=== PATIENT | female | born 1965 | race Hispanic/Latino ===

== ENCOUNTER → 2017-05-08 | Outpatient (CLI) | payer BC ==
--- NOTE | 2017-05-21 16:20 | Diagnostic Imaging Report ---
#[id number] - MGSCRBIL #BILATERAL FIRST EVER DIGITAL SCREENING MAMMOGRAM WITH CAD: 05/08/2017 CLINICAL: Routine screening. Baseline exam. No prior exams were available for comparison. Current study contains 4 films. There are scattered fibroglandular elements in both breasts. Current study was also evaluated with a Computer Aided Detection (CAD) system. There is a small oval mass with benign characteristics in the right breast at 3 o'clock middle depth. Scattered benign calcification and vascular calcification is present in both breasts. No other significant masses, calcifications, or other findings are seen in either breast. IMPRESSION: INCOMPLETE: NEEDS ADDITIONAL IMAGING EVALUATION The oval mass in the right breast is indeterminate. Spot compression views with possible ultrasound are recommended. The patient will be contacted by the Mammography Department to schedule this appointment. Fabricio Wu Jr., D.O. cw/:05/21/2017 11:04:14 Mechanical Facilities Technician: Brigette HOBBS)(Jodie), [facility] letter sent: Additional Imaging Needed Mammogram BI-RADS: 0 Indeterminate
== END ==
LOC: MAMMO 10:28
PROVIDERS: ATTEND Family Medicine
DX: Z12.31 Encounter for screening mammogram for malignant neoplasm of breast (principal)
CPT/HCPCS: G0202

== ENCOUNTER 2018-12-07 14:28 | Emergency (ER) | payer SELFPAY ==
[~2018-12-07] VITALS: Ht 154.9 cm; Wt 81.2 kg
--- OUTSIDE RECORDS SUMMARY | 2018-12-07 14:31 | XMS REPORT | Clinical Summary ---
Author Author [facility] Organization [facility] Address Unknown Phone Unavailable Care Team Providers Care Predatory Game Hunter Name Role Phone Asked, No Pcp PCP Unavailable Allergies No Known Allergies Medications End Date Status Medication Sig Dispensed Refills Start Date Active albuterol (ACCUNEB) 1.25 Take 1 ampule 0 mg/3 mL nebulizer by solution nebulization every 6 (six) hours as needed for wheezing. Active lisinopril Take 20 mg by 0 (PRINIVIL,ZESTRIL) 20 mg mouth daily. tablet Active benzonatate (TESSALON) Take 100 mg 0 100 MG capsule by mouth 2 (two) times a day as needed for cough. 01/07/2018 albuterol (PROAIR Inhale 1-2 1 Inhaler 0 HFA,PROVENTIL puffs every 6 8 HFA,VENTOLIN HFA) 90 (six) hours mcg/actuation inhaler as needed for wheezing for up to 30 days. 01/07/2018 albuterol (ACCUNEB) 2.5 Take 3 mL 75 mL 0 mg /3 mL (0.083 %) (2.5 mg 8 nebulizer solution total) by nebulization every 6 (six) hours as needed for wheezing for up to 30 days. Active Problems Not on file Encounters Care Team Description Date Type Specialty Orlando Temple MD Vaginal bleeding (Primary Dx); Acute pain of left knee; Medication refill; Rios cyst, left 12/08/2017 Emergency Emergency Medicine after 12/06/2017 Social History Date Tobacco Use Types Packs/Day Years Used Never Smoker Smokeless Tobacco: Never Used Alcohol Use Drinks/Week oz/Week Comments No Sex Assigned at Date Recorded Not on file Industry Job Start Date Occupation Not on file Not on file Not on file Travel End Travel History Travel Start No recent travel history available. Last Filed Vital Signs Time Taken Vital Sign Reading 12/08/2017 5:44 PM CDT Blood Pressure 142/75 12/08/2017 5:44 PM CDT Pulse 72 12/08/2017 4:10 PM CDT Temperature 37.2 C (98.9 F) 12/08/2017 5:44 PM CDT Respiratory Rate 18 12/08/2017 5:44 PM CDT Oxygen Saturation 97% - Inhaled Oxygen - Concentration 12/08/2017 12:50 PM CDT Weight 77.6 kg (171 lb) 12/08/2017 12:50 PM CDT Height 154.9 cm (5' 1") 12/08/2017 12:50 PM CDT Body Mass Index 32.31 Plan of Treatment Health Maintenance Due Date Last Done Comments BREAST CANCER SCREENING 2015 COLONOSCOPY SCREENING 2015 SHINGLES VACCINES (#1) 2015 INFLUENZA VACCINE 12/17/2018 Procedures Comments Procedure Name Priority Date/Time Associated Diagnosis US DUPLEX VENOUS LOWER STAT 12/08/2017 EXTREMITY LEFT 5:07 PM CDT URINALYSIS SCREEN AND Routine 12/08/2017 MICROSCOPY, WITH REFLEX 4:37 PM CDT TO CULTURE HCG QUALITATIVE, URINE Routine 12/08/2017 SCREEN 4:37 PM CDT GRAM STAIN Routine 12/08/2017 4:37 PM CDT URINE CULTURE Routine 12/08/2017 4:37 PM CDT XR KNEE 4+ VW LEFT STAT 12/08/2017 4:04 PM CDT ZZESTIMATED GFR STAT 12/08/2017 1:38 PM CDT COMPREHENSIVE METABOLIC STAT 12/08/2017 PANEL 1:38 PM CDT TYPE AND SCREEN Routine 12/08/2017 1:38 PM CDT HC COMPLETE BLD COUNT STAT 12/08/2017 W/AUTO DIFF 1:38 PM CDT after 12/06/2017 Results * PV Duplex Venous Lower Extremity (12/08/2017 5:07 PM CDT) Specimen Narrative Performed At EXAMINATION:US DUPLEX VENOUS LOWER EXTREMITY LEFT RADIANT CLINICAL HISTORY:rios cyst COMPARISON:None. TECHNIQUE:Grayscale, color Doppler, and spectral waveform analysis of the left lower extremity deep venous system was performed. The common femoral, superficial femoral, proximal deep femoral, greater saphenous, and popliteal veins were evaluated. The calf veins were also evaluated. FINDINGS: The left common femoral, superficial femoral, and popliteal veins are compressible. They demonstrate normal venous waveforms and response to augmentation. There is flow in the visualized calf veins. A 5 cm Rios cyst is noted.. The right common femoral vein is patent. IMPRESSION: A 5 cm left-sided Rios cyst is present. There is no evidence of deep venous thrombosis. [facility]-[id number] Procedure Note Interface, Radiology Results Incoming - 12/08/2017 5:12 PM CDT EXAMINATION: US DUPLEX VENOUS LOWER EXTREMITY LEFT CLINICAL HISTORY: rios cyst COMPARISON: None. TECHNIQUE: Grayscale, color Doppler, and spectral waveform analysis of the left lower extremity deep venous system was performed. The common femoral, superficial femoral, proximal deep femoral, greater saphenous, and popliteal veins were evaluated. The calf veins were also evaluated. FINDINGS: The left common femoral, superficial femoral, and popliteal veins are compressible. They demonstrate normal venous waveforms and response to augmentation. There is flow in the visualized calf veins. A 5 cm Rios cyst is noted.. The right common femoral vein is patent. IMPRESSION: A 5 cm left-sided Rios cyst is present. There is no evidence of deep venous thrombosis. [facility]-[id number] Performing Organization Address City/State/Zipcode Phone Number [facility] [address] [place] [address] * Urinalysis screen and microscopy, with reflex to culture (12/08/2017 4:37 PM CDT) Specimen site Clean catch [facility] OF [facility]Y AND GENOMIC MEDICINE Color, UA Yellow [facility] OF PATHOLOGY AND GENOMIC MEDICINE Appearance, UA Cloudy [facility] OF PATHOLOGY AND GENOMIC MEDICINE Specific 1.028 1.001 - 1.035 [facility] gravity, OF PATHOLOGY AND GENOMIC MEDICINE pH, UA 5.0 5.0 - 8.5 [facility] OF PATHOLOGY AND GENOMIC MEDICINE Protein, UA 1+ (A) Negative [facility] OF PATHOLOGY AND GENOMIC MEDICINE Glucose, UA Negative Negative [facility] OF PATHOLOGY AND GENOMIC MEDICINE Ketones, UA Trace (A) Negative [facility] OF PATHOLOGY AND GENOMIC MEDICINE Bilirubin, UA Negative Negative [facility] OF PATHOLOGY AND GENOMIC MEDICINE Blood, UA Large (A) Negative [facility] OF PATHOLOGY AND GENOMIC MEDICINE Nitrite, UA Negative Negative [facility] OF PATHOLOGY AND GENOMIC MEDICINE Urobilinogen, Negative <2.0 [facility] UA OF PATHOLOGY AND GENOMIC MEDICINE Leukocyte Small (A) Negative [facility] esterase, UA OF PATHOLOGY AND GENOMIC MEDICINE Epithelial Many /HPF [facility] cells, UA OF PATHOLOGY AND GENOMIC MEDICINE WBC, UA 46 (H) 0 - 5 /HPF [facility] OF PATHOLOGY AND GENOMIC MEDICINE RBC, UA >200 (H) 0 - 5 /HPF [facility] OF PATHOLOGY AND GENOMIC MEDICINE Bacteria, UA Trace None seen [facility] OF PATHOLOGY AND GENOMIC MEDICINE Yeast, UA None seen [facility] OF PATHOLOGY AND GENOMIC MEDICINE Yeast with None seen [facility] pseudohyphae, OF PATHOLOGY UA AND GENOMIC MEDICINE Calcium oxalate Few [facility] crystals, UA OF PATHOLOGY AND GENOMIC MEDICINE Specimen Urine Performing Organization Address City/[facility]/Zipcode Phone Number [facility] [address] [place] [address] PATHOLOGY AND [facility] MEDICINE * hCG qualitative, urine screen (12/08/2017 4:37 PM CDT) Pathologist [facility] hCG Negative Negative [facility] qualitative, Comment: OF PATHOLOGY urine The manufacturers stated AND GENOMIC sensitivity of HcG test for MEDICINE serum is >/=10 mIU/ml and urine is >/=20mIU/ml. Specimen Urine Performing Organization Address City/[facility]/Zipcode Phone Number [facility] [address] [place] [address] PATHOLOGY AND [facility] MEDICINE * Gram stain (12/08/2017 4:37 PM CDT) Gram stain Few WBC's [facility] result Occasional Gram positive cocci OF PATHOLOGY in pairs AND GENOMIC Occasional Gram positive rods MEDICINE Comment: Specimen Information Specimen Source: Urine Specimen Site: Clean catch Specimen Urine Performing Organization Address City/State/Zipcode Phone Number [facility] DEPART[facility] OF [address] [place] [address] PATHOLOGY AND GENOMIC MEDICINE * Urine culture (12/08/2017 4:37 PM CDT) Pathologist [facility] Urine culture Staphylococcus aureus [facility] isolate >10-5 cfu/ml OF PATHOLOGY This organism is Methicillin AND GENOMIC Sensitive. MEDICINE (A) Comment: Specimen Information Specimen Source: Urine Specimen Site: Clean catch Urine culture Mixed Gram positive zari [facility] isolate 10-3 cfu/ml OF PATHOLOGY (A) AND GENOMIC MEDICINE Specimen Urine Antibiotic Method Susceptibility Organism Clindamycin ROBBY <=0.5 mcg/mL: Resistant Staphylococcus aureus Erythromycin ROBBY >4 mcg/mL: Resistant Staphylococcus aureus Nitrofurantoin ROBBY <=16 mcg/mL: Susceptible Staphylococcus aureus Levofloxacin ROBBY <=1 mcg/mL: Susceptible Staphylococcus aureus Linezolid ROBBY 2 mcg/mL: Susceptible Staphylococcus aureus Oxacillin ROBBY 0.5 mcg/mL: Susceptible Staphylococcus aureus Penicillin G ROBBY <=0.125 mcg/mL: Susceptible Staphylococcus aureus Rifampin ROBBY <=0.5 mcg/mL: Susceptible Staphylococcus aureus Trimethoprim/Sulfamethoxazole ROBBY <=0.5/9.5 mcg/mL: Susceptible Staphylococcus aureus Tetracycline ROBBY <=0.5 mcg/mL: Susceptible Staphylococcus aureus Vancomycin ROBBY 1 mcg/mL: Susceptible Staphylococcus aureus Performing Organization Address City/[facility] Phone Number [facility] DEPARTMENT OF [address] [place] [address] PATHOLOGY AND GENOMIC MEDICINE * XR Knee 4+ Vw Left (12/08/2017 4:04 PM CDT) Specimen Narrative Performed At Procedure:XR KNEE 4VW LEFT RADIANT REFERRING PHYSICIAN: ORLANDO TEMPLE HISTORY:knee pain COMPARISON: None FINDINGS: No evidence of fracture or dislocation is seen. The joint spaces are relatively maintained. No osteolytic or osteoblastic lesion is identify. Regional soft tissue is unremarkable. No radiopaque foreign body is seen. XR KNEE 4VW LEFTacquired. IMPRESSION: No radiographic evidence of acute fracture or dislocation of the left knee. [facility]-[id number] Procedure Note Interface, Radiology Results Incoming - 12/08/2017 4:12 PM CDT Procedure:XR KNEE 4 VW LEFT REFERRING PHYSICIAN: ORLANDO TEMPLE HISTORY: knee pain COMPARISON: None FINDINGS: No evidence of fracture or dislocation is seen. The joint spaces are relatively maintained. No osteolytic or osteoblastic lesion is identify. Regional soft tissue is unremarkable. No radiopaque foreign body is seen. XR KNEE 4 VW LEFT acquired. IMPRESSION: No radiographic evidence of acute fracture or dislocation of the left knee. [facility]-[id number] Performing Organization Address City/State/Zipcode Phone Number [facility] [address] [place] [address] * Estimated GFR (12/08/2017 1:38 PM CDT) [facility] GFR Non Af Amer 88 mL/min/1.73 m2 [facility] OF [facility]OLOGY AND GENOMIC MEDICINE GFR Af Amer >90 mL/min/1.73 m2 [facility] Comment: OF PATHOLOGY Chronic kidney disease: <60 AND GENOMIC mL/min/1.73m2 MEDICINE Kidney failure: <15 mL/min/1.73m2 The estimated GFR is calculated from the IDMS-traceable Modification of Diet in Renal Disease Equation. The accuracy of the calculation is poor when the creatinine is normal. Calculated values >90 mL/min/1.73m2 are not reported. This equation has not been validated in children (<18 years), women, the elderly (>70 years), or ethnic groups other than Caucasians and Americans. Specimen Plasma specimen Performing Organization Address City/[facility]/Zipcode Phone Number [place] [address] [place] [address] PATHOLOGY AND GENOMIC MEDICINE * CBC with platelet and differential (12/08/2017 1:38 PM CDT) [facility] WBC 7.9 4.2 - 11.0 k/uL [facility] OF PATHOLOGY AND GENOMIC MEDICINE RBC 3.70 (L) 4.04 - 5.86 m/uL [facility] OF PATHOLOGY AND GENOMIC MEDICINE HGB 10.5 (L) 11.5 - 15.3 g/dL [facility] OF PATHOLOGY AND GENOMIC MEDICINE HCT 33.3 (L) 34.0 - 45.0 % [facility] OF PATHOLOGY AND GENOMIC MEDICINE MCV 90.0 80.0 - 98.0 fL [facility] OF PATHOLOGY AND GENOMIC MEDICINE MCH 28.4 27.0 - 34.0 pg [facility] OF PATHOLOGY AND GENOMIC MEDICINE MCHC 31.5 31.5 - 36.5 g/dL [facility] OF PATHOLOGY AND GENOMIC MEDICINE RDW - SD 43.5 37.0 - 51.0 fL [facility] OF PATHOLOGY AND GENOMIC MEDICINE MPV 9.4 7.4 - 10.4 fL [facility] OF PATHOLOGY AND GENOMIC MEDICINE Platelet count 409 (H) 150 - 400 k/uL [facility] OF PATHOLOGY AND GENOMIC MEDICINE Nucleated RBC 0.00 /100 WBC [facility] OF PATHOLOGY AND GENOMIC MEDICINE Neutrophils 74.4 (H) 36.0 - 66.0 % [facility] OF PATHOLOGY AND GENOMIC MEDICINE Lymphocytes 13.4 (L) 24.0 - 44.0 % [facility] OF PATHOLOGY AND GENOMIC MEDICINE Monocytes 7.8 (H) 0.0 - 6.0 % [facility] OF PATHOLOGY AND GENOMIC MEDICINE Eosinophils 3.5 0.0 - 6.0 % [facility] OF PATHOLOGY AND GENOMIC MEDICINE Basophils 0.5 0.0 - 1.2 % [facility] OF PATHOLOGY AND GENOMIC MEDICINE Immature 0.4 0.0 - 1.0 % [facility] granulocytes OF PATHOLOGY AND GENOMIC MEDICINE Specimen Blood Performing Organization Address City/[facility]/[place] [address] PATHOLOGY AND GENOMIC MEDICINE * Type and screen (12/08/2017 1:38 PM CDT) ABO grouping A [facility] OF PATHOLOGY AND GENOMIC MEDICINE Rh type NEG [facility]OLOGY AND GENOMIC MEDICINE Antibody screen NEG [facility] (gel) OF PATHOLOGY AND GENOMIC MEDICINE Specimen Blood Performing Organization Address City/[facility]/[place] [address] PATHOLOGY AND [facility] MEDICINE * Comprehensive metabolic panel (12/08/2017 1:38 PM CDT) Sodium 138 135 - 150 mEq/L [facility] OF PATHOLOGY AND GENOMIC MEDICINE Potassium 4.7 3.5 - 5.0 mEq/L [facility] OF PATHOLOGY AND GENOMIC MEDICINE Chloride 100 98 - 112 mEq/L [facility] OF PATHOLOGY AND GENOMIC MEDICINE CO2 30 24 - 31 mmol/L [facility] OF PATHOLOGY AND GENOMIC MEDICINE Anion gap 8@ANIO 7 - 15 mEq/L [facility] OF PATHOLOGY AND GENOMIC MEDICINE BUN 8 7 - 18 mg/dL [facility] OF PATHOLOGY AND GENOMIC MEDICINE Creatinine 0.70 0.50 - 0.90 mg/dL [facility] OF PATHOLOGY AND GENOMIC MEDICINE Glucose 118 (H) 65 - 100 mg/dL [facility] OF PATHOLOGY AND GENOMIC MEDICINE Calcium 9.7 8.3 - 10.2 mg/dL [facility] OF PATHOLOGY AND GENOMIC MEDICINE Protein 8.4 (H) 6.3 - 8.3 g/dL [facility] OF PATHOLOGY AND GENOMIC MEDICINE Albumin 3.3 (L) 3.5 - 5.0 g/dL [facility] OF PATHOLOGY AND GENOMIC MEDICINE A/G ratio 0.6 (L) 0.7 - 3.8 [facility] OF PATHOLOGY AND GENOMIC MEDICINE Alkaline 80 0 - 104 U/L [facility] phosphatase OF PATHOLOGY AND GENOMIC MEDICINE AST 20 10 - 35 U/L [facility] OF PATHOLOGY AND GENOMIC MEDICINE ALT 10 5 - 50 U/L [facility] OF PATHOLOGY AND GENOMIC MEDICINE Total bilirubin 0.3 0.2 - 1.2 mg/dL [facility] OF PATHOLOGY AND GENOMIC MEDICINE Specimen Plasma specimen Performing Organization Address City/State/Zipcode Phone Number [facility] [place] [address] PATHOLOGY AND GENOMIC MEDICINE after 12/06/2017 Insurance Type Payer Benefit Subscriber ID Effective Phone Address Plan / Dates Group HMO/PPO [facility] xxxxxxxxx 2017-P THCARE resent CHOICE/CHO ICE + Liability Advance Directives Patient has advance care planning documents on file. For more information, lester armendariz contact: All Strauss [address] [place] [address]
--- OUTSIDE RECORDS SUMMARY | 2018-12-07 14:31 | XMS REPORT | Continuity of Care Document ---
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 Name Role Phone [employer]Magic Information [employer] Unavailable Unavailable Problems Problem Status Onset Date Classification Date Reported Comments Source Villonodular synovitis , left knee 06/04/2018 11/14/2018 [facility] UNK Active 03/31/2018 [facility] KNEE ARTHROSCOPY Active 03/31/2018 [facility] Pain in left knee 03/04/2018 09/15/2018 [facility] [place] Discharge Diagnosis: Effusion, left knee 04/13/2017 04/16/2017 [facility] LEFT LEG PAIN Active 04/13/2017 [facility] Discharge Diagnosis: Pain and swelling of left knee 04/11/2017 04/14/2017 [facility] LEG PAIN Active 04/11/2017 [facility] LT KNEE Active 03/19/2017 [facility] [place] Discharge Diagnosis: Viral URI 11/24/2016 11/27/2016 [facility] SOB Active 11/24/2016 [facility] Discharge Diagnosis: Pain 11/05/2015 11/08/2015 [facility] LEFT SIDE PAIN Active 11/05/2015 [facility] Discharge Diagnosis: Chest pain 11/03/2014 11/06/2014 [facility] Discharge Diagnosis: Cough 11/03/2014 11/06/2014 [facility] CHEST PAIN/CONGESTION Active 11/03/2014 [facility] Discharge Diagnosis: Bronchitis 06/20/2014 06/22/2014 [facility] Discharge Diagnosis: Pneumonia 06/20/2014 06/22/2014 [facility] COUGH Active 06/20/2014 [facility] Effusion, left knee 09/15/2018 [facility] [place] Pain in left wrist 09/15/2018 [facility] [place] Pain in right wrist 09/15/2018 [facility] [place] Localized edema 09/15/2018 [facility] [place] Other tear of lateral meniscus, current injury, left knee, initial encounter 11/14/2018 [facility] Chondromalacia patellae, left knee 11/14/2018 [facility] Unspecified urinary incontinence 11/14/2018 [facility] use of antibiotics 11/14/2018 [facility] Exposure to other specified factors, initial encounter 11/14/2018 [place] Bronchitis Resolved Problem 11/14/2018 [facility], [facility] [place],[facility] [place] Cholecystitis Resolved Problem 11/14/2018 [facility], [facility] [place],[facility] [place] Effusion, left knee Active Problem 11/14/2018 [facility], [facility] [place],[facility] [place] Acute pain of left knee Active 11/05/2018 [facility] Medications Medication Details Route Status Patient Instructions Ordering Provider Order Date Source 72 HR Scopolamine 0.0139 MG/HR Transdermal Patch 1 patch, Route: TOP, Drug Form: ERFILM, Dosing Weight 73.636, kg, ONCE, Start date: 04/27/18 15:23:00 PATHOLOGY LABORATORY AIDE, Stop date: 04/27/18 15:23:00 CSTNotes: Change patch every 72 hours (Same as: Transderm-Scop) Inactive 04/27/2018 [facility] Dexamethasone 4 mg, 1 mL, Route: IV, Drug form: INJ, ONCE, Dosing Weight 73.636, kg, Start date: 04/27/18 15:22:00 PATHOLOGY LABORATORY AIDE, Stop date: 04/27/18 15:22:00 CSTNotes: Concentration: 4mg/ml Inactive 04/27/2018 [facility] Phenergan 12.5 mg, 0.5 mL, Route: IM, Drug form: INJ, ONCE, Dosing Weight 73.636, kg, Start date: 04/27/18 15:22:00 PATHOLOGY LABORATORY AIDE, Stop date: 04/27/18 15:22:00 CSTNotes: Do not give IV push. (Same as: Phenergan) Inactive 04/27/2018 [facility] Tramadol 50 mg, 1 tab, Route: PO, Drug form: TAB, Q6H, Dosing Weight 73.636, kg, PRN Pain Score 1-3, Start date: 04/27/18 15:03:00 PATHOLOGY LABORATORY AIDE, Duration: 30 day, Stop date: 05/27/18 15:02:00 CSTNotes: Not to exceed 4 00mg/day. (Same As: Ultram) Inactive 04/27/2018 [facility] Acetaminophen 325 MG / Hydrocodone Bitartrate 10 MG Oral Tablet 1 tab, Route: PO, Drug Form: TAB, Dosing Weight 73.636, kg, Q4H, PRN Pain Score 4-6, Start date: 04/27/18 15:03:00 PATHOLOGY LABORATORY AIDE, Duration: 30 day, Stop date: 05/27/18 15:02:00 CSTNotes: Do not exceed 4gm/day of acetaminophen. (Same as: [place] 325/10) Inactive 04/27/2018 [facility] acetaminophen (ANES) Route: IV, Drug form: INJ, ONCE, Stop date: 04/27/18 14:17:00 PATHOLOGY LABORATORY AIDE Inactive 04/27/2018 [facility] glycopyrrolate (ANES) Route: IV, Drug form: INJ, ONCE, Stop date: 04/27/18 14:17:00 PATHOLOGY LABORATORY AIDE Inactive 04/27/2018 [facility] neostigmine (ANES) Route: IV, Drug form: INJ, ONCE, Stop date: 04/27/18 14:17:00 PATHOLOGY LABORATORY AIDE Inactive 04/27/2018 [facility] rocuronium (ANES) Route: IV, Drug form: INJ, ONCE, Stop date: 04/27/18 14:14:00 PATHOLOGY LABORATORY AIDE Inactive 04/27/2018 [facility] metoprolol (ANES) Route: IV, Drug form: INJ, ONCE, Stop date: 04/27/18 14:04:00 PATHOLOGY LABORATORY AIDE Inactive 04/27/2018 [facility] hydromorphone (ANES) Route: IV, Drug form: INJ, ONCE, Stop date: 04/27/18 12:59:00 PATHOLOGY LABORATORY AIDE Inactive 04/27/2018 [facility] ondansetron (ANES) Route: IV, Drug form: INJ, ONCE, Stop date: 04/27/18 12:34:00 PATHOLOGY LABORATORY AIDE Inactive 04/27/2018 [facility] ceFAZolin (ANES) Route: IV, Drug form: INJ, ONCE, Stop date: 04/27/18 12:34:00 PATHOLOGY LABORATORY AIDE Inactive 04/27/2018 [facility] propofol (ANES) Route: IV, Drug form: INJ, ONCE, Stop date: 04/27/18 12:34:00 PATHOLOGY LABORATORY AIDE Inactive 04/27/2018 [facility] fentaNYL (ANES) Route: IV, Drug form: INJ, ONCE, Stop date: 04/27/18 12:34:00 PATHOLOGY LABORATORY AIDE Inactive 04/27/2018 [facility] dexamethasone (ANES) Route: IV, Drug form: INJ, ONCE, Stop date: 04/27/18 12:34:00 PATHOLOGY LABORATORY AIDE Inactive 04/27/2018 [facility] lidocaine (ANES) Route: IV, Drug form: INJ, ONCE, Stop date: 04/27/18 12:34:00 PATHOLOGY LABORATORY AIDE Inactive 04/27/2018 [facility] midazolam (ANES) Route: IV, Drug form: SOLN, ONCE, Stop date: 04/27/18 12:19:00 PATHOLOGY LABORATORY AIDE Inactive 04/27/2018 [facility] Lactated Ringers Injection IV (ANES) 1000 mL Route: IV, Total Volume: 1,000, Start date: 04/27/18 11:44:00 PATHOLOGY LABORATORY AIDE, Stop date: 04/27/18 12:44:00 PATHOLOGY LABORATORY AIDE Inactive 04/27/2018 [facility] Vancomycin 1,250 mg, Route: IV, ONCE, Dosing Weight 73.636, kg, Start date: 04/27/18 7:55:00 PATHOLOGY LABORATORY AIDE, Stop date: 04/27/18 7:55:00 PATHOLOGY LABORATORY AIDE, ABX Indication: Surgical ProphylaxisNotes: TIME CRITICAL MEDICATION (Same As: Vanc ocin) Infusion rate 2001 mg: infuse over 2.5 hours For adult patients only: Round to nearest 250 mg per Medical Staff approval MEDICATION WASTE Product Size: 1000 mg Product Wasted: ___ mg Inactive 04/27/2018 [facility] Calcium Chloride 0.0014 MEQ/ML / Potassium Chloride 0.004 MEQ/ML / Sodium Chloride 0.103 MEQ/ML / Sodium Lactate 0.028 MEQ/ML Injectable Solution 1,000 mL, Rate: 25 ml/hr, Infuse over: 40 hr, Route: IV, Dosing Weight 73.636 kg, Total Volume: 1,000, Start date: 04/27/18 7:54:00 PATHOLOGY LABORATORY AIDE, Duration: 30 day, Stop date: 05/27/18 7:53:00 PATHOLOGY LABORATORY AIDE, 1.81, m2 Inactive 04/27/2018 [facility] ceFAZolin + Sodium Chloride 0.9% IV 100 mL 2 gm, Route: IVPB, ONCALL, Start date: 04/27/18 6:00:00 PATHOLOGY LABORATORY AIDE, Duration: 1 doses or times, Stop date: 04/27/18 12:00:00 PATHOLOGY LABORATORY AIDE, ABX Indication: Surgical ProphylaxisNotes: (Same As: Sweta Goldmanzosuman) MEDICATION WASTE Product Size: 1000 mg Product Wasted: ___ mg Inactive 04/27/2018 [facility] Albuterol 0.83 MG/ML Inhalant Solution 2.49 mg, 3 mL, Route: NEB, Drug form: SOLN, Q20Min, Dosing Weight 73.636, kg, PRN Wheezing, Priority: STAT, Start date: 04/26/18 8:11:00 PATHOLOGY LABORATORY AIDE, Duration: 30 day, Stop date: 05/26/18 8:10:00 CSTNotes: SEE RT DOCUMENTATION (Same as: Proventil) No Longer Active 04/26/2018 [facility] Diphenhydramine 12.5 mg, 0.25 mL, Route: IVP, Drug form: INJ, Q6H, Dosing Weight 73.636, kg, PRN Itching, Start date: 04/26/18 8:11:00 PATHOLOGY LABORATORY AIDE, Duration: 30 day, Stop date: 05/26/18 8:10:00 CSTNotes: (Same as: Benadryl) No Longer Active 04/26/2018 [facility] Ondansetron 4 mg, 2 mL, Route: IVP, Drug form: INJ, ONCE, Dosing Weight 73.636, kg, PRN Nausea & Vomiting, Start date: 04/26/18 8:11:00 CSTNotes: (Same as: Zofran) MEDICATION WASTE Product Size: 4 mg Product Wasted: ___ mg No Longer Active 04/26/2018 [facility] Meperidine 12.5 mg, 0.5 mL, Route: IVP, Drug form: INJ, Q30Min, Dosing Weight 73.636, kg, PRN Other -See Comment, For shivering, Start date: 04/26/18 8:11:00 PATHOLOGY LABORATORY AIDE, Duration: 2 doses or times, Stop date: Limited # of timesNotes: (Same as: Demerol) "Use Precaution in Elderly, Seizure disorders, and Renal impairment" No Longer Active 04/26/2018 [facility] Naloxone 0.1 mg, 0.25 mL, Route: SUB-Q, Drug form: INJ, Q6H, Dosing Weight 73.636, kg, PRN Itching, Start date: 04/26/18 8:11:00 PATHOLOGY LABORATORY AIDE, Duration: 30 day, Stop date: 05/26/18 8:10:00 CSTNotes: Same as Narcan No Longer Active 04/26/2018 [facility] Morphine 4 mg, 1 mL, Route: IVP, Drug form: SOLN, Q5Min, Dosing Weight 73.636, kg, PRN Pain Score 7-10, Start date: 04/26/18 8:11:00 PATHOLOGY LABORATORY AIDE, Duration: 3 doses or times, Stop date: Limited # of timesNotes: (Same as:MORPhine Sulfate) No Longer Active 04/26/2018 [facility] Hydromorphone 0.5 mg, 0.5 mL, Route: IVP, Drug form: INJ, Q5Min, Dosing Weight 73.636, kg, PRN Pain Score 7-10, Start date: 04/26/18 8:11:00 PATHOLOGY LABORATORY AIDE, Duration: 4 doses or times, Stop date: Limited # of timesNotes: Frandy e as: Dilaudid No Longer Active 04/26/2018 [facility] Fentanyl 50 microgram, 1 mL, Route: IVP, Drug form: INJ, Q5Min, Dosing Weight 73.636, kg, PRN Pain Score 7-10, Priority: Routine, Start date: 04/26/18 8:11:00 PATHOLOGY LABORATORY AIDE, Duration: 2 doses or times, Stop date: Limited # of timesNotes: (Same as: Sublimaze) Preservative free. No Longer Active 04/26/2018 [facility] Oxycodone 10 mg, 10 mL, Route: NG, Drug form: LIQ, Q4H, Dosing Weight 73.636, kg, PRN Pain Score 7-10, Start date: 04/26/18 8:11:00 PATHOLOGY LABORATORY AIDE, Duration: 30 day, Stop date: 05/26/18 8:10:00 CSTNotes: (Same as: 'Roxic odone) No Longer Active 04/26/2018 [facility] Flumazenil 0.2 mg, 2 mL, Route: IVP, Drug form: INJ, PRN, Dosing Weight 73.636, kg, PRN Benzodiazepine Reversal, Initial dose, Start date: 04/26/18 8:11:00 PATHOLOGY LABORATORY AIDE, Duration: 30 day, Stop date: 05/26/18 8:10:00 PATHOLOGY LABORATORY AIDE Notes: (Same as: Romazicon) No Longer Active 04/26/2018 [facility] Acetaminophen 1,000 mg, 100 mL, Route: IVPB, Drug form: INJ, ONCE, Dosing Weight 73.636, kg, PRN Pain Score 1-3, Start date: 04/26/18 8:11:00 CSTNotes: Infuse over 15 minutes Do not exceed 4gm/day of acetaminophen MEDICATION WASTE Product Size: 1000 mg Product Wasted: ___ mg No Longer Active 04/26/2018 [facility] Ketorolac 30 mg, 1 mL, Route: IVP, Drug form: INJ, ONCE, Dosing Weight 73.636, kg, Start date: 04/26/18 8:11:00 PATHOLOGY LABORATORY AIDE, Stop date: 04/26/18 8:11:00 CSTNotes: (Same as:Toradol) IV bolus must be given >15 seconds. Give IM administration slowly and deeply into the muscle. Not for use > 4 days MEDICATION WASTE Product Size: 30 mg Product Wasted: ___ mg No Longer Active 04/26/2018 [facility] Hydralazine 10 mg, 0.5 mL, Route: IVP, Drug form: INJ, Q20Min, Dosing Weight 73.636, kg, PRN Elevated BP, Start date: 04/26/18 8:11:00 PATHOLOGY LABORATORY AIDE, Duration: 2 doses or times, Stop date: Limited # of timesNotes: (Same as: Apresoline) Push over 5 minutes No Longer Active 04/26/2018 [facility] Labetalol 10 mg, 2 mL, Route: IVP, Drug form: INJ, Q5Min, Dosing Weight 73.636, kg, PRN Elevated BP, Start date: 04/26/18 8:11:00 PATHOLOGY LABORATORY AIDE, Duration: 5 doses or times, Stop date: Limited # of timesNotes: (Same as: Nor modyne, Trandate) Push over 2 minutes Give bolus over 2-3 minutes. No Longer Active 04/26/2018 [facility] esmolol 10 mg, 1 mL, Route: IVP, Drug form: INJ, Q5Min, Dosing Weight 73.636, kg, PRN Other -See Comment, Start date: 04/26/18 8:11:00 PATHOLOGY LABORATORY AIDE, Duration: 5 doses or times, Stop date: Limited # of timesNotes: (Same as: Brevibloc) No Longer Active 04/26/2018 [facility] amoxicillin 500 mg oral capsule 500 mg=1 cap, PO, TID, 0 Refill(s) Active 04/16/2018 [facility] ketorolac (TORADOL) 60 mg/2 mL injection 60 mg Intramuscular Inactive 01/30/2018 [facility] Ketorolac 60 Mg/2 Ml Intramuscular Solution Intramuscular Inactive 01/30/2018 [facility] Ketorolac 60 Mg/2 Ml Intramuscular Solution Intramuscular Inactive 01/30/2018 [facility] indomethacin (INDOCIN) 50 mg capsule Take 1 capsule by mouth 2 times daily as needed for Pain. Oral Active 01/30/2018 [facility] Indomethacin 50 Mg Capsule Take 1 capsule by mouth 2 times daily as needed for Pain. Oral Active 01/30/2018 [facility] Ondansetron 4 MG Disintegrating Tablet [Zofran] 4 mg=1 tab, PO, BID, PRN Nausea and Vomiting, Dissolve tab under tongue, # 10 tab, 0 Refill(s) Active 04/14/2017 [facility] Motrin 600 mg oral tablet 600 mg=1 tab, PO, Q6H, PRN Pain, take with food, # 30 tab, 0 Refill(s) No Longer Active 04/14/2017 [facility] tramadol hydrochloride 50 MG Oral Tablet 50 mg=1 tab, PO, BID, X 15 day, # 30 tab, 0 Refill(s) Active 04/14/2017 [facility] Zofran ODT 4 mg, Route: PO, Drug form: TABDIS, ONCE, Dosing Weight 80, kg, Priority: STAT, Start date: 04/13/17 17:33:00 PATHOLOGY LABORATORY AIDE, Stop date: 04/13/17 17:33:00 PATHOLOGY LABORATORY AIDE Inactive 04/13/2017 [facility] Acetaminophen 325 MG / Hydrocodone Bitartrate 5 MG Oral Tablet [[place] 5/325] 2 tab, Route: PO, Drug Form: TAB, Dosing Weight 80, kg, ONCE, STAT, Start date: 04/13/17 17:33:00 PATHOLOGY LABORATORY AIDE, Stop date: 04/13/17 17:33:00 PATHOLOGY LABORATORY AIDE Inactive 04/13/2017 [facility] tramadol hydrochloride 50 MG Oral Tablet [Ultram] 50 mg=1 tab, PO, Q4H, PRN pain, X 3 day, # 20 tab, 0 Refill(s) Active 04/12/2017 [facility] Acetaminophen 325 MG / Hydrocodone Bitartrate 10 MG Oral Tablet [[place] 10/325] 1 tab, Route: PO, Drug Form: TAB, Dosing Weight 80, kg, ONCE, STAT, Start date: 04/11/17 17:47:00 PATHOLOGY LABORATORY AIDE, Stop date: 04/11/17 17:47:00 CSTNotes: Do not exceed 4gm/day of acetaminophen. (Same as: [place] 325/10) Inactive 04/11/2017 [facility] Albuterol 0.83 MG/ML Inhalant Solution 2.49 mg=3 mL, NEB, Q6H, PRN as needed for shortness of breath, # 120 ea, 3 Refill(s) Active 11/24/2016 [facility] GI cocktail 30 mL, Route: PO, Drug Form: SUSP, Dosing Weight 77.273, kg, ONCE, STAT, Start date: 11/24/16 5:57:00 CDT, Stop date: 11/24/16 5:57:00 CDTNotes: G.I. Cocktail=antacid with simethicone 22.5 mL - lidocaine viscous 7.5 mL Inactive 11/24/2016 [facility] Dexamethasone 10 mg, Route: IVP, ONCE, Dosing Weight 77.273, kg, Priority: STAT, Start date: 11/24/16 5:57:00 CDT, Stop date: 11/24/16 5:57:00 CDT Inactive 11/24/2016 [facility] Acetaminophen 300 MG / Codeine Phosphate 30 MG Oral Tablet [Tylenol with Codeine #3] 1 - 2 tab, PO, Q6H, PRN Pain, X 4 day, # 24 tab, 0 Refill(s) Inactive 11/24/2016 [facility] Saline Flush 0.9% 10 mL, Route: IVP, Drug Form: INJ, Dosing Weight 77.273, kg, PRN, PRN Line Flush, Start date: 11/24/16 4:11:00 CDT, Duration: 30 day, Stop date: 12/24/16 4:10:00 CDTNotes: (Same as: BD Posiflush) Inactive 11/24/2016 [facility] Ibuprofen 800 mg, Route: PO, Drug form: TAB, ONCE, Dosing Weight 78.182, kg, Priority: STAT, Start date: 11/05/15 12:43:00 CDT, Stop date: 11/05/15 12:43:00 CDT Inactive 11/05/2015 [facility] Cyclobenzaprine hydrochloride 5 MG Oral Tablet [Flexeril] 5 mg=1 tab, PO, TID, X 7 day, # 21 tab, 0 Refill(s) Active 11/05/2015 [facility] Naproxen 500 MG Oral Tablet [Naprosyn] 500 mg=1 tab, PO, BID, # 60 tab, 0 Refill(s) Active 11/05/2015 [facility] 200 ACTUAT Albuterol 0.09 MG/ACTUAT Metered Dose Inhaler 2 puff, INHALATION, QID, PRN for wheezing, # 25 gm, 0 Refill(s) Active 11/03/2014 [facility] predniSONE 20 mg oral tablet 60 mg=3 tab, PO, Daily, Take 3 tablets for 60 mg dose, X 3 day, # 9 tab, 0 Refill(s)Special Instructions: Take 3 tablets for 60 mg dose Active 11/03/2014 [facility] homatropine methylbromide 0.3 MG/ML / Hydrocodone Bitartrate 1 MG/ML Oral Solution [Hycodan] 5 ml, PO, Q4H, PRN for cough, X 14 day, # 420 mL, 0 Refill(s) Active 11/03/2014 [facility] homatropine methylbromide 0.3 MG/ML / Hydrocodone Bitartrate 1 MG/ML Oral Solution [Hycodan] 5 mL, Route: PO, Dosing Weight 78.182, kg, Q4H, Start date: 11/03/14 12:00:00, Duration: 30 day, Stop date: 12/03/14 8:00:00 Inactive 11/03/2014 [facility] homatropine methylbromide 0.3 MG/ML / Hydrocodone Bitartrate 1 MG/ML Oral Solution 5 mL, Route: PO, Dosing Weight 78.182, kg, Q4H, Start date: 11/03/14 12:00:00, Duration: 30 day, Stop date: 12/03/14 8:00:00 Inactive 11/03/2014 [facility] homatropine methylbromide 0.3 MG/ML / Hydrocodone Bitartrate 1 MG/ML Oral Solution [Hycodan] 5 mL, Route: PO, Dosing Weight 78.182, kg, ONCE, Start date: 11/03/14 11:02:00, Stop date: 11/03/14 11:02:00 Inactive 11/03/2014 [facility] Dexamethasone 10 mg, Route: IM, ONCE, Dosing Weight 78.182, kg, Priority: STAT, Start date: 11/03/14 10:42:00, Stop date: 11/03/14 10:42:00 Inactive 11/03/2014 [facility] Albuterol 0.833 MG/ML / Ipratropium [place] 0.167 MG/ML Inhalant Solution [DuoNeb] 3 ml, Route: INHALATION, Drug Form: SOLN, Dosing Weight 78.182, kg, PRN, PRN Respiratory Protocol, Start date: 11/03/14 10:28:00, Duration: 30 day, Stop date: 12/03/14 10:27:00Notes: (Same as: Duoneb) Inactive 11/03/2014 [facility] albuterol CFC free 90 mcg/inh inhalation aerosol with adapter 2 puff, INHALATION, Q4H, for wheezing, # 9 gm, 0 Refill(s) Active 06/20/2014 [facility] Levofloxacin 750 MG Oral Tablet [Levaquin] 750 mg=1 tab, PO, Q24H, # 10 tab, 0 Refill(s) Active 06/20/2014 [facility] Prednisone 60 mg, Route: PO, Drug form: TAB, ONCE, Dosing Weight 78.182, kg, Priority: STAT, Start date: 06/20/14 4:47:00, Stop date: 06/20/14 4:47:00 Inactive 06/20/2014 [facility] Levaquin 750 mg, 1 tab, Route: PO, Drug form: TAB, ONCE, Dosing Weight 78.182, kg, Start date: 06/20/14 4:47:00, Stop date: 06/20/14 4:47:00Notes: Do not give w/antacids, dairy pdt & minerals Take 1 hr before or 2 hr after dairy products Inactive 06/20/2014 [facility] Albuterol 0.83 MG/ML Inhalant Solution 2.49 mg, 3 mL, Route: NEB, Drug form: SOLN, Q15Min, Dosing Weight 78.182, kg, Priority: STAT, Start date: 06/20/14 4:47:00, Duration: 2 doses or times, Stop date: 06/20/14 5:02:00Notes: SEE RT DOCUMENTATION (Same as: Proventil) Inactive 06/20/2014 [facility] Ketorolac 60 mg, Route: IM, Drug form: INJ, ONCE, Dosing Weight 78.182, kg, Priority: STAT, Start date: 06/20/14 4:46:00, Stop date: 06/20/14 4:46:00 Inactive 06/20/2014 [facility] Albuterol 0.833 MG/ML / Ipratropium [place] 0.167 MG/ML Inhalant Solution [DuoNeb] 3 ml, Route: INHALATION, Drug Form: SOLN, Dosing Weight 78.182, kg, PRN, PRN Respiratory Protocol, Start date: 06/20/14 4:46:00, Duration: 30 day, Stop date: 07/20/14 4:45:00Notes: (Same as: Duoneb) Inactive 06/20/2014 [facility] Allergies, Adverse Reactions, Alerts Substance Category Reaction Severity Reaction type Status Date Reported Comments Source No Known Medication Allergies Assertion Drug allergy [facility] Immunizations No Data Provided for This Section Results Order Name Results Value Reference Range Date Interpretation Comments Source URINE CHEM U Preg Negative (04/27/18 9:55 AM) Negative 04/27/2018 [facility] RAPID Grp A Strep Scr Negative (11/24/16 4:36 AM) Negative 11/24/2016 [facility] CARDIAC ENZYMES CK MB 0.9 0.5 - 3.6 11/24/2016 [facility] CARDIAC ENZYMES BNP 7 <=100 pg/mL 11/24/2016 [facility] CARDIAC ENZYMES Troponin-I <0.02 0.00 - 0.40 11/24/2016 [facility] CARDIAC ENZYMES Total CK 149 12 - 191 11/24/2016 [facility] CARDIAC ENZYMES CK MB Index 0.6 0.0 - 2.5 11/24/2016 [facility] ELECTROLYTES AGAP 10.5 10.0 - 20.0 11/24/2016 [facility] ELECTROLYTES Bili Total 0.4 0.2 - 1.3 11/24/2016 [facility] ELECTROLYTES B/C Ratio 17 6 - 25 11/24/2016 [facility] ELECTROLYTES eGFR 101 11/24/2016 Result Comment: The eGFR is calculated using the CKD-EPI formula. In most young, healthy individuals the eGFR will be >90 mL/min/1.73m2. The eGFR declines with age. An eGFR of 60-89 may be normal in some populations, particularly the elderly, for whom the CKD-EPI formula has not been extensively validated. Use of the eGFR is not recommended in the following populations:

Individuals with unstable creatinine concentrations, including patients and those with serious co-morbid conditions.

Patients with extremes in muscle mass or diet.

The data above are obtained from the National Kidney Disease Education Program (NKDEP) which additionally recommends that when the eGFR is used in patients with extremes of body mass index for purposes of drug dosing, the eGFR should be multiplied by the estimated BMI. [facility] ELECTROLYTES A/G Ratio 0.9 0.7 - 1.6 11/24/2016 [facility] ELECTROLYTES Globulin 3.9 2.7 - 4.2 11/24/2016 [facility] ELECTROLYTES Potassium Lvl 3.5 3.5 - 5.1 11/24/2016 [facility] ELECTROLYTES ALT 16 0 - 65 11/24/2016 [facility] ELECTROLYTES Albumin Lvl 3.4 3.5 - 5.0 11/24/2016 [facility] ELECTROLYTES Total Protein 7.3 6.4 - 8.4 11/24/2016 [facility] ELECTROLYTES Calcium Lvl 8.9 8.5 - 10.5 11/24/2016 [facility] ELECTROLYTES CO2 27 24 - 32 11/24/2016 [facility] ELECTROLYTES Chloride Lvl 104 95 - 109 11/24/2016 [facility] ELECTROLYTES Sodium Lvl 138 135 - 145 11/24/2016 [facility] ELECTROLYTES Glucose Lvl 93 70 - 99 11/24/2016 [facility] ELECTROLYTES Creatinine Lvl 0.69 0.50 - 1.40 11/24/2016 [facility] ELECTROLYTES BUN 12 7 - 22 11/24/2016 [facility] ELECTROLYTES Alk Phos 87 39 - 136 11/24/2016 [facility] ELECTROLYTES AST 17 0 - 37 11/24/2016 [facility] ENDOCRINOLOGY S Preg Negative *NA* (11/24/16 4:32 AM) Negative 11/24/2016 [facility] HEMATOLOGY PTT 33.0 22.9 - 35.8 11/24/2016 [facility] HEMATOLOGY PT 14.2 12.0 - 14.7 11/24/2016 [facility] HEMATOLOGY INR 1.08 0.85 - 1.17 11/24/2016 [facility] RBC 3.85 4.20 - 5.40 11/24/2016 [facility] Hgb 9.4 12.0 - 16.0 11/24/2016 [facility] WBC 7.0 3.7 - 10.4 11/24/2016 [facility] MCH 24.4 27.0 - 31.0 11/24/2016 [facility] Hct 29.3 36.0 - 48.0 11/24/2016 [facility] RDW 16.8 11.5 - 14.5 11/24/2016 [facility] [facility] [place] MCHC 32.0 32.0 - 36.0 11/24/2016 [facility] MCV 76.2 80.0 - 98.0 11/24/2016 [facility] MPV 8.0 7.4 - 10.4 11/24/2016 [facility] Platelet 360 133 - 450 11/24/2016 [facility] Eosinophils # 0.4 0.0 - 0.5 11/24/2016 [facility] Lymphocytes # 1.2 1.0 - 5.5 11/24/2016 [facility] Monocytes # 0.6 0.0 - 0.8 11/24/2016 [facility] Microcyte 1+ *ABN* (11/24/16 4:32 AM) None Seen 11/24/2016 [facility] Basophils # 0.1 0.0 - 0.2 11/24/2016 [facility] Basophils 0.9 0.0 - 1.0 11/24/2016 [facility] Segs-Bands # 4.9 1.5 - 8.1 11/24/2016 [facility] Eosinophils 5.1 0.0 - 4.0 11/24/2016 [facility] Monocytes 7.9 2.0 - 12.0 11/24/2016 [facility] Segs 69.3 45.0 - 75.0 11/24/2016 [facility] Lymphocytes 16.8 20.0 - 40.0 11/24/2016 [facility] Pathology Reports No Data Provided for This Section Diagnostic Reports Report Value Date Source Knee wo contrast MRI EXAMINATION: MRI of the left knee without contrast. HISTORY: M25.562 Pain in left knee - M25.562 Pain in left knee; AGE: 52 years GENDER: Female COMPARISON: Left knee radiographs 04/13/2017 TECHNIQUE: Multiplanar, multisequence magnetic resonance imaging of the left knee is performed with an extremity coil without contrast. FINDINGS: Menisci: Medial: The anterior horn, body, and posterior horn are intact. Lateral: The anterior horn, body, and posterior horn are intact. Ligaments: The anterior cruciate ligament and posterior cruciate ligament are intact. The medial collateral ligament and lateral collateral ligament complex are intact. Extensor mechanism: The extensor mechanism is intact. Muscles: There is normal signal intensity and muscle bulk of the musculature at the knee. Cartilage: There is no significant reactive marrow change. The patellofemoral articular cartilage is intact.. The medial tibiofemoral articular cartilage demonstrates grade 2 chondral thinning.. The lateral tibiofemoral articular cartilage demonstrates grade 2 chondral thinning.. Bone: There is moderate marrow edema in the medial tibial spine with focal cortical erosive change. In addition, there is also marrow edema in the marginal lateral femoral condyle with mild cortical indistinctness at this site. Mild marrow edema in the posterior, medial tibial plateau. There are no suspicious bone marrow replacing lesions. Soft tissues: There is large knee joint effusion with marked nodular synovial thickening. Multiple foci of decreased T2 signal within the synovium in the suprapatellar recess. Large multiloculated Rios's cyst. IMPRESSION: 1. 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 Mild erosive change in the medial tibial spine and marginal, femoral condyle. 2. Mild marrow edema in the posterior, medial tibial plateau may represent marrow contusion or developing osseous erosion. 02/26/2018 ALICIA Swenson Wrist complete Bilateral DX EXAM: Wrist complete Bilateral DX HISTORY: - M25.532 Pain in left wrist;M25.531 Pain in right wrist COMPARISON: None 3 views of both wrists. FINDINGS: No fracture is seen. Alignment is normal. There is no significant degenerative change. IMPRESSION: No significant abnormality. 02/26/2018 ALICIA Swenson Knee series 3 views DX EXAM: XR LEFT KNEE 3 VIEWS DATE: 04/13/2017 at 1737 hours INDICATION: - swelling and pain x 3 weeks COMPARISON: April 11, 2017 TECHNIQUE: 3 views of the knee FINDINGS: No acute fracture or malalignment is identified. There is a large knee joint effusion. Minimal subcutaneous fat stranding at the medial aspect of the distal left femur. No additional soft tissue abnormality is identified. IMPRESSION: Large knee joint effusion and minimal subcutaneous edema medial to distal left femur without underlying bony abnormality. UT SECTION: ER 04/13/2017 [facility] Knee series 3 views DX Exam: Left Knee series 3 views DX Clinical Indication: - pain and swelling. Comparison: None FINDINGS: Frontal, lateral and oblique views of the left knee were obtained. There is no fracture or dislocation. The joint spaces are maintained. There is no knee region soft tissue swelling. There is a moderate suprapatellar joint effusion. There are no radiopaque foreign bodies. If there is further concern, recommend follow-up radiographs or MRI for complete assessment. IMPRESSION: 1. No acute fracture or subluxation. 2. Moderate suprapatellar effusion SL: [id number] 04/11/2017 [facility] 1view DX Clinical Indication: - cough; Comparison: 11/03/2014 Technique: X-ray chest frontal projection FINDINGS: There is no consolidation, pleural effusion or pneumothorax. The heart is normal in size. The mediastinum and holly are unremarkable. The visualized bones and soft tissues are within normal limits. IMPRESSION: No chest radiographic evidence of acute cardiopulmonary disease. SL: [id number] 11/24/2016 [facility] 2 views DX PA and LATERAL CHEST (2 views) HISTORY: Cough and fever Comparison is made to 06/20/2014. A study of 02/16/2012 was reviewed. FINDINGS: The lungs are clear. There has been resolution of the right-sided pneumonia noted on 06/20/2014 without sequela. There is now no evidence of an active or acute process within the chest. There are no pleural effusions. The heart and pulmonary vasculature are within normal limits. The regional skeleton is unremarkable. There are surgical clips in the right upper quadrant consistent with a prior cholecystectomy. CONCLUSION: 1. No active disease. 2. Resolution of right-sided pneumonia from 06/20/2014 without sequela. 3. There are surgical clips in the right upper quadrant consistent with a prior cholecystectomy. Coding: Chest 2 views CPT Code: 40971 SL: 13 Bharath Calderon M.D. 11/03/2014 [facility] Consultation Notes No Data Provided for This Section Discharge Summaries No Data Provided for This Section History and Physicals No Data Provided for This Section Vital Signs Vital Sign Value Date Comments Source Systolic (mm Hg) 155 04/27/2018 [facility] Diastolic (mm Hg) 75 04/27/2018 [facility] Respitory Rate 16 04/27/2018 [facility] Systolic (mm Hg) 155 04/27/2018 [facility] Diastolic (mm Hg) 75 04/27/2018 [facility] Respitory Rate 17 04/27/2018 [facility] Systolic (mm Hg) 157 04/27/2018 [facility] Diastolic (mm Hg) 77 04/27/2018 [facility] Respitory Rate 15 04/27/2018 [facility] Temperature Oral (F) 98.1 F 04/16/2018 [facility] Heart Rate 64 04/16/2018 [facility] BMI Calculated 30.67 04/16/2018 [facility] Weight 73.636 04/16/2018 [facility] Height 154.94 cm 04/16/2018 [facility] Systolic (mm Hg) 144 01/30/2018 [facility] Diastolic (mm Hg) 65 01/30/2018 [facility] Heart Rate 73 01/30/2018 [facility] Temperature Oral (F) 36.61 Mikayla 01/30/2018 [facility] Respitory Rate 16 01/30/2018 [facility] Height 152.4 cm 01/30/2018 [facility] Weight 72.303 01/30/2018 [facility] BMI Calculated 31.13 01/30/2018 [facility] Respitory Rate 20 04/14/2017 [facility] Heart Rate 63 04/14/2017 [facility] Systolic (mm Hg) 129 04/14/2017 [facility] Diastolic (mm Hg) 80 04/14/2017 [facility] Temperature Oral (F) 98.3 F 04/14/2017 [facility] Respitory Rate 18 04/14/2017 [facility] Systolic (mm Hg) 136 04/14/2017 [facility] Diastolic (mm Hg) 84 04/14/2017 [facility] Heart Rate 88 04/14/2017 [facility] Temperature Oral (F) 98.0 F 04/13/2017 [facility] Heart Rate 91 04/13/2017 [facility] Respitory Rate 18 04/13/2017 [facility] Systolic (mm Hg) 141 04/13/2017 [facility] Diastolic (mm Hg) 85 04/13/2017 [facility] Systolic (mm Hg) 122 04/12/2017 [facility] Diastolic (mm Hg) 81 04/12/2017 [facility] Temperature Oral (F) 98.1 F 04/12/2017 [facility] Respitory Rate 17 04/12/2017 [facility] BMI Calculated 33.32 04/11/2017 [facility] Weight 80 04/11/2017 [facility] Height 154.94 cm 04/11/2017 [facility] Systolic (mm Hg) 150 04/11/2017 [facility] Diastolic (mm Hg) 85 04/11/2017 [facility] Heart Rate 100 04/11/2017 [facility] Respitory Rate 18 04/11/2017 [facility] Temperature Oral (F) 97.3 F 04/11/2017 [facility] Respitory Rate 18 11/24/2016 [facility] Systolic (mm Hg) 139 11/24/2016 [facility] Diastolic (mm Hg) 78 11/24/2016 [facility] Systolic (mm Hg) 130 11/24/2016 [facility] Diastolic (mm Hg) 70 11/24/2016 [facility] Respitory Rate 17 11/24/2016 [facility] Temperature Oral (F) 98 F 11/24/2016 [facility] Systolic (mm Hg) 126 11/24/2016 [facility] Diastolic (mm Hg) 78 11/24/2016 [facility] Respitory Rate 20 11/24/2016 [facility] Heart Rate 88 11/24/2016 [facility] Heart Rate 79 11/24/2016 [facility] Temperature Oral (F) 98.4 F 11/24/2016 [facility] Height 154.94 cm 11/24/2016 [facility] Weight 77.273 11/24/2016 [facility] BMI Calculated 32.19 11/24/2016 [facility] Temperature Oral (F) 98.5 F 11/24/2016 [facility] Heart Rate 94 11/24/2016 [facility] Respitory Rate 18 11/05/2015 [facility] Systolic (mm Hg) 128 11/05/2015 [facility] Diastolic (mm Hg) 78 11/05/2015 [facility] Heart Rate 79 11/05/2015 [facility] Temperature Oral (F) 97.7 F 11/05/2015 [facility] Systolic (mm Hg) 144 11/03/2014 [facility] Diastolic (mm Hg) 89 11/03/2014 [facility] Respitory Rate 16 11/03/2014 [facility] Heart Rate 77 11/03/2014 [facility] Temperature Oral (F) 98.2 F 11/03/2014 [facility] Respitory Rate 20 11/03/2014 [facility] Weight 78.182 11/03/2014 [facility] Respitory Rate 16 11/03/2014 [facility] Temperature Oral (F) 98 F 11/03/2014 [facility] Systolic (mm Hg) 156 11/03/2014 [facility] Diastolic (mm Hg) 98 11/03/2014 [facility] Heart Rate 84 11/03/2014 [facility] Heart Rate 87 06/20/2014 [facility] Temperature Oral (F) 98.3 F 06/20/2014 [facility] Respitory Rate 18 06/20/2014 [facility] Diastolic (mm Hg) 99 06/20/2014 [facility] Systolic (mm Hg) 138 06/20/2014 [facility] Systolic (mm Hg) 156 06/20/2014 [facility] Diastolic (mm Hg) 101 06/20/2014 [facility] Respitory Rate 20 06/20/2014 [facility] Heart Rate 108 06/20/2014 [facility] Respitory Rate 20 06/20/2014 [facility] Systolic (mm Hg) 170 06/20/2014 [facility] Heart Rate 18 06/20/2014 [facility] Diastolic (mm Hg) 94 06/20/2014 [facility] Temperature Oral (F) 98.1 F 06/20/2014 [facility] Weight 78.182 06/20/2014 [facility] Height 154.94 cm 06/20/2014 [facility] BMI Calculated 32.57 06/20/2014 [facility] Encounters Location Location Details Encounter Type Encounter Number Reason For Visit Attending Provider ADM Date DC Date Status Source [facility] [id number] Nadim Roman Catholic 06/20/2014 06/20/2014 [facility] [id number] Nadim Roman Catholic 11/03/2014 11/03/2014 [facility] [id number] Stephan Tan 11/05/2015 11/05/2015 [facility] Emergency [id number] Yakov Zamorano 11/24/2016 11/24/2016 [facility] Emergency [id number] Caitlin Dexter 04/11/2017 04/12/2017 [facility] Emergency [id number] Juan F Brewer 04/13/2017 04/14/2017 [facility] Emergency Center ([id number]) [facility] [id number] Luis FINNEY 01/30/2018 01/30/2018 [facility] Pricila Rico Same Day Office Visit [id number] Fredi Mabry MD 01/30/2018 01/30/2018 [facility] [place] [facility] [id number] Lucas Hernandezlyaria 02/26/2018 02/27/2018 [facility] [place] [facility] Day Surgery [id number] Germán Alonso 04/27/2018 04/27/2018 [facility] [place] OP Therapy Patients [id number] Germán Alonso 05/22/2018 06/21/2018 [facility] [place] [facility] [place] [facility] Therapy Patients [id number] Germán Alonso 07/09/2018 08/08/2018 [facility] [place] Procedures Procedure Code Date Perfomer Comments Source Bilateral tubal ligation [id number] [facility] [id number] [facility] Bilateral tubal ligation [id number] [facility] [place] Cholecystectomy [id number] [facility] [place] Bilateral tubal ligation [id number] [facility] [place] Cholecystectomy [id number] [facility] [place] Bilateral tubal ligation [id number] [facility] Cholecystectomy [id number] [facility] Bilateral tubal ligation [id number] [facility] Cholecystectomy [id number] [facility] Assessment and Plan No Data Provided for This Section Plan of Care Plan of Care Date Source IMM Influenza Seasonal Feb to July (>/=19 yrs) 02/16/2019 [facility] Upcoming EncountersDateTypeSpecialtyCare TeamDescription 02/23/2018 Office Visit Family [facility] Brendon Pan [id number] [place], [place] [phone] (Fax) FOLLOW UP APPT FROM SAME DAY CLINIC... Health MaintenanceDue DateLast DoneComments Cervical Cancer Scrn (3 Yrs) 1986 Breast Cancer Scrn (Yearly) 2005 Colorectal Cancer Scrn Annual (FIT/FOBT) Age 50 to 75 2015 IMM Influenza Seasonal Feb to July (>/=19 yrs) 02/16/2018 02/20/2018 [facility] IMM Influenza Seasonal Feb to July (>/=19 yrs) 02/16/2018 [facility] Colorectal Cancer Scrn Annual (FIT/FOBT) Age 50 to 75 2015 [facility] Breast Cancer Scrn (Yearly) 2005 [facility] Cervical Cancer Scrn (3 Yrs) 1986 [facility] Social History Social History Date Source Social History TypeResponse Alcohol Past, Alcohol use interferes with work or home: No. Smoking Status Never smoker; Previous treatment: None; Ready to change: No; Concerns about tobacco use in household: No; Exposure to Tobacco Smoke None; Cigarette Smoking Last 365 Days No; Reg Smoking Cessation Counseling No entered on: 04/27/18 04/27/2018 XI Swenson Social History TypeResponse Alcohol Past, Alcohol use interferes with work or home: No. Smoking Status Never smoker; Previous treatment: None; Ready to change: No; Concerns about tobacco use in household: No; Exposure to Tobacco Smoke None; Cigarette Smoking Last 365 Days No; Reg Smoking Cessation Counseling No entered on: 04/27/18 04/27/2018 ALICIA Swenson Social History TypeResponse Alcohol Past, Alcohol use interferes with work or home: No. Smoking Status Never smoker; Previous treatment: None; Ready to change: No; Concerns about tobacco use in household: No; Exposure to Tobacco Smoke None; Cigarette Smoking Last 365 Days No; Reg Smoking Cessation Counseling No entered on: 04/27/18 04/27/2018 [facility] Tobacco UseTypesPacks/DayYears UsedDate Never Smoker Smokeless Tobacco: Never Used Sex Assigned at BirthDate Recorded Not on file Job Start DateOccupationIndustry Not on file Not on file Not on file Travel HistoryTravel StartTravel End No recent travel history available. 01/30/2018 [facility] Social History TypeResponse Smoking Status Never smoker; Ready to change: No; Concerns about tobacco use in household: No; Exposure to Tobacco Smoke None; Cigarette Smoking Last 365 Days No; Reg Smoking Cessation Counseling No 04/13/2017 [facility] Social History TypeResponse Smoking Status Never smoker; Ready to change: No; Concerns about tobacco use in household: No; Exposure to Tobacco Smoke None; Cigarette Smoking Last 365 Days No; Reg Smoking Cessation Counseling No 04/13/2017 [facility] Family History No Data Provided for This Section Advance Directives No Data Provided for This Section Functional Status No Data Provided for This Section
--- OUTSIDE RECORDS SUMMARY | 2018-12-07 14:31 | XMS REPORT | Clinical Summary ---
Author Author [facility] Organization [facility] Address Unknown Phone Unavailable Care Team Providers Care Well Service Derrick Worker Name Role Phone PCP Unavailable Allergies No Known Allergies Medications End Date Status Medication Sig Dispensed Refills Start Date Active indomethacin (INDOCIN) 50 Take 1 20 capsule 0 mg capsuleIndications: capsule by 8 Acute pain of left knee mouth 2 times daily as needed for Pain. Status Hospital, Clinic, or Ordered Dose Route Frequency Start End Date Other Facility Date Administered Medication Ended ketorolac (TORADOL) 60 60 mg IM ONCE 01/31/20 mg/2 mL injection 60 mg 18 8 Active Problems No known active problems Encounters Care Team Description Date Type Specialty Fredi Mabry MD Acute pain of left knee (Primary Dx) 01/30/2018 Office Visit Family Practice Luis Meek PA 01/30/2018 Emergency Emergency Medicine after 12/06/2017 Social History Date Tobacco Use Types Packs/Day Years Used Never Smoker Smokeless Tobacco: Never Used Sex Assigned at Date Recorded Not on file Industry Job Start Date Occupation Not on file Not on file Not on file Travel End Travel History Travel Start No recent travel history available. Last Filed Vital Signs Reading Time Taken Comments Vital Sign 144/65 01/30/2018 11:38 AM CDT Blood Pressure 73 01/30/2018 11:38 AM CDT Pulse 36.6 C (97.9 F) 01/30/2018 11:38 AM CDT Temperature 16 01/30/2018 11:38 AM CDT Respiratory Rate 98% 01/30/2018 9:16 AM CDT Oxygen Saturation - - Inhaled Oxygen Concentration 72.3 kg (159 lb 6.4 oz) 01/30/2018 11:38 AM CDT Weight 152.4 cm (5') 01/30/2018 11:38 AM CDT Height 31.13 01/30/2018 11:38 AM CDT Body Mass Index Plan of Treatment Health Maintenance Due Date Last Done Comments Cervical Cancer Scrn (3 1986 Yrs) Breast Cancer Scrn 2005 (Yearly) Colorectal Cancer Scrn 2015 Annual (FIT/FOBT) Age 50 to 75 IMM Influenza Seasonal 02/16/2019Feb to July (>/=19 yrs) Results Not on fileafter 12/06/2017 Insurance Type Payer Benefit Subscriber ID Effective Phone Address Plan / Dates Group [facility] xxxxxxxxx 2017-P [phone] [id number] [place] [address]
--- OUTSIDE RECORDS SUMMARY | 2018-12-07 14:32 | XMS REPORT | Clinical Summary ---
Author Author [facility] Organization [facility] Address Unknown Phone Unavailable Care Team Providers Care Reflow Operator Name Role Phone PCP Unavailable Allergies No [...] Meek PA 01/30/2018 Emergency Emergency Medicine after 04/22/2017 Social History Date Tobacco Use Types Packs/Day Years Used Never Smoker Smokeless Tobacco: Never Used Sex Assigned at Date Recorded Not on file Industry Job Start Date Occupation Not on file Not on file Not on file Travel End Travel History Travel Start No recent travel history available. Last Filed Vital Signs Time Taken Vital Sign Reading 01/30/2018 11:38 AM CDT Blood Pressure 144/65 01/30/2018 11:38 AM CDT Pulse 73 01/30/2018 11:38 AM CDT Temperature 36.6 C (97.9 F) 01/30/2018 11:38 AM CDT Respiratory Rate 16 01/30/2018 9:16 AM CDT Oxygen Saturation 98% - Inhaled Oxygen - Concentration 01/30/2018 11:38 AM CDT Weight 72.3 kg (159 lb 6.4 oz) 01/30/2018 11:38 AM CDT Height 152.4 cm (5') 01/30/2018 11:38 AM CDT Body Mass Index 31.13 Plan of Treatment Health Maintenance Due Date Last Done Comments Cervical Cancer Scrn (3 1986 Yrs) Breast Cancer Scrn 2005 (Yearly) Colorectal Cancer Scrn 2015 Annual (FIT/FOBT) Age 50 to 75 IMM Influenza Seasonal 02/16/2018Feb to July (>/=19 yrs) Results Not on fileafter 04/22/2017 Insurance Type Payer Benefit Subscriber ID Effective Phone Address Plan / Dates Group [facility] [employer] xxxxxxxxx 2017-P [phone] [id number] [place] [address]
--- OUTSIDE RECORDS SUMMARY | 2018-12-07 14:32 | XMS REPORT | Summary of Care ---
Author Organization Unknown Address Unknown Phone Unavailable Encounter DAJA Brown(ALANIS) [id number] Date(s): 11/03/14 - 11/03/14 [facility] [address] [place] [address]- Discharge Diagnosis: Chest pain Discharge Diagnosis: Cough Discharge Disposition: Home Physician Attending: Yesenia Oliva MD Vital Signs 1 2 3 Most recent to oldest [Reference Range]: 98.2 DegF (11/03/14 1:15 PM) 98 DegF (11/03/14 10:15 AM) Temperature Oral [96.4-99.1 DegF] 144/89 mmHg *HI* (11/03/14 1:15 PM) 156/98 mmHg *HI* (11/03/14 10:15 AM) Blood Pressure [90-140/60-90 mmHg] 16 BRMIN (11/03/14 1:15 PM) 20 BRMIN (11/03/14 10:47 AM) 16 BRMIN (11/03/14 10:15 AM) Respiratory Rate [14-20 BRMIN] 77 bpm (11/03/14 1:15 PM) 84 bpm (11/03/14 10:15 AM) Peripheral Pulse Rate [60-100 bpm] 78.182 kg (11/03/14 10:15 AM) Weight Problem List Condition Effective Dates Status Health Status Informant Bronchitis(Confirmed Resolved ) Cholecystitis(Confir Resolved med) Allergies, Adverse Reactions, Alerts Substance Reaction Severity Status NKDA Active Medications albuterol 90 mcg/inh inhalation aerosol 2 puff, INHALATION, QID, PRN for wheezing, # 25 gm, 0 Refill(s) Start Date: 11/03/14 Status: Ordered dexamethasone 10 mg, Route: IM, ONCE, Dosing Weight 78.182, kg, Priority: STAT, Start date: 10:42:00, Stop date: 11/03/14 10:42:00 Start Date: 11/03/14 Stop Date: 11/03/14 Status: Completed DuoNeb inhalation solution 3 ml, Route: INHALATION, Drug Form: SOLN, Dosing Weight 78.182, kg, PRN, PRN Res piratory Protocol, Start date: 11/03/14 10:28:00, Duration: 30 day, Stop date: 0 12/03/14 10:27:00 Notes: (Same as: Duoneb) Start Date: 11/03/14 Stop Date: 11/03/14 Status: Discontinued homatropine-hydrocodone 1.5 mg-5 mg/5 mL oral syrup 5 mL, Route: PO, Dosing Weight 78.182, kg, Q4H, Start date: 11/03/14 12:00:00, D uration: 30 day, Stop date: 12/03/14 8:00:00 Start Date: 11/03/14 Stop Date: 11/03/14 Status: Canceled Hycodan oral syrup 5 mL, Route: PO, Dosing Weight 78.182, kg, Q4H, Start date: 11/03/14 12:00:00, D uration: 30 day, Stop date: 12/03/14 8:00:00 Start Date: 11/03/14 Stop Date: 11/03/14 Status: Canceled Hycodan oral syrup 5 mL, Route: PO, Dosing Weight 78.182, kg, ONCE, Start date: 11/03/14 11:02:00, Stop date: 11/03/14 11:02:00 Start Date: 11/03/14 Stop Date: 11/03/14 Status: Completed Hycodan oral syrup 5 ml, PO, Q4H, PRN for cough, X 14 day, # 420 mL, 0 Refill(s) Start Date: 11/03/14 Stop Date: 11/17/14 Status: Ordered predniSONE 20 mg oral tablet 60 mg=3 tab, PO, Daily, Take 3 tablets for 60 mg dose, X 3 day, # 9 tab, 0 Refil l(s) Special Instructions: Take 3 tablets for 60 mg dose Start Date: 11/03/14 Stop Date: 11/06/14 Status: Ordered Results No data available for this section Immunizations No data available for this section Procedures Procedure Date Related Diagnosis Body Site Bilateral tubal ligation Cholecystectomy Social History Social History Type Response Smoking Status Never smoker; Ready to change: No; Concerns about tobacco use in household: No; Exposure to Tobacco Smoke None; Cigarette Smoking Last 365 Days No; Reg Smoking Cessation Counseling No Assessment and Plan No data available for this section
--- OUTSIDE RECORDS SUMMARY | 2018-12-07 14:32 | XMS REPORT | Clinical Summary ---
Author Author [facility] Organization [facility] Address Unknown Phone Unavailable Care Team Providers Care Manager Acquisition Name Role Phone PCP Unavailable Allergies No Known Allergies Current Medications Prescription Sig. Disp. Refills Start End Date Status Date indomethacin (INDOCIN) 50 Take 1 capsule by mouth 2 20 capsule 0 01/31/20 Active mg capsuleIndications: times daily as needed for 18 Acute pain of left knee Pain. Hospital, Clinic, or Ordered Dose Route Frequency Start End Date Status Other Facility Date Administered Medication ketorolac (TORADOL) 60 60 mg IM ONCE 01/31/20 01/31/20 Ended mg/2 mL injection 60 mg 18 18 Active Problems No known active problems Encounters Date Type Specialty Care Team Description 01/30/2018 Office Visit Family Practice Fredi Mabry MD Acute pain of left knee (Primary Dx) 01/30/2018 Emergency Emergency Medicine Luis Meek PA after 04/15/2017 Social History Tobacco Use Types Packs/Day Years Used Date Never Smoker Smokeless Tobacco: Never Used Sex Assigned at Date Recorded Not on file Last Filed Vital Signs Vital Sign Reading Time Taken Blood Pressure 144/65 01/30/2018 11:38 AM CDT Pulse 73 01/30/2018 11:38 AM CDT Temperature 36.6 C (97.9 F) 01/30/2018 11:38 AM CDT Respiratory Rate 16 01/30/2018 11:38 AM CDT Oxygen Saturation 98% 01/30/2018 9:16 AM CDT Inhaled Oxygen - - Concentration Weight 72.3 kg (159 lb 6.4 oz) 01/30/2018 11:38 AM CDT Height 152.4 cm (5') 01/30/2018 11:38 AM CDT Body Mass Index 31.13 01/30/2018 11:38 AM CDT Plan of Treatment Health Maintenance Due Date Last Done Comments Cervical Cancer Scrn (3 1986 Yrs) Breast Cancer Scrn 2005 (Yearly) Colorectal Cancer Scrn 2015 Annual (FIT/FOBT) Age 50 to 75 IMM Influenza Seasonal 02/16/2018Feb to July (>/=19 yrs) Results Not on fileafter 04/15/2017
--- OUTSIDE RECORDS SUMMARY | 2018-12-07 14:32 | XMS REPORT | Summary of Care ---
Author Author [facility] Organization [facility] Address Unknown Phone Unavailable Encounter DAJA Brown(ALANIS) [id number] Date(s): 11/24/16 - 11/24/16 [facility] [address] [place] [address]- [phone] Discharge Diagnosis: Viral URI Discharge Disposition: Home or Self Care Attending Physician: Yakov Zamorano MD Vital Signs 1 2 3 Most recent to oldest [Reference Range]: 154.94 cm (11/24/16 2:04 AM) Height 98 DegF (11/24/16 7:00 AM) 98.4 DegF (11/24/16 4:05 AM) 98.5 DegF (11/24/16 2:04 AM) Temperature Oral [96.4-99.1 DegF] 139/78 mmHg (11/24/16 7:11 AM) 130/70 mmHg (11/24/16 7:00 AM) 126/78 mmHg (11/24/16 6:05 AM) Blood Pressure [90-140/60-90 mmHg] 18 BRMIN (11/24/16 7:11 AM) 17 BRMIN (11/24/16 7:00 AM) 20 BRMIN (11/24/16 6:05 AM) Respiratory Rate [14-20 BRMIN] 88 bpm (11/24/16 5:05 AM) 79 bpm (11/24/16 4:05 AM) 94 bpm (11/24/16 2:04 AM) Peripheral Pulse Rate [60-100 bpm] 77.273 kg (11/24/16 2:04 AM) Weight 32.19 m2 (11/24/16 2:04 AM) Body Mass Index Problem List Condition Effective Dates Status Health Status Informant Bronchitis(Confirmed Resolved ) Cholecystitis(Confir Resolved med) Allergies, Adverse Reactions, Alerts Substance Reaction Severity Status NKDA Active Medications albuterol 0.083% inhalation solution 2.49 mg=3 mL, NEB, Q6H, PRN as needed for shortness of breath, # 120 ea, 3 Refil l(s) Start Date: 11/24/16 Stop Date: 03/24/17 Status: Ordered dexamethasone 10 mg, Route: IVP, ONCE, Dosing Weight 77.273, kg, Priority: STAT, Start date: 0 11/24/16 5:57:00 CDT, Stop date: 11/24/16 5:57:00 CDT Start Date: 11/24/16 Stop Date: 11/24/16 Status: Completed GI cocktail 30 mL, Route: PO, Drug Form: SUSP, Dosing Weight 77.273, kg, ONCE, STAT, Start d ate: 11/24/16 5:57:00 CDT, Stop date: 11/24/16 5:57:00 CDT Notes: G.I. Cocktail=antacid with simethicone 22.5 mL - lidocaine viscous 7.5 mL Start Date: 11/24/16 Stop Date: 11/24/16 Status: Completed Saline Flush 0.9% 10 mL, Route: IVP, Drug Form: INJ, Dosing Weight 77.273, kg, PRN, PRN Line Flush , Start date: 11/24/16 4:11:00 CDT, Duration: 30 day, Stop date: 12/24/16 4:10:0 0 CDT Notes: (Same as: BD Posiflush) Start Date: 11/24/16 Stop Date: 11/24/16 Status: Discontinued Tylenol with Codeine #3 oral tablet 1 - 2 tab, PO, Q6H, PRN Pain, X 4 day, # 24 tab, 0 Refill(s) Start Date: 11/24/16 Stop Date: 11/24/16 Status: Discontinued Results ELECTROLYTES Most recent to 1 oldest [Reference Range]: Sodium Lvl [135-145 138 mEq/L mEq/L] (11/24/16 4:32 AM) Potassium Lvl 3.5 mEq/L [3.5-5.1 mEq/L] (11/24/16 4:32 AM) Chloride Lvl [95-109 104 mEq/L mEq/L] (11/24/16 4:32 AM) CO2 [24-32 mEq/L] 27 mEq/L (11/24/16 4:32 AM) AGAP [10.0-20.0 10.5 mEq/L mEq/L] (11/24/16 4:32 AM) CHEM PANEL Most recent to 1 oldest [Reference Range]: Creatinine Lvl 0.69 mg/dL [0.50-1.40 mg/dL] (11/24/16 4:32 AM) eGFR 101 mL/min/1.73m2 1 *NA* (11/24/16 4:32 AM) BUN [7-22 mg/dL] 12 mg/dL (11/24/16 4:32 AM) B/C Ratio [6-25] 17 (11/24/16 4:32 AM) Glucose Lvl [70-99 93 mg/dL mg/dL] (11/24/16 4:32 AM) Total Protein 7.3 g/dL [6.4-8.4 g/dL] (11/24/16 4:32 AM) Albumin Lvl [3.5-5.0 3.4 g/dL g/dL] *LOW* (11/24/16 4:32 AM) Globulin [2.7-4.2 3.9 g/dL g/dL] (11/24/16 4:32 AM) A/G Ratio [0.7-1.6] 0.9 (11/24/16 4:32 AM) Calcium Lvl 8.9 mg/dL [8.5-10.5 mg/dL] (11/24/16 4:32 AM) ALT [0-65 unit/L] 16 unit/L (11/24/16 4:32 AM) AST [0-37 unit/L] 17 unit/L (11/24/16 4:32 AM) Alk Phos [39-136 87 unit/L unit/L] (11/24/16 4:32 AM) Bili Total [0.2-1.3 0.4 mg/dL mg/dL] (11/24/16 4:32 AM) 1Result Comment: The eGFR is calculated using the [...] from the National Kidney Disease Education Program ( NKDEP) which additionally recommends that when the eGFR is used in patients with extremes of body mass index for purposes of drug dosing, the eGFR should be mul tiplied by the estimated BMI. CARDIAC ENZYMES Most recent to 1 oldest [Reference Range]: Total CK [12-191 149 unit/L unit/L] (11/24/16 4:32 AM) CK MB [0.5-3.6 0.9 ng/mL ng/mL] (11/24/16 4:32 AM) CK MB Index 0.6 [0.0-2.5] (11/24/16 4:32 AM) Troponin-I <0.02 ng/mL [0.00-0.40 ng/mL] (11/24/16 4:32 AM) BNP [<=100 pg/mL] 7 pg/mL (11/24/16 4:32 AM) ENDOCRINOLOGY Most recent to 1 oldest [Reference Range]: S Preg [Negative] Negative *NA* (11/24/16 4:32 AM) HEMATOLOGY Most recent to 1 oldest [Reference Range]: WBC [3.7-10.4 K/CMM] 7.0 K/CMM (11/24/16 4:32 AM) RBC [4.20-5.40 3.85 M/CMM M/CMM] *LOW* (11/24/16 4:32 AM) Hgb [12.0-16.0 g/dL] 9.4 g/dL *LOW* (11/24/16 4:32 AM) Hct [36.0-48.0 %] 29.3 % *LOW* (11/24/16 4:32 AM) MCV [80.0-98.0 fL] 76.2 fL *LOW* (11/24/16 4:32 AM) MCH [27.0-31.0 pg] 24.4 pg *LOW* (11/24/16 4:32 AM) MCHC [32.0-36.0 32.0 g/dL g/dL] (11/24/16 4:32 AM) RDW [11.5-14.5 %] 16.8 % *HI* (11/24/16 4:32 AM) Platelet [133-450 360 K/CMM K/CMM] (11/24/16 4:32 AM) MPV [7.4-10.4 fL] 8.0 fL (11/24/16 4:32 AM) Segs [45.0-75.0 %] 69.3 % (11/24/16 4:32 AM) Lymphocytes 16.8 % [20.0-40.0 %] *LOW* (11/24/16 4:32 AM) Monocytes [2.0-12.0 7.9 % %] (11/24/16 4:32 AM) Eosinophils [0.0-4.0 5.1 % %] *HI* (11/24/16 4:32 AM) Basophils [0.0-1.0 0.9 % %] (11/24/16 4:32 AM) Segs-Bands # 4.9 K/CMM [1.5-8.1 K/CMM] (11/24/16 4:32 AM) Lymphocytes # 1.2 K/CMM [1.0-5.5 K/CMM] (11/24/16 4:32 AM) Monocytes # [0.0-0.8 0.6 K/CMM K/CMM] (11/24/16 4:32 AM) Eosinophils # 0.4 K/CMM [0.0-0.5 K/CMM] (11/24/16 4:32 AM) Basophils # [0.0-0.2 0.1 K/CMM K/CMM] (11/24/16 4:32 AM) Microcyte [None 1+ Seen] *ABN* (11/24/16 4:32 AM) PT [12.0-14.7 14.2 seconds seconds] (11/24/16 4:32 AM) INR [0.85-1.17] 1.08 (11/24/16 4:32 AM) PTT [22.9-35.8 33.0 seconds seconds] (11/24/16 4:32 AM) RAPID Most recent to 1 oldest [Reference Range]: Grp A Strep Scr Negative [Negative] (11/24/16 4:36 AM) Immunizations No data available for this section [...]
--- OUTSIDE RECORDS SUMMARY | 2018-12-07 14:32 | XMS REPORT | Clinical Summary ---
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
--- OUTSIDE RECORDS SUMMARY | 2018-12-07 14:32 | XMS REPORT | Clinical Summary ---
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
--- OUTSIDE RECORDS SUMMARY | 2018-12-07 14:32 | XMS REPORT | Summary of Care ---
Author Author [facility] Organization [facility] Address Unknown Phone Unavailable Encounter HQ Kevin(FIN) [id number] Date(s): 04/27/18 - 04/27/18 [facility] [address] [place] [address]- [facility] [phone] Encounter Diagnosis Villonodular synovitis (pigmented), left knee (Final) - 06/03/18 Other tear of lateral meniscus, current injury, left knee, initial encounter (Final) - Chondromalacia patellae, left knee (Final) - Unspecified urinary incontinence (Final) - residential (current) use of antibiotics (Final) - Exposure to other specified factors, initial encounter (Final) - Discharge Disposition: Home or Self Care Attending Physician: Germán Gupta MD Referring Physician: Germán Gupta MD Vital Signs 1 2 3 Most recent to oldest [Reference Range]: 154.94 cm (04/16/18 9:20 AM) Height 98.1 DegF (04/16/18 9:24 AM) Temperature Oral [96.4-99.1 DegF] 155/75 mmHg *HI* (04/27/18 3:45 PM) 155/75 mmHg *HI* (04/27/18 3:30 PM) 157/77 mmHg *HI* (04/27/18 3:15 PM) Blood Pressure [90-140/60-90 mmHg] 16 BRMIN (04/27/18 3:45 PM) 17 BRMIN (04/27/18 3:30 PM) 15 BRMIN (04/27/18 3:15 PM) Respiratory Rate [14-20 BRMIN] 64 bpm (04/16/18 9:24 AM) Peripheral Pulse Rate [60-100 bpm] 73.636 kg (04/16/18 9:20 AM) Weight 30.67 m2 (04/16/18 9:20 AM) Body Mass Index Problem List Condition Effective Dates Status Health Status Informant Bronchitis(Confirmed Resolved ) Cholecystitis(Confir Resolved med) Effusion, left Active knee(Confirmed) Allergies, Adverse Reactions, Alerts No Known Medication Allergies Medications acetaminophen (ANES) Route: IV, Drug form: INJ, ONCE, Stop date: 04/27/18 14:17:00 [employer] Start Date: 04/27/18 Stop Date: 04/27/18 Status: Completed acetaminophen-hydrocodone 325 mg-10 mg oral tablet 1 tab, Route: PO, Drug Form: TAB, Dosing Weight 73.636, kg, Q4H, PRN Pain Score 4-6, Start date: 04/27/18 15:03:00 [employer], Duration: 30 day, Stop date: 05/27/18 15 :02:00 [employer] Notes: Do not exceed 4gm/day of acetaminophen. (Same as: [place] 325/10) Start Date: 04/27/18 Stop Date: 04/27/18 Status: Discontinued amoxicillin 500 mg oral capsule 500 mg=1 cap, PO, TID, 0 Refill(s) Start Date: 04/16/18 Status: Ordered ANES acetaminophen 1,000 mg, 100 mL, Route: IVPB, Drug form: INJ, ONCE, Dosing Weight 73.636, kg, P RN Pain Score 1-3, Start date: 04/26/18 8:11:00 [employer] Notes: Infuse over 15 minutesDo not exceed 4gm/day of acetaminophen MEDICAT ION WASTE Product Size: 1000 mgProduct Wasted: ___ mg Start Date: 04/26/18 Stop Date: 04/27/18 Status: Discontinued ANES albuterol 0.083% inhalation solution 2.49 mg, 3 mL, Route: NEB, Drug form: SOLN, Q20Min, Dosing Weight 73.636, kg, TX N Wheezing, Priority: STAT, Start date: 04/26/18 8:11:00 [employer], Duration: 30 day, Stop date: 05/26/18 8:10:00 [employer] Notes: SEE RT DOCUMENTATION (Same as: Martina) Start Date: 04/26/18 Stop Date: 04/27/18 Status: Discontinued ANES diphenhydrAMINE 12.5 mg, 0.25 mL, Route: IVP, Drug form: INJ, Q6H, Dosing Weight 73.636, kg, PRN Itching, Start date: 04/26/18 8:11:00 [employer], Duration: 30 day, Stop date: 05/26/18 8:10:00 [employer] Notes: (Same as: Benadryl) Start Date: 04/26/18 Stop Date: 04/27/18 Status: Discontinued ANES esmolol 10 mg, 1 mL, Route: IVP, Drug form: INJ, Q5Min, Dosing Weight 73.636, kg, PRN Ot her -See Comment, Start date: 04/26/18 8:11:00 [employer], Duration: 5 doses or times, Stop date: Limited # of times Notes: (Same as: Brevibloc) Start Date: 04/26/18 Stop Date: 04/27/18 Status: Discontinued ANES fentaNYL 50 microgram, 1 mL, Route: IVP, Drug form: INJ, Q5Min, Dosing Weight 73.636, kg, PRN Pain Score 7-10, Priority: Routine, Start date: 04/26/18 8:11:00 [employer], Durat ion: 2 doses or times, Stop date: Limited # of times Notes: (Same as: Sublimaze) Preservative free. Start Date: 04/26/18 Stop Date: 04/27/18 Status: Discontinued ANES fentaNYL 25 microgram, 0.5 mL, Route: IVP, Drug form: INJ, Q5Min, Dosing Weight 73.636, k g, PRN Pain Score 4-6, Priority: Routine, Start date: 04/26/18 8:11:00 [employer], Dura tion: 4 doses or times, Stop date: Limited # of times Notes: (Same as: Sublimaze) Preservative free. Start Date: 04/26/18 Stop Date: 04/27/18 Status: Discontinued ANES flumazenil 0.2 mg, 2 mL, Route: IVP, Drug form: INJ, PRN, Dosing Weight 73.636, kg, PRN Fernie zodiazepine Reversal, Initial dose, Start date: 04/26/18 8:11:00 [employer], Duration: 30 day, Stop date: 05/26/18 8:10:00 [employer] Notes: (Same as: Romazicon) Start Date: 04/26/18 Stop Date: 04/27/18 Status: Discontinued ANES hydrALAZINE 10 mg, 0.5 mL, Route: IVP, Drug form: INJ, Q20Min, Dosing Weight 73.636, kg, PRN Elevated BP, Start date: 04/26/18 8:11:00 [employer], Duration: 2 doses or times, Stop date: Limited # of times Notes: (Same as: Apresoline)Push over 5 minutes Start Date: 04/26/18 Stop Date: 04/27/18 Status: Discontinued ANES HYDROmorphone 0.5 mg, 0.5 mL, Route: IVP, Drug form: INJ, Q5Min, Dosing Weight 73.636, kg, PRN Pain Score 7-10, Start date: 04/26/18 8:11:00 [employer], Duration: 4 doses or times, Stop date: Limited # of times Notes: Same as: Dilaudid Start Date: 04/26/18 Stop Date: 04/27/18 Status: Discontinued ANES ketOROLAC 30 mg, 1 mL, Route: IVP, Drug form: INJ, ONCE, Dosing Weight 73.636, kg, Start d ate: 04/26/18 8:11:00 [employer], Stop date: 04/26/18 8:11:00 [employer] Notes: (Same as:Toradol) IV bolus must be given >15 seconds. Give IM administration slowly and deeply into the muscle.Not for use > 4 days MEDICATION WASTE Product Size: 30 mgProduct Wasted: ___ mg Start Date: 04/26/18 Stop Date: 04/27/18 Status: Discontinued ANES labetalol 10 mg, 2 mL, Route: IVP, Drug form: INJ, Q5Min, Dosing Weight 73.636, kg, PRN El evated BP, Start date: 04/26/18 8:11:00 [employer], Duration: 5 doses or times, Stop da te: Limited # of times Notes: (Same as: Normodyne, Trandate)Push over 2 minutes Give bolus over 2-3 mi nutes. Start Date: 04/26/18 Stop Date: 04/27/18 Status: Discontinued ANES meperidine 12.5 mg, 0.5 mL, Route: IVP, Drug form: INJ, Q30Min, Dosing Weight 73.636, kg, P RN Other -See Comment, For shivering, Start date: 04/26/18 8:11:00 [employer], Duration : 2 doses or times, Stop date: Limited # of times Notes: (Same as: Demerol) "Use Precaution in Elderly, Seizure disorders, and Re nal impairment" Start Date: 04/26/18 Stop Date: 04/27/18 Status: Discontinued ANES morphine Sulfate 4 mg, 1 mL, Route: IVP, Drug form: SOLN, Q5Min, Dosing Weight 73.636, kg, PRN Pa in Score 7-10, Start date: 04/26/18 8:11:00 [employer], Duration: 3 doses or times, Sto p date: Limited # of times Notes: (Same as:MORPhine Sulfate) Start Date: 04/26/18 Stop Date: 04/27/18 Status: Discontinued ANES morphine Sulfate 2 mg, 1 mL, Route: IVP, Drug form: SOLN, Q5Min, Dosing Weight 73.636, kg, PRN Pa in Score 4-6, Start date: 04/26/18 8:11:00 [employer], Duration: 5 doses or times, Stop date: Limited # of times Start Date: 04/26/18 Stop Date: 04/27/18 Status: Discontinued ANES naloxone 0.1 mg, 0.25 mL, Route: SUB-Q, Drug form: INJ, Q6H, Dosing Weight 73.636, kg, TX N Itching, Start date: 04/26/18 8:11:00 [employer], Duration: 30 day, Stop date: 8:10:00 [employer] Notes: Same as Narcan Start Date: 04/26/18 Stop Date: 04/27/18 Status: Discontinued ANES naloxone 0.4 mg, 1 mL, Route: IVP, Drug form: INJ, Q2MIN, Dosing Weight 73.636, kg, PRN N arcotic Reversal, Start date: 04/26/18 8:11:00 [employer], Duration: 8 doses or times, Stop date: Limited # of times Notes: Same as Narcan Start Date: 04/26/18 Stop Date: 04/27/18 Status: Discontinued ANES ondansetron 4 mg, 2 mL, Route: IVP, Drug form: INJ, ONCE, Dosing Weight 73.636, kg, PRN Naus ea & Vomiting, Start date: 04/26/18 8:11:00 [employer] Notes: (Same as: Mandeep) MEDICATION WASTE Product Size: 4 mgProduct Was sy: ___ mg Start Date: 04/26/18 Stop Date: 04/27/18 Status: Completed ANES oxyCODONE 10 mg, 10 mL, Route: NG, Drug form: LIQ, Q4H, Dosing Weight 73.636, kg, PRN Pain Score 7-10, Start date: 04/26/18 8:11:00 [employer], Duration: 30 day, Stop date: 01/04 8:10:00 [employer] Notes: (Same as: 'Roxicodone) Start Date: 04/26/18 Stop Date: 04/27/18 Status: Discontinued ANES oxyCODONE 5 mg, 1 tab, Route: PO, Drug form: TAB, Q4H, Dosing Weight 73.636, kg, PRN Pain Score 4-6, Start date: 04/26/18 8:11:00 [employer], Duration: 30 day, Stop date: 8:10:00 [employer] Notes: (Same as: Roxicodone) Start Date: 04/26/18 Stop Date: 04/27/18 Status: Discontinued ceFAZolin (ANES) Route: IV, Drug form: INJ, ONCE, Stop date: 04/27/18 12:34:00 [employer] Start Date: 04/27/18 Stop Date: 04/27/18 Status: Completed ceFAZolin + Sodium Chloride 0.9% IV 100 mL 2 gm, Route: IVPB, ONCALL, Start date: 04/27/18 6:00:00 [employer], Duration: 1 doses o r times, Stop date: 04/27/18 12:00:00 [employer], ABX Indication: Surgical Prophylaxis Notes: (Same As: Susan Goldman) MEDICATION WASTE Product Size: 1000 mgP roduct Wasted: ___ mg Start Date: 04/27/18 Stop Date: 04/27/18 Status: Discontinued dexamethasone 4 mg, 1 mL, Route: IV, Drug form: INJ, ONCE, Dosing Weight 73.636, kg, Start eladia e: 04/27/18 15:22:00 [employer], Stop date: 04/27/18 15:22:00 [employer] Notes: Concentration: 4mg/ml Start Date: 04/27/18 Stop Date: 04/27/18 Status: Completed dexamethasone (ANES) Route: IV, Drug form: INJ, ONCE, Stop date: 04/27/18 12:34:00 [employer] Start Date: 04/27/18 Stop Date: 04/27/18 Status: Completed fentaNYL (ANES) Route: IV, Drug form: INJ, ONCE, Stop date: 04/27/18 12:34:00 [employer] Start Date: 04/27/18 Stop Date: 04/27/18 Status: Completed glycopyrrolate (ANES) Route: IV, Drug form: INJ, ONCE, Stop date: 04/27/18 14:17:00 [employer] Start Date: 04/27/18 Stop Date: 04/27/18 Status: Completed hydromorphone (ANES) Route: IV, Drug form: INJ, ONCE, Stop date: 04/27/18 12:59:00 [employer] Start Date: 04/27/18 Stop Date: 04/27/18 Status: Completed Lactated Ringers Injection IV (ANES) 1000 mL Route: IV, Total Volume: 1,000, Start date: 04/27/18 11:44:00 [employer], Stop date: 12:44:00 [employer] Start Date: 04/27/18 Stop Date: 04/27/18 Status: Completed Lactated Ringers Injection IV 1,000 mL 1,000 mL, Rate: 25 ml/hr, Infuse over: 40 hr, Route: IV, Dosing Weight 73.636 kg , Total Volume: 1,000, Start date: 04/27/18 7:54:00 [employer], Duration: 30 day, Stop date: 05/27/18 7:53:00 [employer], 1.81, m2 Start Date: 04/27/18 Stop Date: 04/27/18 Status: Discontinued lidocaine (ANES) Route: IV, Drug form: INJ, ONCE, Stop date: 04/27/18 12:34:00 [employer] Start Date: 04/27/18 Stop Date: 04/27/18 Status: Completed metoprolol (ANES) Route: IV, Drug form: INJ, ONCE, Stop date: 04/27/18 14:04:00 [employer] Start Date: 04/27/18 Stop Date: 04/27/18 Status: Completed midazolam (ANES) Route: IV, Drug form: SOLN, ONCE, Stop date: 04/27/18 12:19:00 [employer] Start Date: 04/27/18 Stop Date: 04/27/18 Status: Completed neostigmine (ANES) Route: IV, Drug form: INJ, ONCE, Stop date: 04/27/18 14:17:00 [employer] Start Date: 04/27/18 Stop Date: 04/27/18 Status: Completed ondansetron (ANES) Route: IV, Drug form: INJ, ONCE, Stop date: 04/27/18 12:34:00 [employer] Start Date: 04/27/18 Stop Date: 04/27/18 Status: Completed Phenergan 12.5 mg, 0.5 mL, Route: IM, Drug form: INJ, ONCE, Dosing Weight 73.636, kg, Star t date: 04/27/18 15:22:00 [employer], Stop date: 04/27/18 15:22:00 [employer] Notes: Do not give IV push. (Same as: Phenergan) Start Date: 04/27/18 Stop Date: 04/27/18 Status: Completed propofol (ANES) Route: IV, Drug form: INJ, ONCE, Stop date: 04/27/18 12:34:00 [employer] Start Date: 04/27/18 Stop Date: 04/27/18 Status: Completed rocuronium (ANES) Route: IV, Drug form: INJ, ONCE, Stop date: 04/27/18 14:14:00 [employer] Start Date: 04/27/18 Stop Date: 04/27/18 Status: Completed scopolamine 1.5 mg transdermal film 1 patch, Route: TOP, Drug Form: ERFILM, Dosing Weight 73.636, kg, ONCE, Start da te: 04/27/18 15:23:00 [employer], Stop date: 04/27/18 15:23:00 [employer] Notes: Change patch every 72 hours (Same as: Transderm-Scop) Start Date: 04/27/18 Stop Date: 04/27/18 Status: Completed tramadol 50 mg, 1 tab, Route: PO, Drug form: TAB, Q6H, Dosing Weight 73.636, kg, PRN Pain Score 1-3, Start date: 04/27/18 15:03:00 [employer], Duration: 30 day, Stop date: 02/04 15:02:00 [employer] Notes: Not to exceed 400mg/day. (Same As: Ultram) Start Date: 04/27/18 Stop Date: 04/27/18 Status: Discontinued vancomycin + Sodium Chloride 0.9% IV 250 mL 1,250 mg, Route: IV, ONCE, Dosing Weight 73.636, kg, Start date: 04/27/18 7:55:0 0 [employer], Stop date: 04/27/18 7:55:00 [employer], ABX Indication: Surgical Prophylaxis Notes: TIME CRITICAL MEDICATION(Same As: Vancocin)Infusion rate< 1000 mg: infuse over 1 [id number] - 1500 mg: infuse over 1.5 [id number] - 2000 mg: infuse over 2 hours> 2001 mg: infuse over 2.5 hoursFor adult patients only: Round to nearest 250 mg per Medical Staff approval MEDICATION WASTE Product Size: 1000 mgProduct Wasted: ___ mg Start Date: 04/27/18 Stop Date: 04/27/18 Status: Completed Results Most recent to 1 oldest [Reference Range]: U Preg [Negative] Negative (04/27/18 9:55 AM) Immunizations No data available for this section Procedures Procedure Date Related Diagnosis Body Site Status Bilateral tubal ligation Completed Cholecystectomy Completed Social History Social History Type Response Alcohol Past, Alcohol use interferes with work or home: No. Smoking Status Never smoker; Previous treatment: None; Ready to change: No; Concerns about tobacco use in household: No; Exposure to Tobacco Smoke None; Cigarette Smoking Last 365 Days No; Reg Smoking Cessation Counseling No entered on: 04/27/18 Assessment and Plan No data available for this section
--- OUTSIDE RECORDS SUMMARY | 2018-12-07 14:32 | XMS REPORT | Clinical Summary ---
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 CHOICE xxxxxxxxx 2017-P [phone] [id number] [place] [address]
--- OUTSIDE RECORDS SUMMARY | 2018-12-07 14:32 | XMS REPORT | Summary of Care ---
Author Author [facility] Organization [facility] Address Unknown Phone Unavailable Encounter DAJA Brown(ALANIS) [id number] Date(s): 11/05/15 - 11/05/15 [facility] [address] [place] [address]- [phone] Discharge Diagnosis: Pain Discharge Disposition: Home Attending Physician: Stephan Tan MD Vital Signs Most recent to 1 oldest [Reference Range]: Temperature Oral 97.7 DegF [96.4-99.1 DegF] (11/05/15 12:27 PM) Blood Pressure 128/78 mmHg [90-140/60-90 mmHg] (11/05/15 12:27 PM) Respiratory Rate 18 BRMIN [14-20 BRMIN] (11/05/15 12:27 PM) Peripheral Pulse 79 bpm Rate [60-100 bpm] (11/05/15 12:27 PM) Problem List Condition Effective Dates Status Health Status Informant Bronchitis(Confirmed Resolved ) Cholecystitis(Confir Resolved med) Allergies, Adverse Reactions, Alerts Substance Reaction Severity Status NKDA Active Medications Flexeril 5 mg oral tablet 5 mg=1 tab, PO, TID, X 7 day, # 21 tab, 0 Refill(s) Start Date: 11/05/15 Stop Date: 11/12/15 Status: Ordered ibuprofen 800 mg, Route: PO, Drug form: TAB, ONCE, Dosing Weight 78.182, kg, Priority: STA T, Start date: 11/05/15 12:43:00 CDT, Stop date: 11/05/15 12:43:00 CDT Start Date: 11/05/15 Stop Date: 11/05/15 Status: Completed Naprosyn 500 mg oral tablet 500 mg=1 tab, PO, BID, # 60 tab, 0 Refill(s) Start Date: 11/05/15 Status: Ordered Results No data available for [...]
--- OUTSIDE RECORDS SUMMARY | 2018-12-07 14:32 | XMS REPORT | Clinical Summary ---
Author Author [facility] Organization [facility] Address Unknown Phone Unavailable Care Team Providers Care Billboard Erector Name Role Phone PCP Unavailable Allergies No [...] Meek PA 01/30/2018 Emergency Emergency Medicine after 08/12/2017 Social History Date Tobacco Use Types Packs/Day [...] July (>/=19 yrs) Results Not on fileafter 08/12/2017 Insurance Type Payer Benefit Subscriber ID Effective Phone Address Plan / Dates Group [facility] CHOICE xxxxxxxxx 2017-P [phone] [id number] [place] [address]
--- OUTSIDE RECORDS SUMMARY | 2018-12-07 14:32 | XMS REPORT | Clinical Summary ---
Author Author [facility] Organization [facility] Address Unknown Phone Unavailable Care Team Providers Care Flatwork Tier Name Role Phone PCP Unavailable Allergies No [...] Meek PA 01/30/2018 Emergency Emergency Medicine after 07/19/2017 Social History Date Tobacco Use Types Packs/Day [...] July (>/=19 yrs) Results Not on fileafter 07/19/2017 Insurance Type Payer Benefit Subscriber ID Effective Phone Address Plan / Dates Group [facility] CHOICE xxxxxxxxx 2017-P [phone] [id number] [place] [address]
--- OUTSIDE RECORDS SUMMARY | 2018-12-07 14:32 | XMS REPORT | Clinical Summary ---
Author Author [facility] Organization [facility] Address Unknown Phone Unavailable Care Team Providers Care Materials Planner/Production Planner Name Role Phone PCP Unavailable Allergies No [...] Emergency Emergency Medicine Luis Meek PA after 04/13/2017 Social History Tobacco Use Types Packs/Day Years [...] July (>/=19 yrs) Results Not on fileafter 04/13/2017
--- OUTSIDE RECORDS SUMMARY | 2018-12-07 14:32 | XMS REPORT | Summary of Care ---
Author Author [facility] Organization [facility] Address Unknown Phone Unavailable Encounter HQ Kevin(FIN) [id number] Date(s): 02/26/18 - 02/26/18 [facility] [address] [place] [address] [facility] [phone] Encounter Diagnosis Pain in left knee (Final) - 03/03/18 Effusion, left knee (Final) - Pain in left wrist (Final) - Pain in right wrist (Final) - Localized edema (Final) - Discharge Disposition: Home or Self Care Attending Physician: Lucas Crenshaw MD Referring Physician: Lucas Crenshaw MD Vital Signs No data available for this section Problem List Condition Effective Dates Status Health Status Informant Bronchitis(Confirmed Resolved ) Cholecystitis(Confir Resolved med) Effusion, left Active knee(Confirmed) Allergies, Adverse Reactions, Alerts No Known Medication Allergies Medications No data available for this section Results No data available for this section [...]
--- OUTSIDE RECORDS SUMMARY | 2018-12-07 14:32 | XMS REPORT | Summary of Care ---
Author Organization Unknown Address Unknown Phone Unavailable Encounter HQ Kevin(ALANIS) [id number] Date(s): 06/20/14 - 06/20/14 [facility] [address] Discharge Diagnosis: Bronchitis Discharge Diagnosis: Pneumonia Discharge Disposition: Home Physician Attending: Yesenia Oliva MD Reason for Visit COUGH Vital Signs 1 2 3 Most recent to oldest [Reference Range]: 154.94 cm (06/20/14 3:57 AM) Height 98.3 DegF (06/20/14 5:46 AM) 98.1 DegF (06/20/14 3:57 AM) Temperature Oral [96.4-99.1 DegF] 138 mmHg (06/20/14 5:46 AM) 156 mmHg *HI* (06/20/14 5:22 AM) 170 mmHg *HI* (06/20/14 3:57 AM) Systolic Blood Pressure [90-140 mmHg] 99 mmHg *HI* (06/20/14 5:46 AM) 101 mmHg *HI* (06/20/14 5:22 AM) 94 mmHg *HI* (06/20/14 3:57 AM) Diastolic Blood Pressure [60-90 mmHg] 18 BRMIN (06/20/14 5:46 AM) 20 BRMIN (06/20/14 5:22 AM) 20 BRMIN (06/20/14 4:55 AM) Respiratory Rate [14-20 BRMIN] 87 bpm (06/20/14 5:46 AM) 108 bpm *HI* (06/20/14 5:22 AM) 18 bpm *LOW* (06/20/14 3:57 AM) Peripheral Pulse Rate [60-100 bpm] 78.182 kg (06/20/14 3:57 AM) Weight 32.57 m2 (06/20/14 3:57 AM) Body Mass Index Problem List Condition Effective Dates Status Health Status Informant Bronchitis(Confirmed Resolved ) Cholecystitis(Confir Resolved med) Allergies, Adverse Reactions, Alerts Substance Reaction Severity Status NKDA Active Medications albuterol 0.083% inhalation solution 2.49 mg, 3 mL, Route: NEB, Drug form: SOLN, Q15Min, Dosing Weight 78.182, kg, Pr iority: STAT, Start date: 06/20/14 4:47:00, Duration: 2 doses or times, Stop eladia e: 06/20/14 5:02:00 Notes: SEE RT DOCUMENTATION (Same as: Proventil) Start Date: 06/20/14 Stop Date: 06/20/14 Status: Completed albuterol CFC free 90 mcg/inh inhalation aerosol with adapter 2 puff, INHALATION, Q4H, for wheezing, # 9 gm, 0 Refill(s) Start Date: 06/20/14 Status: Ordered DuoNeb inhalation solution 3 ml, Route: INHALATION, Drug Form: SOLN, Dosing Weight 78.182, kg, PRN, PRN Res piratory Protocol, Start date: 06/20/14 4:46:00, Duration: 30 day, Stop date: 4:45:00 Notes: (Same as: Duoneb) Start Date: 06/20/14 Stop Date: 06/20/14 Status: Discontinued ketorolac 60 mg, Route: IM, Drug form: INJ, ONCE, Dosing Weight 78.182, kg, Priority: STAT , Start date: 06/20/14 4:46:00, Stop date: 06/20/14 4:46:00 Start Date: 06/20/14 Stop Date: 06/20/14 Status: Completed Levaquin 750 mg, 1 tab, Route: PO, Drug form: TAB, ONCE, Dosing Weight 78.182, kg, Start date: 06/20/14 4:47:00, Stop date: 06/20/14 4:47:00 Notes: Do not give w/antacids, dairy pdt & mineralsTake 1 hr before or 2 hr after dairy products Start Date: 06/20/14 Stop Date: 06/20/14 Status: Completed Levaquin 750 mg oral tablet 750 mg=1 tab, PO, Q24H, # 10 tab, 0 Refill(s) Start Date: 06/20/14 Stop Date: 06/30/14 Status: Ordered predniSONE 60 mg, Route: PO, Drug form: TAB, ONCE, Dosing Weight 78.182, kg, Priority: STAT , Start date: 06/20/14 4:47:00, Stop date: 06/20/14 4:47:00 Start Date: 06/20/14 Stop Date: 06/20/14 Status: Completed Medications Administered During Your Visit No data available for this section Immunizations No data available for this section Procedures Procedure Type Body Site Date of Procedure Related Diagnosis Bilateral tubal ligation Cholecystectomy Social History Social History Type Response Smoking Status Never smoker, Exposure to Tobacco Smoke None, Cigarette Smoking Last 365 Days No, Reg Smoking Cessation Counseling No
--- OUTSIDE RECORDS SUMMARY | 2018-12-07 14:32 | XMS REPORT | Clinical Summary ---
Author Author [facility] Organization [facility] Address Unknown Phone Unavailable Care Team Providers Care Export Manager Name Role Phone PCP Unavailable Allergies No [...] Meek PA 01/30/2018 Emergency Emergency Medicine after 11/04/2017 Social History Date Tobacco Use Types Packs/Day [...] July (>/=19 yrs) Results Not on fileafter 11/04/2017 Insurance Type Payer Benefit Subscriber ID Effective Phone Address Plan / Dates Group [facility] xxxxxxxxx 2017-P [phone] [id number] [place] [address]
--- OUTSIDE RECORDS SUMMARY | 2018-12-07 14:32 | XMS REPORT | Summary of Care ---
Author Author [facility] Organization [facility] Address Unknown Phone Unavailable Encounter DAJA Brown(ALANIS) [id number] Date(s): 04/11/17 - 04/11/17 [facility] [address] [place] [address]- Discharge Diagnosis: Pain and swelling of left knee Discharge Disposition: Home or Self Care Attending Physician: Caitlin Dexter MD Vital Signs Most recent to 1 2 oldest [Reference Range]: Height 154.94 cm (04/11/17 3:43 PM) Temperature Oral 98.1 DegF 97.3 DegF [96.4-99.1 DegF] (04/11/17 6:47 PM) (04/11/17 3:43 PM) Blood Pressure 122/81 mmHg 150/85 mmHg [90-140/60-90 mmHg] (04/11/17 6:47 PM) *HI* (04/11/17 3:43 PM) Respiratory Rate 17 BRMIN 18 BRMIN [14-20 BRMIN] (04/11/17 6:47 PM) (04/11/17 3:43 PM) Peripheral Pulse 100 bpm Rate [60-100 bpm] (04/11/17 3:43 PM) Weight 80 kg (04/11/17 3:43 PM) Body Mass Index 33.32 m2 (04/11/17 3:43 PM) Problem List Condition Effective Dates Status Health Status Informant Bronchitis(Confirmed Resolved ) Cholecystitis(Confir Resolved med) Effusion, left Active knee(Confirmed) Allergies, Adverse Reactions, Alerts Substance Reaction Severity Status NKDA Active Medications [place] 10/325 oral tablet 1 tab, Route: PO, Drug Form: TAB, Dosing Weight 80, kg, ONCE, STAT, Start date: 04/11/17 17:47:00 ORGANIZATIONAL EFFECTIVENESS CONSULTANT, Stop date: 04/11/17 17:47:00 ORGANIZATIONAL EFFECTIVENESS CONSULTANT Notes: Do not exceed 4gm/day of acetaminophen. (Same as: [place] 325/10) Start Date: 04/11/17 Stop Date: 04/11/17 Status: Completed Ultram 50 mg oral tablet 50 mg=1 tab, PO, Q4H, PRN pain, X 3 day, # 20 tab, 0 Refill(s) Start Date: 04/11/17 Stop Date: 04/14/17 Status: Ordered Results No data available for [...]
--- OUTSIDE RECORDS SUMMARY | 2018-12-07 14:32 | XMS REPORT | Clinical Summary ---
Author Author [facility] Organization [facility] Address Unknown Phone Unavailable Care Team Providers Care Portable Pinch Riveter Name Role Phone PCP Unavailable Allergies No [...] Meek PA 01/30/2018 Emergency Emergency Medicine after 07/30/2017 Social History Date Tobacco Use Types Packs/Day [...] July (>/=19 yrs) Results Not on fileafter 07/30/2017 Insurance Type Payer Benefit Subscriber ID Effective Phone Address Plan / Dates Group [facility] CHOICE xxxxxxxxx 2017-P [phone] [id number] [place] [address]
--- OUTSIDE RECORDS SUMMARY | 2018-12-07 14:32 | XMS REPORT | Clinical Summary ---
Author Author [facility] Organization [facility] Address Unknown Phone Unavailable Care Team Providers Care Traffic Checker Name Role Phone PCP Unavailable Allergies No [...] Meek PA 01/30/2018 Emergency Emergency Medicine after 08/13/2017 Social History Date Tobacco Use Types Packs/Day [...] July (>/=19 yrs) Results Not on fileafter 08/13/2017 Insurance Type Payer Benefit Subscriber ID Effective Phone Address Plan / Dates Group [facility] CHOICE xxxxxxxxx 2017-P [phone] [id number] [place] [address]
--- OUTSIDE RECORDS SUMMARY | 2018-12-07 14:32 | XMS REPORT | Clinical Summary ---
Author Author [facility] Organization [facility] Address Unknown Phone Unavailable Care Team Providers Care Restaurant Hourly Team Member Name Role Phone PCP Unavailable Allergies No [...] Emergency Emergency Medicine Luis Meek PA after 03/23/2017 Social History Tobacco Use Types Packs/Day Years [...] July (>/=19 yrs) Results Not on fileafter 03/23/2017
--- OUTSIDE RECORDS SUMMARY | 2018-12-07 14:32 | XMS REPORT | Clinical Summary ---
Author Author [facility] Organization [facility] Address Unknown Phone Unavailable Care Team Providers Care Compensation Administrator Name Role Phone PCP Unavailable Allergies No [...] Meek PA 01/30/2018 Emergency Emergency Medicine after 07/08/2017 Social History Date Tobacco Use Types Packs/Day [...] July (>/=19 yrs) Results Not on fileafter 07/08/2017 Insurance Type Payer Benefit Subscriber ID Effective Phone Address Plan / Dates Group [facility] CHOICE xxxxxxxxx 2017-P [phone] [id number] [place] [address]
--- OUTSIDE RECORDS SUMMARY | 2018-12-07 14:32 | XMS REPORT | Clinical Summary ---
Author Author [facility] Organization [facility] Address Unknown Phone Unavailable Care Team Providers Care Travel Attendants Name Role Phone PCP Unavailable Allergies No [...] Meek PA 01/30/2018 Emergency Emergency Medicine after 10/05/2017 Social History Date Tobacco Use Types Packs/Day [...] July (>/=19 yrs) Results Not on fileafter 10/05/2017 Insurance Type Payer Benefit Subscriber ID Effective Phone Address Plan / Dates Group [facility] CHOICE xxxxxxxxx 2017-P [phone] [id number] [place] [address]
--- OUTSIDE RECORDS SUMMARY | 2018-12-07 14:32 | XMS REPORT | Summary of Care ---
Author Author [facility] Organization [facility] Address Unknown Phone Unavailable Encounter DAJA Brown(ALANIS) [id number] Date(s): 04/13/17 - 04/13/17 [facility] [address] [employer] provided by [facility] [place] [address]- Discharge Diagnosis: Effusion, left knee Discharge Disposition: Home or Self Care Attending Physician: Juan F Brewer MD Vital Signs 1 2 3 Most recent to oldest [Reference Range]: 98.3 DegF (04/13/17 7:45 PM) 98.0 DegF (04/13/17 3:42 PM) Temperature Oral [96.4-99.1 DegF] 129/80 mmHg (04/13/17 7:45 PM) 136/84 mmHg (04/13/17 6:00 PM) 141/85 mmHg *HI* (04/13/17 3:42 PM) Blood Pressure [90-140/60-90 mmHg] 20 BRMIN (04/13/17 7:45 PM) 18 BRMIN (04/13/17 6:00 PM) 18 BRMIN (04/13/17 3:42 PM) Respiratory Rate [14-20 BRMIN] 63 bpm (04/13/17 7:45 PM) 88 bpm (04/13/17 6:00 PM) 91 bpm (04/13/17 3:42 PM) Peripheral Pulse Rate [60-100 bpm] Problem List Condition Effective Dates Status Health Status Informant Bronchitis(Confirmed Resolved ) Cholecystitis(Confir Resolved med) Effusion, left Active knee(Confirmed) Allergies, Adverse Reactions, Alerts Substance Reaction Severity Status NKDA Active Medications Motrin 600 mg oral tablet 600 mg=1 tab, PO, Q6H, PRN Pain, take with food, # 30 tab, 0 Refill(s) Start Date: 04/13/17 Stop Date: 04/14/17 Status: Completed Coker 5/325 oral tablet 2 tab, Route: PO, Drug Form: TAB, Dosing Weight 80, kg, ONCE, STAT, Start date: 04/13/17 17:33:00 MOLECULAR BIOLOGIST, Stop date: 04/13/17 17:33:00 MOLECULAR BIOLOGIST Start Date: 04/13/17 Stop Date: 04/13/17 Status: Completed tramadol 50 mg oral tablet 50 mg=1 tab, PO, BID, X 15 day, # 30 tab, 0 Refill(s) Start Date: 04/13/17 Stop Date: 04/28/17 Status: Ordered Zofran ODT 4 mg, Route: PO, Drug form: TABDIS, ONCE, Dosing Weight 80, kg, Priority: STAT, Start date: 04/13/17 17:33:00 MOLECULAR BIOLOGIST, Stop date: 04/13/17 17:33:00 MOLECULAR BIOLOGIST Start Date: 04/13/17 Stop Date: 04/13/17 Status: Completed Zofran ODT 4 mg oral tablet, disintegrating 4 mg=1 tab, PO, BID, PRN Nausea and Vomiting, Dissolve tab under tongue, # 10 ta b, 0 Refill(s) Start Date: 04/13/17 Stop Date: 04/18/17 Status: Ordered Results No data available for [...]
--- OUTSIDE RECORDS SUMMARY | 2018-12-07 14:32 | XMS REPORT | Clinical Summary ---
Author Author [facility] Organization [facility] Address Unknown Phone Unavailable Care Team Providers Care Foundry Hand Name Role Phone PCP Unavailable Allergies No [...] Emergency Emergency Medicine Luis Meek PA after 02/19/2017 Social History Tobacco Use Types Packs/Day Years [...] 01/30/2018 11:38 AM CDT Plan of Treatment Date Type Specialty Care Team Description 02/23/2018 Office Visit Family Practice Brendon Pan MD FOLLOW UP APPT FROM SAME [address] [place] [address]... [address] [place] [address] [phone] Health Maintenance Due Date Last Done Comments Cervical Cancer Scrn (3 1986 Yrs) Breast Cancer Scrn 2005 (Yearly) Colorectal Cancer Scrn 2015 Annual (FIT/FOBT) Age 50 to 75 IMM Influenza Seasonal 02/16/2018Feb to July (>/=19 yrs) Results Not on fileafter 02/19/2017
--- OUTSIDE RECORDS SUMMARY | 2018-12-07 14:32 | XMS REPORT | Summary of Care ---
Author Author [facility] Address Unknown Phone Unavailable Encounter HQ Mahesh_joby(ALANIS) [id number] Date(s): 07/09/18 - 08/07/18 Counts include 234 beds at the [facility] Discharge Disposition: Home or Self Care Attending Physician: Germán Gupta MD Vital Signs No data available for this section Problem List Condition Effective Dates Status Health Status Informant Bronchitis(Confirmed Resolved ) Cholecystitis(Confir Resolved med) Effusion, left Active knee(Confirmed) Allergies, Adverse Reactions, Alerts Substance Reaction Severity Status NKDA Active Medications No data available for this section [...]
--- OUTSIDE RECORDS SUMMARY | 2018-12-07 14:33 | XMS REPORT ---
[facility] Address Unknown Phone Unavailable Care Team Providers Care Zipper Trimmer Name Role Phone LEIA JOSE Unavailable Unavailable Payers Payer Name Policy Type Policy Number Effective Date Expiration Date Problems This patient has no known problems. Allergies, Adverse Reactions, Alerts Allergy Name Allergy Type Status Severity Reaction(s) Onset Date Inactive Date Treating Clinician Comments No Known Allergies DA Active U 2016-08-27 00:00:00 Medications This patient has no known medications. Encounters Start Date/Time End Date/Time Encounter Type Admission Type Attending Clinicians Care Facility Care Department Encounter ID 2018-02-23 00:00:00 2018-02-23 00:00:00 Outpatient [facility] [id number] 2018-02-03 00:00:00 2018-02-03 00:00:00 Outpatient [facility] [id number] 2018-01-30 11:37:09 2018-01-30 11:37:09 Outpatient [facility] [id number] 2018-01-30 09:48:01 2018-01-30 09:48:01 Emergency [facility] [id number] Results Test Description Test Time Test Comments Text Results Atomic Results Result Comments CBC W/AUTO DIFF 2018-09-25 15:41:00 WHITE BLOOD CELL (test code=WBC) 7.4 K/mm3 4.5-12.5 RED BLOOD CELL (test code=RBC) 4.22 mill/mm3 3.7-5.2 HEMOGLOBIN (test code=HGB) 10.8 gram/dL 11.5-15.5 HEMATOCRIT (test code=HCT) 36.5 % 36.0-46.0 MEAN CELL VOLUME (test code=MCV) 86.5 fL 80-98 MEAN CELL HGB (test code=MCH) 25.6 picogram 27.0-33.0 MEAN CELL HGB CONCETRATION (test code=MCHC) 29.6 gram/dL 33.0-36.0 RED CELL DISTRIBUTION WIDTH (test code=RDW) 12.6 % 11.6-16.2 RED CELL DISTRIBUTION WIDTH SD (test code=RDW-SD) 39.2 fL 37.0-51.0 PLATELET COUNT (test code=PLT) 431 K/mm3 150-450 MEAN PLATELET VOLUME (test code=MPV) 9.9 fL 6.7-11.0 NEUTROPHIL % (test code=NT%) 67.7 % 39.0-69.0 IMMATURE GRANULOCYTE % (test code=IG%) 0.5 % 0.0-5.0 LYMPHOCYTE % (test code=LY%) 17.1 % 25.0-55.0 MONOCYTE % (test code=MO%) 8.3 % 0.0-10.0 EOSINOPHIL % (test code=EO%) 5.7 % 0.0-5.0 BASOPHIL % (test code=BA%) 0.7 % 0.0-1.0 NUCLEATED RBC % (test code=NRBC%) 0.0 % 0-0 NEUTROPHIL # (test code=NT#) 4.98 K/mm3 1.8-7.7 IMMATURE GRANULOCYTE # (test code=IG#) 0.04 x10 3/uL 0-0.03 LYMPHOCYTE # (test code=LY#) 1.26 K/mm3 1.0-5.0 MONOCYTE # (test code=MO#) 0.61 K/mm3 0-0.8 EOSINOPHIL # (test code=EO#) 0.42 K/mm3 0.0-0.5 BASOPHIL # (test code=BA#) 0.05 K/mm3 0.0-0.2 NUCLEATED RBC # (test code=NRBC#) 0.00 K/mm3 0.0-0.1 MANUAL DIFF REQUIRED (test code=MDIFF) NO, ONLY SCAN NEEDED DIFFERENTIAL [id number] 15:41:00* Test Item Value Reference Range Comments STAIN ACCEPTABILITY (test code=STN ACCEPTABLE) STAIN ACCEPTABLE MORPHOLOGY COMMENT (test code=MOC) NORMAL PLATELET ESTIMATE (test code=PLTEST) PLATELET MORPHOLOGY (test code=PLTMORPH) SIZE VARIABLE CBC W/AUTO [id number] 15:41:00* Test Item Value Reference Range Comments WHITE BLOOD CELL (test code=WBC) 7.4 K/mm3 4.5-12.5 RED BLOOD CELL (test code=RBC) 4.22 mill/mm3 3.7-5.2 HEMOGLOBIN (test code=HGB) 10.8 gram/dL 11.5-15.5 HEMATOCRIT (test code=HCT) 36.5 % 36.0-46.0 MEAN CELL VOLUME (test code=MCV) 86.5 fL 80-98 MEAN CELL HGB (test code=MCH) 25.6 picogram 27.0-33.0 MEAN CELL HGB CONCETRATION (test code=MCHC) 29.6 gram/dL 33.0-36.0 RED CELL DISTRIBUTION WIDTH (test code=RDW) 12.6 % 11.6-16.2 RED CELL DISTRIBUTION WIDTH SD (test code=RDW-SD) 39.2 fL 37.0-51.0 PLATELET COUNT (test code=PLT) 431 K/mm3 150-450 MEAN PLATELET VOLUME (test code=MPV) 9.9 fL 6.7-11.0 NEUTROPHIL % (test code=NT%) 67.7 % 39.0-69.0 IMMATURE GRANULOCYTE % (test code=IG%) 0.5 % 0.0-5.0 LYMPHOCYTE % (test code=LY%) 17.1 % 25.0-55.0 MONOCYTE % (test code=MO%) 8.3 % 0.0-10.0 EOSINOPHIL % (test code=EO%) 5.7 % 0.0-5.0 BASOPHIL % (test code=BA%) 0.7 % 0.0-1.0 NUCLEATED RBC % (test code=NRBC%) 0.0 % 0-0 NEUTROPHIL # (test code=NT#) 4.98 K/mm3 1.8-7.7 IMMATURE GRANULOCYTE # (test code=IG#) 0.04 x10 3/uL 0-0.03 LYMPHOCYTE # (test code=LY#) 1.26 K/mm3 1.0-5.0 MONOCYTE # (test code=MO#) 0.61 K/mm3 0-0.8 EOSINOPHIL # (test code=EO#) 0.42 K/mm3 0.0-0.5 BASOPHIL # (test code=BA#) 0.05 K/mm3 0.0-0.2 NUCLEATED RBC # (test code=NRBC#) 0.00 K/mm3 0.0-0.1 MANUAL DIFF REQUIRED (test code=MDIFF) NO, ONLY SCAN NEEDED DIFFERENTIAL [id number] 15:41:00* Test Item Value Reference Range Comments STAIN ACCEPTABILITY (test code=STN ACCEPTABLE) STAIN ACCEPTABLE MORPHOLOGY COMMENT (test code=MOC) NORMAL PLATELET ESTIMATE (test code=PLTEST) ADEQUATE PLATELET MORPHOLOGY (test code=PLTMORPH) SIZE VARIABLE CBC W/AUTO [id number] 14:42:00* Test Item Value Reference Range Comments WHITE BLOOD CELL (test code=WBC) K/mm3 4.5-12.5 RED BLOOD CELL (test code=RBC) mill/mm3 3.7-5.2 HEMOGLOBIN (test code=HGB) gram/dL 11.5-15.5 HEMATOCRIT (test code=HCT) 36.5 % 36.0-46.0 MEAN CELL VOLUME (test code=MCV) fL 80-98 MEAN CELL HGB (test code=MCH) picogram 27.0-33.0 MEAN CELL HGB CONCETRATION (test code=MCHC) gram/dL 33.0-36.0 RED CELL DISTRIBUTION WIDTH (test code=RDW) % 11.6-16.2 RED CELL DISTRIBUTION WIDTH SD (test code=RDW-SD) fL 37.0-51.0 PLATELET COUNT (test code=PLT) K/mm3 150-450 MEAN PLATELET VOLUME (test code=MPV) fL 6.7-11.0 NEUTROPHIL % (test code=NT%) % 39.0-69.0 IMMATURE GRANULOCYTE % (test code=IG%) % 0.0-5.0 LYMPHOCYTE % (test code=LY%) % 25.0-55.0 MONOCYTE % (test code=MO%) % 0.0-10.0 EOSINOPHIL % (test code=EO%) % 0.0-5.0 BASOPHIL % (test code=BA%) % 0.0-1.0 NEUTROPHIL # (test code=NT#) K/mm3 1.8-7.7 LYMPHOCYTE # (test code=LY#) K/mm3 1.0-5.0 MONOCYTE # (test code=MO#) K/mm3 0-0.8 EOSINOPHIL # (test code=EO#) K/mm3 0.0-0.5 BASOPHIL # (test code=BA#) K/mm3 0.0-0.2 CBC W/AUTO [id number] 14:42:00* Test Item Value Reference Range Comments WHITE BLOOD CELL (test code=WBC) 7.4 K/mm3 4.5-12.5 RED BLOOD CELL (test code=RBC) 4.22 mill/mm3 3.7-5.2 HEMOGLOBIN (test code=HGB) 10.8 gram/dL 11.5-15.5 HEMATOCRIT (test code=HCT) 36.5 % 36.0-46.0 MEAN CELL VOLUME (test code=MCV) 86.5 fL 80-98 MEAN CELL HGB (test code=MCH) 25.6 picogram 27.0-33.0 MEAN CELL HGB CONCETRATION (test code=MCHC) 29.6 gram/dL 33.0-36.0 RED CELL DISTRIBUTION WIDTH (test code=RDW) 12.6 % 11.6-16.2 RED CELL DISTRIBUTION WIDTH SD (test code=RDW-SD) 39.2 fL 37.0-51.0 PLATELET COUNT (test code=PLT) 431 K/mm3 150-450 MEAN PLATELET VOLUME (test code=MPV) 9.9 fL 6.7-11.0 NEUTROPHIL % (test code=NT%) 67.7 % 39.0-69.0 IMMATURE GRANULOCYTE % (test code=IG%) 0.5 % 0.0-5.0 LYMPHOCYTE % (test code=LY%) 17.1 % 25.0-55.0 MONOCYTE % (test code=MO%) 8.3 % 0.0-10.0 EOSINOPHIL % (test code=EO%) 5.7 % 0.0-5.0 BASOPHIL % (test code=BA%) 0.7 % 0.0-1.0 NUCLEATED RBC % (test code=NRBC%) 0.0 % 0-0 NEUTROPHIL # (test code=NT#) 4.98 K/mm3 1.8-7.7 IMMATURE GRANULOCYTE # (test code=IG#) 0.04 x10 3/uL 0-0.03 LYMPHOCYTE # (test code=LY#) 1.26 K/mm3 1.0-5.0 MONOCYTE # (test code=MO#) 0.61 K/mm3 0-0.8 EOSINOPHIL # (test code=EO#) 0.42 K/mm3 0.0-0.5 BASOPHIL # (test code=BA#) 0.05 K/mm3 0.0-0.2 NUCLEATED RBC # (test code=NRBC#) 0.00 K/mm3 0.0-0.1 MANUAL DIFF REQUIRED (test code=MDIFF) NO, ONLY SCAN NEEDED DIFFERENTIAL [id number] 14:42:00* Test Item Value Reference Range Comments STAIN ACCEPTABILITY (test code=STN ACCEPTABLE) CABOT RINGS (test code=CAB) MORPHOLOGY COMMENT (test code=MOC) PLATELET ESTIMATE (test code=PLTEST) PLATELET MORPHOLOGY (test code=PLTMORPH) CBC W/AUTO [id number] 14:42:00* Test Item Value Reference Range Comments WHITE BLOOD CELL (test code=WBC) 7.4 K/mm3 4.5-12.5 RED BLOOD CELL (test code=RBC) 4.22 mill/mm3 3.7-5.2 HEMOGLOBIN (test code=HGB) 10.8 gram/dL 11.5-15.5 HEMATOCRIT (test code=HCT) 36.5 % 36.0-46.0 MEAN CELL VOLUME (test code=MCV) 86.5 fL 80-98 MEAN CELL HGB (test code=MCH) 25.6 picogram 27.0-33.0 MEAN CELL HGB CONCETRATION (test code=MCHC) 29.6 gram/dL 33.0-36.0 RED CELL DISTRIBUTION WIDTH (test code=RDW) 12.6 % 11.6-16.2 RED CELL DISTRIBUTION WIDTH SD (test code=RDW-SD) 39.2 fL 37.0-51.0 PLATELET COUNT (test code=PLT) 431 K/mm3 150-450 MEAN PLATELET VOLUME (test code=MPV) 9.9 fL 6.7-11.0 NEUTROPHIL % (test code=NT%) 67.7 % 39.0-69.0 IMMATURE GRANULOCYTE % (test code=IG%) 0.5 % 0.0-5.0 LYMPHOCYTE % (test code=LY%) 17.1 % 25.0-55.0 MONOCYTE % (test code=MO%) 8.3 % 0.0-10.0 EOSINOPHIL % (test code=EO%) 5.7 % 0.0-5.0 BASOPHIL % (test code=BA%) 0.7 % 0.0-1.0 NUCLEATED RBC % (test code=NRBC%) 0.0 % 0-0 NEUTROPHIL # (test code=NT#) 4.98 K/mm3 1.8-7.7 IMMATURE GRANULOCYTE # (test code=IG#) 0.04 x10 3/uL 0-0.03 LYMPHOCYTE # (test code=LY#) 1.26 K/mm3 1.0-5.0 MONOCYTE # (test code=MO#) 0.61 K/mm3 0-0.8 EOSINOPHIL # (test code=EO#) 0.42 K/mm3 0.0-0.5 BASOPHIL # (test code=BA#) 0.05 K/mm3 0.0-0.2 NUCLEATED RBC # (test code=NRBC#) 0.00 K/mm3 0.0-0.1 MANUAL DIFF REQUIRED (test code=MDIFF) NO, ONLY SCAN NEEDED DIFFERENTIAL [id number] 14:42:00* Test Item Value Reference Range Comments STAIN ACCEPTABILITY (test code=STN ACCEPTABLE) CABOT RINGS (test code=CAB) MORPHOLOGY COMMENT (test code=MOC) PLATELET ESTIMATE (test code=PLTEST) PLATELET MORPHOLOGY (test code=PLTMORPH) CBC W/AUTO [id number] 14:42:00* Test Item Value Reference Range Comments WHITE BLOOD CELL (test code=WBC) 7.4 K/mm3 4.5-12.5 RED BLOOD CELL (test code=RBC) 4.22 mill/mm3 3.7-5.2 HEMOGLOBIN (test code=HGB) 10.8 gram/dL 11.5-15.5 HEMATOCRIT (test code=HCT) 36.5 % 36.0-46.0 MEAN CELL VOLUME (test code=MCV) 86.5 fL 80-98 MEAN CELL HGB (test code=MCH) 25.6 picogram 27.0-33.0 MEAN CELL HGB CONCETRATION (test code=MCHC) 29.6 gram/dL 33.0-36.0 RED CELL DISTRIBUTION WIDTH (test code=RDW) 12.6 % 11.6-16.2 RED CELL DISTRIBUTION WIDTH SD (test code=RDW-SD) 39.2 fL 37.0-51.0 PLATELET COUNT (test code=PLT) 431 K/mm3 150-450 MEAN PLATELET VOLUME (test code=MPV) 9.9 fL 6.7-11.0 NEUTROPHIL % (test code=NT%) 67.7 % 39.0-69.0 IMMATURE GRANULOCYTE % (test code=IG%) 0.5 % 0.0-5.0 LYMPHOCYTE % (test code=LY%) 17.1 % 25.0-55.0 MONOCYTE % (test code=MO%) 8.3 % 0.0-10.0 EOSINOPHIL % (test code=EO%) 5.7 % 0.0-5.0 BASOPHIL % (test code=BA%) 0.7 % 0.0-1.0 NUCLEATED RBC % (test code=NRBC%) 0.0 % 0-0 NEUTROPHIL # (test code=NT#) 4.98 K/mm3 1.8-7.7 IMMATURE GRANULOCYTE # (test code=IG#) 0.04 x10 3/uL 0-0.03 LYMPHOCYTE # (test code=LY#) 1.26 K/mm3 1.0-5.0 MONOCYTE # (test code=MO#) 0.61 K/mm3 0-0.8 EOSINOPHIL # (test code=EO#) 0.42 K/mm3 0.0-0.5 BASOPHIL # (test code=BA#) 0.05 K/mm3 0.0-0.2 NUCLEATED RBC # (test code=NRBC#) 0.00 K/mm3 0.0-0.1 MANUAL DIFF REQUIRED (test code=MDIFF) NO, ONLY SCAN NEEDED DIFFERENTIAL [id number] 14:42:00* Test Item Value Reference Range Comments STAIN ACCEPTABILITY (test code=STN ACCEPTABLE) MORPHOLOGY COMMENT (test code=MOC) PLATELET ESTIMATE (test code=PLTEST) PLATELET MORPHOLOGY (test code=PLTMORPH) CBC W/AUTO [id number] 14:42:00* Test Item Value Reference Range Comments WHITE BLOOD CELL (test code=WBC) 7.4 K/mm3 4.5-12.5 RED BLOOD CELL (test code=RBC) 4.22 mill/mm3 3.7-5.2 HEMOGLOBIN (test code=HGB) 10.8 gram/dL 11.5-15.5 HEMATOCRIT (test code=HCT) 36.5 % 36.0-46.0 MEAN CELL VOLUME (test code=MCV) 86.5 fL 80-98 MEAN CELL HGB (test code=MCH) 25.6 picogram 27.0-33.0 MEAN CELL HGB CONCETRATION (test code=MCHC) 29.6 gram/dL 33.0-36.0 RED CELL DISTRIBUTION WIDTH (test code=RDW) 12.6 % 11.6-16.2 RED CELL DISTRIBUTION WIDTH SD (test code=RDW-SD) 39.2 fL 37.0-51.0 PLATELET COUNT (test code=PLT) 431 K/mm3 150-450 MEAN PLATELET VOLUME (test code=MPV) 9.9 fL 6.7-11.0 NEUTROPHIL % (test code=NT%) 67.7 % 39.0-69.0 IMMATURE GRANULOCYTE % (test code=IG%) 0.5 % 0.0-5.0 LYMPHOCYTE % (test code=LY%) 17.1 % 25.0-55.0 MONOCYTE % (test code=MO%) 8.3 % 0.0-10.0 EOSINOPHIL % (test code=EO%) 5.7 % 0.0-5.0 BASOPHIL % (test code=BA%) 0.7 % 0.0-1.0 NUCLEATED RBC % (test code=NRBC%) 0.0 % 0-0 NEUTROPHIL # (test code=NT#) 4.98 K/mm3 1.8-7.7 IMMATURE GRANULOCYTE # (test code=IG#) 0.04 x10 3/uL 0-0.03 LYMPHOCYTE # (test code=LY#) 1.26 K/mm3 1.0-5.0 MONOCYTE # (test code=MO#) 0.61 K/mm3 0-0.8 EOSINOPHIL # (test code=EO#) 0.42 K/mm3 0.0-0.5 BASOPHIL # (test code=BA#) 0.05 K/mm3 0.0-0.2 NUCLEATED RBC # (test code=NRBC#) 0.00 K/mm3 0.0-0.1 MANUAL DIFF REQUIRED (test code=MDIFF) NO, ONLY SCAN NEEDED DIFFERENTIAL [id number] 14:42:00* Test Item Value Reference Range Comments STAIN ACCEPTABILITY (test code=STN ACCEPTABLE) CABOT RINGS (test code=CAB) MORPHOLOGY COMMENT (test code=MOC) PLATELET ESTIMATE (test code=PLTEST) PLATELET MORPHOLOGY (test code=PLTMORPH) COMPREHENSIVE METABOLIC [id number] 14:22:00* Test Item Value Reference Range Comments SODIUM (test code=NA) 138 mmol/L 136-145 POTASSIUM (test code=K) 4.8 mmol/L 3.5-5.1 CHLORIDE (test code=CL) 105.0 mmol/L 98-107 CARBON DIOXIDE (test code=CO2) 29.0 mmol/L 21-32 ANION GAP (test code=GAP) 8.8 10-20 GLUCOSE (test code=GLU) 85 mg/dL 74-106 BLOOD UREA NITROGEN (test code=BUN) 10 mg/dL 7-18 GLOMERULAR FILTRATION RATE (test code=GFR) > 60 mL/min >=60 Estimated GFR by using Modified MDRD formula.Chronic kidney disease is defined as either kidney damageor GFR <60 mL/min/1.73 m2 for >3 months. CREATININE (test code=CREAT) 0.70 mg/dL 0.55-1.02 Note change in reference range due to change in reagent. BUN/CREATININE RATIO (test code=BUN/CREA) 14.3 10-20 TOTAL PROTEIN (test code=PROT) 8.8 gram/dL 6.4-8.2 ALBUMIN (test code=ALB) 3.4 g/dL 3.4-5.0 GLOBULIN (test code=GLOB) 5.4 gram/dL 2.7-4.2 ALBUMIN/GLOBULIN RATIO (test code=A/G) 0.6 0.75-1.50 CALCIUM (test code=CA) 9.9 mg/dL 8.5-10.1 BILIRUBIN TOTAL (test code=BILT) 0.30 mg/dL 0.0-1.0 SGOT/AST (test code=AST) 15 IUnit/L 15-37 SGPT/ALT (test code=ALT) 13 IUnit/L 12-78 ALKALINE PHOSPHATASE TOTAL (test code=ALKP) 104 IUnit/L 45-117 Note change in reference range due to change in reagent. HCG SERUM [id number] 14:22:00* Test Item Value Reference Range Comments HCG SERUM QUAL (test code=HCGQL) NEGATIVE NEGATIVE This HCGQL test is NOT applicable for MALE patients.Check with nurse about probable order error.If Tumor Marker Test needed, nurse should order test "HCGTU"(Test #550.06345) COMPREHENSIVE METABOLIC [id number] 14:21:00* Test Item Value Reference Range Comments SODIUM (test code=NA) mmol/L 136-145 POTASSIUM (test code=K) mmol/L 3.5-5.1 CHLORIDE (test code=CL) mmol/L 98-107 CARBON DIOXIDE (test code=CO2) mmol/L 21-32 ANION GAP (test code=GAP) 10-20 GLUCOSE (test code=GLU) mg/dL 74-106 BLOOD UREA NITROGEN (test code=BUN) mg/dL 7-18 GLOMERULAR FILTRATION RATE (test code=GFR) mL/min >=60 CREATININE (test code=CREAT) mg/dL 0.55-1.02 BUN/CREATININE RATIO (test code=BUN/CREA) 10-20 TOTAL PROTEIN (test code=PROT) gram/dL 6.4-8.2 ALBUMIN (test code=ALB) g/dL 3.4-5.0 GLOBULIN (test code=GLOB) gram/dL 2.7-4.2 ALBUMIN/GLOBULIN RATIO (test code=A/G) 0.75-1.50 CALCIUM (test code=CA) mg/dL 8.5-10.1 BILIRUBIN TOTAL (test code=BILT) mg/dL 0.0-1.0 SGOT/AST (test code=AST) IUnit/L 15-37 SGPT/ALT (test code=ALT) IUnit/L 12-78 ALKALINE PHOSPHATASE TOTAL (test code=ALKP) IUnit/L 45-117 HCG SERUM [id number] 14:21:00* Test Item Value Reference Range Comments HCG SERUM QUAL (test code=HCGQL) NEGATIVE NEGATIVE This HCGQL test is NOT applicable for MALE patients.Check with nurse about probable order error.If Tumor Marker Test needed, nurse should order test "HCGTU"(Test #550.22023) - [facility]IN UNI/[id number] 20:47:00 Patient Name: NANCY ALEGRIA Unit No: [id number] EXAMS: CPT CODE: [id number] [facility] [id number] - [facility] 09/02/2018 6:39 PM Indication: Left leg pain swelling paralysis LEFT LEG VENOUS DOPPLER: The veins of the left lower extremity were interrogated from the visible common femoral vein to the distal popliteal vein. Flow is present in these vessels. They demonstrate normal compressibility and augmentation of flow with appropriate maneuvers. Normal respiratory variation of flow is noted. In the left popliteal fossa, there is a 2.6 x 1.0 x 2.9 cm cystic area probably Rios's cyst. IMPRESSION: No evidence of deep venous thrombosis. Small Rios's cyst. at 2046 Reported and signed by: Nick Laird MD CC: Andre Harley MD Technologist: Lynsey KAPLAN Trnscrbd D/ (2046) SandeepPKE Orig Print D/T: S: 09/02/2018 (2049) Probe: [facility] NAME: NANCY ALEGRIA [address] PH[address]: [place] [address] : 1965 AGE: 53 SEX: F LOC: [facility] PHONE #: [phone] EXAM DATE: 09/02/2018 STATUS: REG ER FAX #: RAD NO: Page 1 Signed Report BASIC METABOLIC [id number] 19:57:00* Test Item Value Reference Range Comments SODIUM (test code=NA) 141 MMOL/L 133-145 POTASSIUM (test code=K) 3.7 MMOL/L 3.6-5.2 CHLORIDE (test code=CL) 103 MMOL/L 100-108 CARBON DIOXIDE (test code=CO2) 31 MMOL/L 22-32 GLUCOSE (test code=GLU) 91 MG/DL 65-99 Results of this assay method may be falsely depressed orelevated if patient is taking sulfasalazine. BLOOD UREA NITROGEN (test code=BUN) 9 MG/DL 6-20 GLOMERULAR FILTRATION RATE (test code=GFR) 83 51-120 Reporting units: mL/min/1.73m\\S\\2 (Modified MDRD Formula) CREATININE (test code=CREAT) 0.73 MG/DL 0.60-1.00 CALCIUM (test code=CA) 9.0 MG/DL 8.7-10.5 URIC [id number] 19:57:00* Test Item Value Reference Range Comments URIC ACID (test code=URIC) 4.3 MG/DL 2.6-6.0 CBC W/AUTO [id number] 19:24:00* Test Item Value Reference Range Comments WHITE BLOOD CELL (test code=WBC) 8.13 x10 3/uL 4.80-10.80 RED BLOOD CELL (test code=RBC) 3.88 x10 6/uL 4.2-5.4 HEMOGLOBIN (test code=HGB) 10.5 G/DL 12.0-16.0 HEMATOCRIT (test code=HCT) 34.0 % 37-47 MEAN CELL VOLUME (test code=MCV) 87.6 FL 81-99 MEAN CELL HGB (test code=MCH) 27.1 PG 27-31 MEAN CELL HGB CONCENTRATION (test code=MCHC) 30.9 G/DL 33-37 RED CELL DISTRIBUTION WIDTH (test code=RDW) 13.2 % 11.5-14.5 PLATELET COUNT (test code=PLT) 410 x10 3/uL 150-450 MEAN PLATELET VOLUME (test code=MPV) 9.2 FL 7.4-10.4 NEUTROPHIL % (test code=NT%) 75.8 % 42-86 IMMATURE GRANULOCYTE % (test code=IG%) 0.2 % 0.0-2.0 LYMPHOCYTE % (test code=LY%) 10.5 % 24-44 MONOCYTE % (test code=MO%) 9.1 % 0.0-4.0 EOSINOPHIL % (test code=EO%) 3.9 % 0.0-2.7 BASOPHIL % (test code=BA%) 0.5 % 0.0-0.5 NUCLEATED RBC % (test code=NRBC%) 0.0 % 0.0-0.0 NEUTROPHIL # (test code=NT#) 6.16 x10 3/uL 1.8-7.7 IMMATURE GRANULOCYTE # (test code=IG#) 0.02 x10 3/uL 0.00-0.03 LYMPHOCYTE # (test code=LY#) 0.85 x10 3/uL 1.0-4.8 MONOCYTE # (test code=MO#) 0.74 x10 3/uL 0.0-0.8 EOSINOPHIL # (test code=EO#) 0.32 x10 3/uL 0.0-0.5 BASOPHIL # (test code=BA#) 0.04 x10 3/uL 0.0-0.2 NUCLEATED RBC # (test code=NRBC#) 0.0 X10 3/uL 0.0-0.2 - XR KNEE 1 OR 2 V [id number] 19:17:00 Patient Name: NANCY ALEGRIA Unit No: [id number] EXAMS: CPT CODE: [id number] XR KNEE 1 OR 2 V LT [id number] Reason: left knee pain and sweeling - XR KNEE 1 OR 2 V LT 09/02/2018 6:39 PM Indication: Left knee pain and swelling Impression: FINDINGS: Limited two-view study shows large joint effusion which could be internal derangement or infection related. Bones unremarkable. at 1917 Reported and signed by: Nick Laird MD CC: Andre Harley MD Technologist: Kuldip ROJAS Trscrpt Dt/ (1916)DickE Orig Print D/T: S: 09/02/2018 (1919) [facility] NAME: NANCY ALEGRIA [address]: [place] [address] : 1965 AGE: 53 SEX: F LOC: ENRIQUE PHONE #: [phone] EXAM DATE: 09/02/2018 STATUS: REG ER FAX #: RAD NO: DC Dt: PAGE 1 Signed Report - XR CHEST 1 [id number] 19:14:00 Patient Name: NANCY ALEGRIA Unit No: [id number] EXAMS: CPT CODE: [id number] XR CHEST 1 V [id number] Reason: cough and vomiting - XR CHEST 1 V 09/02/2018 6:39 PM Indication: Cough The lungs are clear of focal infiltration or consolidation. No mass is noted. The cardiomediastinal silhouette is unremarkable for age. Expected senescent changes are identified in keeping with the patient's age. IMPRESSION: No evidence of acute cardiopulmonary disease. at 1913 Reported and signed by: Nick Laird MD CC: Andre Harley MD Technologist: Kuldip ROJAS Trscrpt Dt/ (1913)SandeepPKE Orig Print D/T: S: 09/02/2018 (1916) [facility] NAME: NANCY ALEGRIA [address]: [place] [address] : 1965 AGE: 53 SEX: F LOC: ENRIQUE PHONE #: [phone] EXAM DATE: 09/02/2018 STATUS: REG ER FAX #: RAD NO: DC Dt: PAGE 1 Signed Report MAMMOGRAPHY DIGITAL SCR [place] [address] Patient Name: NANCY ALEGRIA MR #: [id number] : 1965 Age/Sex: 51/F Req #: [id number] Adm Physician: Ordered by: DAMON MONROY, LEIA Reynaga MD Report #: [id number] Location: [facility] Room/Bed: Procedure: [id number] MG/MAMMOGRAPHY IVAN WANG Exam Date: 05/08/17 Exam Time: 1046 REPORT STATUS: Signed #[id number] - MGSCRBIL #BILATERAL FIRST EVER DIGITAL SCREENING MAMMOGRAM WITH CAD: 05/08/2017 CLINICAL: Routine screening. Baseline exam. No prior exams were available for comparison. Current s tudy contains 4 films. There are scattered fibroglandular elements in both b reasts. Current study was also evaluated with a Computer Aided Detection (CA D) system. There is a small oval mass with benign characteristics in the rig ht breast at 3 o'clock middle depth. Scattered benign calcification and va scular calcification is present in both breasts. No other significant masses , calcifications, or other findings are seen in either breast. IMPRESSION : INCOMPLETE: NEEDS ADDITIONAL IMAGING EVALUATION The oval mass in the right b reast is indeterminate. Spot compression views with possible ultrasound are recommended. The patient will be contacted by the Mammography Department to schedule this appointment. Fabricio Wu Jr., D.O. cw/: 11:04:14 Weight Clerk: Brigette HOBBS)(M), [facility] letter sent: Additional Imaging Needed Mammogram BI-RADS: 0 Indeterminate Dictated By: FABRICIO WU DO Electronically Sign ed By: FABRICIO WU DO on 05/21/17 1104 Transcribed By: EDILMA on 05/21/17 110 4 COPY TO: LEIA JOSE
--- OUTSIDE RECORDS SUMMARY | 2018-12-07 14:33 | XMS REPORT | Clinical Summary ---
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
--- OUTSIDE RECORDS SUMMARY | 2018-12-07 14:33 | XMS REPORT | Clinical Summary ---
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
--- OUTSIDE RECORDS SUMMARY | 2018-12-07 14:33 | XMS REPORT | Clinical Summary ---
Author Author [facility] Organization [facility] Address Unknown Phone Unavailable Care Team Providers Care Color Weigher Name Role Phone PCP Unavailable Allergies No [...] Meek PA 01/30/2018 Emergency Emergency Medicine after 05/17/2017 Social History Date Tobacco Use Types Packs/Day [...] July (>/=19 yrs) Results Not on fileafter 05/17/2017 Insurance Type Payer Benefit Subscriber ID Effective Phone Address Plan / Dates Group [facility] CHOICE xxxxxxxxx 2017-P [phone] [id number] [place] [address]
--- OUTSIDE RECORDS SUMMARY | 2018-12-07 14:33 | XMS REPORT | Clinical Summary ---
Author Author [facility] Organization [facility] Address Unknown Phone Unavailable Care Team Providers Care Inbound Sales Consultant Name Role Phone PCP Unavailable Allergies No [...] Meek PA 01/30/2018 Emergency Emergency Medicine after 05/22/2017 Social History Date Tobacco Use Types Packs/Day [...] July (>/=19 yrs) Results Not on fileafter 05/22/2017 Insurance Type Payer Benefit Subscriber ID Effective Phone Address Plan / Dates Group [facility] CHOICE xxxxxxxxx 2017-P [phone] [id number] [place] [address]
--- OUTSIDE RECORDS SUMMARY | 2018-12-07 14:33 | XMS REPORT | Clinical Summary ---
Author Author [facility] Organization [facility] Address Unknown Phone Unavailable Care Team Providers Care Group Segment Consultant Name Role Phone PCP Unavailable Allergies [...] Meek PA 01/30/2018 Emergency Emergency Medicine after 05/25/2017 Social History Date Tobacco Use Types Packs/Day [...] July (>/=19 yrs) Results Not on fileafter 05/25/2017 Insurance Type Payer Benefit Subscriber ID Effective Phone Address Plan / Dates Group [facility] CHOICE xxxxxxxxx 2017-P [phone] [id number] [place] [address]
--- OUTSIDE RECORDS SUMMARY | 2018-12-07 14:33 | XMS REPORT | Summary of Care ---
Author Author MAUREEN MORENO M.D. 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 Chronic pain of left knee (719.46, M25.562) Status: Active Limb pain (729.5, M79.609) Status: Active Medications Name Dates Details Multi For Her Oral Capsule TAKE 1 CAPSULE DAILY * Start : 20-Feb-2018 Active Allergies and Adverse Reactions Name Dates Details No Known Drug Allergies (Allergy) Status: Active Past Medical History Name Dates Details History of anemia (V12.3, Z86.2) Status: Resolved History of High blood pressure (401.9, I10) Status: Resolved Procedures Procedure Dates Details [QLH] CBC (INCLUDES DIFF/PLT) Date: 20-Feb-2018 [QLH] CMP W/EGFR Date: 20-Feb-2018 [QLH] C-REACTIVE PROTEIN Date: 20-Feb-2018 [QLH] SED RATE BY MODIFIED WESTERGREN Date: 20-Feb-2018 [QLH] RHEUMATOID FACTOR Date: 20-Feb-2018 [L] CCP Antibodies IgG/IgA Date: 20-Feb-2018 [QLH] HEPATITIS PANEL Date: 20-Feb-2018 [QL] QUANTIFERON(R)-TB GOLD Date: 20-Feb-2018 [QLH] HLA-B27, DNA TYPING Date: 20-Feb-2018 [QLH] URIC ACID Date: 20-Feb-2018 [QL] CELL COUNT AND DIFF, SYNOVIAL FLUID Date: 20-Feb-2018 [QL] CULTURE, AEROBIC AND ANAEROBIC W/GRAM STAIN Date: 20-Feb-2018 [QL] CRYSTALS, SYNOVIAL FLUID Date: 20-Feb-2018 History of Tubal Ligation Completed Immunization Name Dates Details Immunizations not documented Family History Name Dates Details Family history of cerebrovascular accident (CVA) (V17.1, Z82.3) Status: Active Social History Name Dates Details - Status: Name Dates Details Never smoker Vital Signs Date Test Result Details [id number] Height 59 in Status: Weight 159 lb Status: Body Mass Index Calculated 32.11 kg/m2 Status: Body Surface Area Calculated 1.67 m2 Status: Results Date Description Value Details Results not documented Plan of Care Name Dates Details Planned Observations Planned Goals not documented Planned Encounters Appointment; MAUREEN MORENO M.D. On: 30-Apr-2018 10:45 Interventions Provided Plan* Patient Education/Instructions: * Patient Education Provided * Reassurance * Patient/Parent to call or return with any abnormal changes * Orders: * Surgery: LEFT KNEE SCOPE WITH EXCISION PVNS * I have discussed the risk of Deep Vein Thrombosis (DVT) with my patient. I have thoroughly reviewed all of the contributing factors that may lead to DVT following surgery. I have prescribed a sequential compression unit for my patient to use as part of their post-operative recovery to decrease the chance of DVT. Instructions Name Dates Details Instructions not documented Encounters Appointment; RYAN MIR M.D. Encounter Diagnosis: Problem not documented On: 20-Feb-2018 8:00 Appointment; RYAN MIR M.D. Encounter Diagnosis: Problem not documented On: 06-Mar-2018 9:00 Appointment; HOLLY CHUNG M.D. Encounter Diagnosis: Problem not documented On: 12-Mar-2018 15:30 Appointment; MAUREEN MORENO M.D. Encounter Diagnosis: Problem not documented On: 31-Mar-2018 15:30
--- OUTSIDE RECORDS SUMMARY | 2018-12-07 14:33 | XMS REPORT | Clinical Summary ---
Author Author [facility] Organization [facility] Address Unknown Phone Unavailable Care Team Providers Care Triage Register Nurse Name Role Phone PCP Unavailable Allergies No [...] Meek PA 01/30/2018 Emergency Emergency Medicine after 06/20/2017 Social History Date Tobacco Use Types Packs/Day [...] July (>/=19 yrs) Results Not on fileafter 06/20/2017 Insurance Type Payer Benefit Subscriber ID Effective Phone Address Plan / Dates Group [facility] CHOICE xxxxxxxxx 2017-P [phone] [id number] [place] [address]
--- OUTSIDE RECORDS SUMMARY | 2018-12-07 14:33 | XMS REPORT | Clinical Summary ---
Author Author [facility] Organization [facility] Address Unknown Phone Unavailable Care Team Providers Care Administrative Support Manager Name Role Phone PCP Unavailable Allergies [...] Emergency Emergency Medicine Luis Meek PA after 03/30/2017 Social History Tobacco Use Types Packs/Day Years [...] July (>/=19 yrs) Results Not on fileafter 03/30/2017
--- NOTE | 2018-12-07 16:06 | Diagnostic Imaging Report ---
History: Left facial numbness Comparison studies: None Technique: Axial images were obtained from the skull base to the vertex. Coronal and sagittal reconstructions obtained from the axial data. Dose modulation, iterative reconstruction, and/or weight based adjustment of the mA/kV was utilized to reduce the radiation dose to as low as reasonably achievable. Findings: Scalp/skull: No abnormalities. No fractures, blastic or lytic lesions. Extra-axial spaces: No masses. No fluid collections. Brain sulci: Appropriate for age. Ventricles: Normal in size and configuration. No hydrocephalus. Parenchyma: No abnormal densities. No masses, hemorrhage, acute or chronic cortical vascular insults. Sellar/suprasellar region: No abnormalities Craniocervical junction: Patent foramen magnum. No Chiari one malformation. Mild atherosclerotic calcifications of the carotid siphons. IMPRESSION: No acute abnormalities . Signed by: DR Rafiq Harley M.D. on 12/07/2018 4:03 PM
--- NOTE | 2018-12-07 16:26 | Diagnostic Imaging Report ---
EXAMINATION: CHEST SINGLE (NOT PORTABLE) INDICATION: Facial droop COMPARISON: Chest radiograph 09/08/2014 FINDINGS: TUBES and LINES: None. LUNGS: The lungs are well-inflated. There is a 2.3 cm nodular opacity at the right lung base which was not present on a chest radiograph of 09/08/2014. No focal pneumonia or pulmonary edema. PLEURA: No pleural effusion or pneumothorax. HEART AND MEDIASTINUM: The cardiomediastinal silhouette is normal in size and contour. BONES AND SOFT TISSUES: No acute fracture or dislocation. UPPER ABDOMEN: No free air under the diaphragm. Hiatal hernia. IMPRESSION: Right lung base to 2.3 cm nodular opacity not previously seen on 09/08/2014 may represent a pulmonary nodule. RECOMMENDATION: Follow-up chest CT on non-urgent basis. Signed by: Muriel Hitchcock MD on 12/07/2018 4:23 PM
[2018-12-07 17:01] LABS: BASOPHILS % 0.6 % (0.0-1.0); EOSINOPHILS # (AUTO) 0.3 (0.0-0.4); EOSINOPHILS % 5.3 % (0.0-6.0); HEMATOCRIT 34.5 % (34.2-44.1); HEMOGLOBIN 10.5 g/dL (12.0-16.0); LYMPHOCYTES # (AUTO) 1.2 (1.0-3.2); LYMPHOCYTES % 22.5 % (18.0-39.1); MEAN CORPUSCULAR HEMOGLOBIN 25.7 pg (28-32); MEAN CORPUSCULAR HGB CONC 30.4 g/dL (31-35); MEAN CORPUSCULAR VOLUME 84.4 fL (81-99); MONOCYTES # (AUTO) 0.4 (0.2-0.8); MONOCYTES % 8.6 % (4.4-11.3); NEUTROPHILS # (AUTO) 3.2 (2.1-6.9); NEUTROPHILS % 62.8 % (38.7-80.0); PLATELET COUNT 329 x10e3/uL (140-360); RED BLOOD COUNT 4.09 x10e6/uL (3.6-5.1); RED CELL DISTRIBUTION WIDTH 14.6 % (11.7-14.4)
[2018-12-07 17:02] LABS: BILIRUBIN,URINE NEGATIVE (NEGATIVE); CLARITY,URINE SL CLOUDY (CLEAR); COLOR,URINE YELLOW (YELLOW); KETONES,URINE NEGATIVE (NEGATIVE); LEUKOCYTE ESTERASE ,URINE SMALL (NEGATIVE); NITRITE,URINE NEGATIVE (NEGATIVE); PROTEIN,URINE DIPSTICK NEGATIVE (NEGATIVE); URINE UROBILINOGEN 0.2 mg/dL (0.2 - 1)
[2018-12-07 17:15] LABS: INR 1.04; PARTIAL THROMBOPLASTIN TIME 30.3 seconds (23.8-35.5); PROTHROMBIN TIME 14.1 seconds (11.9-14.5)
[2018-12-07 17:17] LABS: BACTERIA,URINE MODERATE /HPF; CALCIUM OXALATE CRYSTALS,UR MODERATE (FEW); EPITHELIAL CELLS,URINE FEW /LPF; RBC,URINE 0-5 /HPF (0-5); TRANSITIONAL EPI CELLS,URINE RARE
[2018-12-07 17:23] LABS: ALANINE AMINOTRANSFERASE 11 IU/L (0-55); ALBUMIN 3.5 g/dL (3.5-5.0); ALBUMIN/GLOBULIN RATIO 0.8 (0.8-2.0); ALKALINE PHOSPHATASE 88 IU/L (40-150); ANION GAP 11.6 mmol/L (8-16); BLOOD UREA NITROGEN 16 mg/dL (7-26); BUN/CREATININE RATIO 20 (6-25); CALCIUM 9.5 mg/dL (8.4-10.2); CARBON DIOXIDE 27 mmol/L (22-29); CHLORIDE 106 mmol/L (98-107); CREATINE KINASE 71 IU/L (29-168); CREATININE, SERUM 0.79 mg/dL (0.57-1.11); EST GLOMERULAR FILTRATION RATE > 60 ML/MIN (60-); GLUCOSE 78 mg/dL (74-118); POTASSIUM 3.6 mmol/L (3.5-5.1); SODIUM 141 mmol/L (136-145)
[2018-12-07 18:29] VITALS: BP 137/69
== END 2018-12-07 18:41 | disposition home or self-care (01) ==
LOC: ER 14:28
DX: G51.0 Bell's palsy (principal)
CPT/HCPCS: 36415; 70450; 71045; 80053; 81001; 82550; 82553; 84484; 85025; 85610; 85730; 87086; 93005; 99284

== ENCOUNTER 2018-12-09 19:20 | Emergency (ER) | payer BC, OTHER ==
[~2018-12-09] VITALS: Ht 154.9 cm; Wt 81.2 kg
--- OUTSIDE RECORDS SUMMARY | 2018-12-09 19:24 | XMS REPORT | Clinical Summary ---
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
--- OUTSIDE RECORDS SUMMARY | 2018-12-09 19:24 | XMS REPORT | Clinical Summary ---
Author Author [facility] Organization [facility] Address Unknown Phone Unavailable Care Team Providers Care Supervisor Water Softener Service Name Role Phone Asked, No Pcp PCP [...] Encounters Care Team Description Date Type Specialty Olrando Temple MD Vaginal bleeding (Primary Dx); Acute pain of left knee; Medication refill; Rios cyst, left 12/08/2017 Emergency Emergency Medicine after 12/08/2017 Social History [...] 12/08/2017 W/AUTO DIFF 1:38 PM CDT after 12/08/2017 Results * PV Duplex Venous Lower Extremity [...] is no evidence of deep venous thrombosis. [facility]-[id number] Procedure Note Interface, Radiology Results Incoming - [...] is no evidence of deep venous thrombosis. [facility]-[id number] Performing Organization Address City/State/Zipcode Phone Number [facility] [address] [place] [address] * Urinalysis screen and microscopy, with reflex to culture (12/08/2017 4:37 PM CDT) Specimen site Clean catch [facility] OF PATHOLOGY AND GENOMIC MEDICINE Color, UA Yellow [facility] OF PATHOLOGY AND GENOMIC MEDICINE Appearance, UA Cloudy [facility] OF PATHOLOGY AND GENOMIC MEDICINE Specific 1.028 1.001 - 1.035 [facility] gravity, OF PATHOLOGY AND GENOMIC MEDICINE pH, UA 5.0 5.0 - 8.5 [facility] OF PATHOLOGY AND GENOMIC MEDICINE Protein, UA 1+ (A) Negative [facility] OF PATHOLOGY AND GENOMIC MEDICINE Glucose, UA Negative Negative [facility] OF PATHOLOGY AND GENOMIC MEDICINE Ketones, UA Trace (A) Negative [facility] OF PATHOLOGY AND GENOMIC MEDICINE Bilirubin, UA Negative Negative [facility] OF PATHOLOGY AND GENOMIC MEDICINE Blood, UA Large (A) Negative [facility] OF PATHOLOGY AND GENOMIC MEDICINE Nitrite, UA Negative Negative [facility] OF PATHOLOGY AND GENOMIC MEDICINE Urobilinogen, Negative <2.0 [facility] UA OF PATHOLOGY AND GENOMIC MEDICINE Leukocyte Small (A) Negative [facility] esterase, UA OF PATHOLOGY AND GENOMIC MEDICINE Epithelial Many /HPF [facility] cells, UA OF PATHOLOGY AND GENOMIC MEDICINE WBC, UA 46 (H) 0 - 5 /HPF [facility] OF PATHOLOGY AND GENOMIC MEDICINE RBC, UA >200 (H) 0 - 5 /HPF [facility] OF PATHOLOGY AND GENOMIC MEDICINE Bacteria, UA Trace None seen [facility] OF PATHOLOGY AND GENOMIC MEDICINE Yeast, UA None seen [facility] OF PATHOLOGY AND GENOMIC MEDICINE Yeast with None seen [facility] pseudohyphae, OF PATHOLOGY UA AND GENOMIC MEDICINE Calcium oxalate Few [facility] crystals, UA OF PATHOLOGY AND GENOMIC MEDICINE Specimen Urine Performing Organization Address City/Va Hospital/Zipcode Phone Number [facility] [address] [place] [address] PATHOLOGY AND [facility] MEDICINE * hCG qualitative, urine screen (12/08/2017 4:37 PM CDT) Pathologist [facility] hCG Negative Negative [facility] qualitative, Comment: OF PATHOLOGY urine The manufacturers stated AND GENOMIC sensitivity of HcG test for MEDICINE serum is >/=10 mIU/ml and urine is >/=20mIU/ml. Specimen Urine Performing Organization Address City/Va Hospital/Zipcode Phone Number [facility] [address] [place] [address] PATHOLOGY AND [facility] MEDICINE * Gram stain (12/08/2017 4:37 PM CDT) Gram stain Few WBC's [facility] result Occasional Gram positive cocci OF PATHOLOGY in pairs AND GENOMIC Occasional Gram positive rods MEDICINE Comment: Specimen Information Specimen Source: Urine Specimen Site: Clean catch Specimen Urine Performing Organization Address City/State/Zipcode Phone Number [facility] [address] [place] [address] PATHOLOGY AND GENOMIC MEDICINE * Urine culture (12/08/2017 4:37 PM CDT) Pathologist [facility] Urine culture Staphylococcus aureus [facility] isolate >10-5 cfu/ml OF PATHOLOGY This organism is Methicillin AND GENOMIC Sensitive. MEDICINE (A) Comment: Specimen Information Specimen Source: Urine Specimen Site: Clean catch Urine culture Mixed Gram positive zari [facility] isolate 10-3 cfu/ml OF PATHOLOGY [...] mcg/mL: Susceptible Staphylococcus aureus Performing Organization Address City/Va Hospital/[facility] Phone Number [facility] [address] [place] [address] PATHOLOGY AND GENOMIC MEDICINE * XR Knee 4+ Vw Left (12/08/2017 4:04 PM CDT) Specimen Narrative Performed At Procedure:XR KNEE 4VW LEFT RADIANT REFERRING PHYSICIAN: ORLANDO TEPMLE HISTORY:knee pain COMPARISON: None FINDINGS: No evidence of fracture or dislocation is seen. The joint spaces are relatively maintained. No osteolytic or osteoblastic lesion is identify. Regional soft tissue is unremarkable. No radiopaque foreign body is seen. XR KNEE 4VW LEFTacquired. IMPRESSION: No radiographic evidence of acute fracture or dislocation of the left knee. [facility]-[id number] Procedure Note Interface, Radiology Results Incoming - [...] fracture or dislocation of the left knee. [facility]-[id number] Performing Organization Address City/State/Zipcode Phone Number [facility] [address] [place] [address] * Estimated GFR (12/08/2017 1:38 PM CDT) [facility] GFR Non Af Amer 88 mL/min/1.73 m2 [facility] OF PATHOLOGY AND GENOMIC MEDICINE GFR Af Amer >90 mL/min/1.73 m2 [facility] Comment: OF PATHOLOGY Chronic kidney disease: [...] Americans. Specimen Plasma specimen Performing Organization Address City/Va Hospital/Zipcode Phone Number [place] [address] [place] [address] PATHOLOGY AND GENOMIC MEDICINE * CBC with platelet and differential (12/08/2017 1:38 PM CDT) [facility] WBC 7.9 4.2 - 11.0 k/uL [facility] OF PATHOLOGY AND GENOMIC MEDICINE RBC 3.70 (L) 4.04 - 5.86 m/uL [facility] OF PATHOLOGY AND GENOMIC MEDICINE HGB 10.5 (L) 11.5 - 15.3 g/dL [facility] OF PATHOLOGY AND GENOMIC MEDICINE HCT 33.3 (L) 34.0 - 45.0 % [facility] OF PATHOLOGY AND GENOMIC MEDICINE MCV 90.0 80.0 - 98.0 fL [facility] OF PATHOLOGY AND GENOMIC MEDICINE MCH 28.4 27.0 - 34.0 pg [facility] OF PATHOLOGY AND GENOMIC MEDICINE MCHC 31.5 31.5 - 36.5 g/dL [facility] OF PATHOLOGY AND GENOMIC MEDICINE RDW - SD 43.5 37.0 - 51.0 fL [facility] OF PATHOLOGY AND GENOMIC MEDICINE MPV 9.4 7.4 - 10.4 fL [facility] OF PATHOLOGY AND GENOMIC MEDICINE Platelet count 409 (H) 150 - 400 k/uL [facility] OF PATHOLOGY AND GENOMIC MEDICINE Nucleated RBC 0.00 /100 WBC [facility] OF PATHOLOGY AND GENOMIC MEDICINE Neutrophils 74.4 (H) 36.0 - 66.0 % [facility] OF PATHOLOGY AND GENOMIC MEDICINE Lymphocytes 13.4 (L) 24.0 - 44.0 % [facility] OF PATHOLOGY AND GENOMIC MEDICINE Monocytes 7.8 (H) 0.0 - 6.0 % [facility] OF PATHOLOGY AND GENOMIC MEDICINE Eosinophils 3.5 0.0 - 6.0 % [facility] OF PATHOLOGY AND GENOMIC MEDICINE Basophils 0.5 0.0 - 1.2 % [facility] OF PATHOLOGY AND GENOMIC MEDICINE Immature 0.4 0.0 - 1.0 % [facility] granulocytes OF PATHOLOGY AND GENOMIC MEDICINE Specimen Blood Performing Organization Address City/Va Hospital/[place] [address] PATHOLOGY AND GENOMIC MEDICINE * Type and screen (12/08/2017 1:38 PM CDT) ABO grouping A [facility] OF PATHOLOGY AND GENOMIC MEDICINE Rh type NEG [facility] OF PATHOLOGY AND GENOMIC MEDICINE Antibody screen NEG [facility] (gel) OF PATHOLOGY AND GENOMIC MEDICINE Specimen Blood Performing Organization Address City/[facility] Hospital/[place] [address] PATHOLOGY AND [facility] MEDICINE * Comprehensive metabolic panel (12/08/2017 1:38 PM CDT) Sodium 138 135 - 150 mEq/L [facility] OF PATHOLOGY AND GENOMIC MEDICINE Potassium 4.7 3.5 - 5.0 mEq/L [facility] OF PATHOLOGY AND GENOMIC MEDICINE Chloride 100 98 - 112 mEq/L [facility] OF PATHOLOGY AND GENOMIC MEDICINE CO2 30 24 - 31 mmol/L [facility] OF PATHOLOGY AND GENOMIC MEDICINE Anion gap 8@ANIO 7 - 15 mEq/L [facility] OF PATHOLOGY AND GENOMIC MEDICINE BUN 8 7 - 18 mg/dL [facility] OF PATHOLOGY AND GENOMIC MEDICINE Creatinine 0.70 0.50 - 0.90 mg/dL [facility] OF PATHOLOGY AND GENOMIC MEDICINE Glucose 118 (H) 65 - 100 mg/dL [facility] OF PATHOLOGY AND GENOMIC MEDICINE Calcium 9.7 8.3 - 10.2 mg/dL [facility] OF PATHOLOGY AND GENOMIC MEDICINE Protein 8.4 (H) 6.3 - 8.3 g/dL [facility] OF PATHOLOGY AND GENOMIC MEDICINE Albumin 3.3 (L) 3.5 - 5.0 g/dL [facility] OF PATHOLOGY AND GENOMIC MEDICINE A/G ratio 0.6 (L) 0.7 - 3.8 [facility] OF PATHOLOGY AND GENOMIC MEDICINE Alkaline 80 0 - 104 U/L [facility] phosphatase OF PATHOLOGY AND GENOMIC MEDICINE AST 20 10 - 35 U/L [facility] OF PATHOLOGY AND GENOMIC MEDICINE ALT 10 5 - 50 U/L [facility] OF PATHOLOGY AND GENOMIC MEDICINE Total bilirubin 0.3 0.2 - 1.2 mg/dL [facility] OF PATHOLOGY AND GENOMIC MEDICINE Specimen Plasma specimen Performing Organization Address City/State/Zipcode Phone Number [facility] [place] [address] PATHOLOGY AND GENOMIC MEDICINE after 12/08/2017 Insurance Type Payer Benefit Subscriber ID Effective Phone Address Plan / Dates Group HMO/PPO [facility] xxxxxxxxx 2017-P [address] CHOICE/CHO ICE + Liability Advance Directives Patient has advance care planning documents on file. For more information, lester armendariz contact: All [employer] [place] [address]
--- OUTSIDE RECORDS SUMMARY | 2018-12-09 19:24 | XMS REPORT | Continuity of Care Document ---
Author Author [employer] Organization [employer] Address Unknown Phone Unavailable Care Team Providers Care Eye Technician Name Role Phone [employer] Unavailable Unavailable Problems Problem Status Onset Date Classification Date Reported Comments Source Villonodular synovitis , left knee 06/04/2018 11/14/2018 [facility] UNK Active 03/31/2018 [facility] KNEE ARTHROSCOPY Active 03/31/2018 [facility] Pain in left knee 03/04/2018 09/15/2018 [facility] [place] Discharge Diagnosis: Effusion, left knee 04/13/2017 04/16/2017 [facility] LEFT LEG PAIN Active 04/13/2017 [facility] Discharge Diagnosis: Pain and swelling of left knee 04/11/2017 04/14/2017 [facility] LEG PAIN Active 04/11/2017 [facility] LT KNEE Active 03/19/2017 [facility] [place] Discharge Diagnosis: Viral URI 11/24/2016 11/27/2016 [facility] SOB Active 11/24/2016 [facility] Discharge Diagnosis: Pain 11/05/2015 11/08/2015 [facility] LEFT SIDE PAIN Active 11/05/2015 [facility] Discharge Diagnosis: Chest pain 11/03/2014 11/06/2014 [facility] Discharge Diagnosis: Cough 11/03/2014 11/06/2014 [facility] CHEST PAIN/CONGESTION Active 11/03/2014 [facility] Discharge Diagnosis: Bronchitis 06/20/2014 06/22/2014 [facility] Discharge Diagnosis: Pneumonia 06/20/2014 06/22/2014 [facility] COUGH Active 06/20/2014 [facility] Effusion, left knee 09/15/2018 [facility] Pain in left wrist 09/15/2018 [facility] Pain in right wrist 09/15/2018 [facility] Localized edema 09/15/2018 [facility] Other tear of lateral meniscus, current injury, left knee, initial encounter 11/14/2018 [facility] Chondromalacia patellae, left knee 11/14/2018 [facility] Unspecified urinary incontinence 11/14/2018 [facility] long-term use of antibiotics 11/14/2018 [facility] Exposure to other specified factors, initial encounter 11/14/2018 [place] Bronchitis Resolved Problem 11/14/2018 [facility], [facility] [place],[facility] [place] Cholecystitis Resolved Problem 11/14/2018 [facility], [facility] [place],[facility] [place] Effusion, left knee Active Problem 11/14/2018 [facility], [facility] [place],[facility] [place] Acute pain of left knee Active 11/05/[address] [facility] Medications Medication Details Route Status Patient Instructions Ordering Provider Order Date Source 72 HR Scopolamine 0.0139 MG/HR Transdermal Patch 1 patch, Route: TOP, Drug Form: ERFILM, Dosing Weight 73.636, kg, ONCE, Start date: 04/27/18 15:23:00 [employer], Stop date: 04/27/18 15:23:00 CSTNotes: Change patch every 72 hours (Same as: Transderm-Scop) Inactive 04/27/2018 [facility] Dexamethasone 4 mg, 1 mL, Route: IV, Drug form: INJ, ONCE, Dosing Weight 73.636, kg, Start date: 04/27/18 15:22:00 [employer]ARM [employer], Stop date: 04/27/18 15:22:00 CSTNotes: Concentration: 4mg/ml Inactive 04/27/2018 [facility] Phenergan 12.5 mg, 0.5 mL, Route: IM, Drug form: INJ, ONCE, Dosing Weight 73.636, kg, Start date: 04/27/18 15:22:00 [employer]ARM [employer], Stop date: 04/27/18 15:22:00 CSTNotes: Do not give IV push. (Same as: Phenergan) Inactive 04/27/2018 [facility] Tramadol 50 mg, 1 tab, Route: PO, Drug form: TAB, Q6H, Dosing Weight 73.636, kg, PRN Pain Score 1-3, Start date: 04/27/18 15:03:00 [employer]ARM [employer], Duration: 30 day, Stop date: 05/27/18 15:02:00 CSTNotes: Not to exceed 4 00mg/day. (Same As: Ultram) Inactive 04/27/2018 [facility] Acetaminophen 325 MG / Hydrocodone Bitartrate 10 MG Oral Tablet 1 tab, Route: PO, Drug Form: TAB, Dosing Weight 73.636, kg, Q4H, PRN Pain Score 4-6, Start date: 04/27/18 15:03:00 [employer]ARM [employer]GER, Duration: 30 day, Stop date: 05/27/18 15:02:00 CSTNotes: Do not exceed 4gm/day of acetaminophen. (Same as: [place] 325/10) Inactive 04/27/2018 [facility] acetaminophen (ANES) Route: IV, Drug form: INJ, ONCE, Stop date: 04/27/18 14:17:00 [employer]ARM [employer]NAGER Inactive 04/27/2018 [facility] glycopyrrolate (ANES) Route: IV, Drug form: INJ, ONCE, Stop date: 04/27/18 14:17:00 [employer]ARM MANAGER Inactive 04/27/2018 [facility] neostigmine (ANES) Route: IV, Drug form: INJ, ONCE, Stop date: 04/27/18 14:17:00 [employer]ARM MANAGER Inactive 04/27/2018 [facility] rocuronium (ANES) Route: IV, Drug form: INJ, ONCE, Stop date: 04/27/18 14:14:00 [employer]ARM MANAGER Inactive 04/27/2018 [facility] metoprolol (ANES) Route: IV, Drug form: INJ, ONCE, Stop date: 04/27/18 14:04:00 P[employer]ARM MANAGER Inactive 04/27/2018 [facility] hydromorphone (ANES) Route: IV, Drug form: INJ, ONCE, Stop date: 04/27/18 12:59:00 P[employer]ARM MANAGER Inactive 04/27/2018 [facility] ondansetron (ANES) Route: IV, Drug form: INJ, ONCE, Stop date: 04/27/18 12:34:00 P[employer] FARM MANAGER Inactive 04/27/2018 [facility] ceFAZolin (ANES) Route: IV, Drug form: INJ, ONCE, Stop date: 04/27/18 12:34:00 P[employer] FARM MANAGER Inactive 04/27/2018 [facility] propofol (ANES) Route: IV, Drug form: INJ, ONCE, Stop date: 04/27/18 12:34:00 P[employer] FARM MANAGER Inactive 04/27/2018 [facility] fentaNYL (ANES) Route: IV, Drug form: INJ, ONCE, Stop date: 04/27/18 12:34:00 P[employer] FARM MANAGER Inactive 04/27/2018 [facility] dexamethasone (ANES) Route: IV, Drug form: INJ, ONCE, Stop date: 04/27/18 12:34:00 P[employer] FARM MANAGER Inactive 04/27/2018 [facility] lidocaine (ANES) Route: IV, Drug form: INJ, ONCE, Stop date: 04/27/18 12:34:00 P[employer]ARM MANAGER Inactive 04/27/2018 [facility] midazolam (ANES) Route: IV, Drug form: SOLN, ONCE, Stop date: 04/27/18 12:19:00 P[employer] FARM MANAGER Inactive 04/27/2018 [facility] Lactated Ringers Injection IV (ANES) 1000 mL Route: IV, Total Volume: 1,000, Start date: 04/27/18 11:44:00 P[employer]ARM MANAGER, Stop date: 04/27/18 12:44:00 P[employer]ARM MANAGER Inactive 04/27/2018 [facility] Vancomycin 1,250 mg, Route: IV, ONCE, Dosing Weight 73.636, kg, Start date: 04/27/18 7:55:00 [employer]ARM MANAGER, Stop date: 04/27/18 7:55:00 P[employer]ARM MANAGER, ABX Indication: Surgical ProphylaxisNotes: TIME CRITICAL MEDICATION (Same As: Vanc ocin) Infusion rate 2001 mg: infuse over 2.5 hours For adult patients only: Round to nearest 250 mg per Medical Staff approval MEDICATION WASTE Product Size: 1000 mg Product Wasted: ___ mg Inactive 04/27/2018 [facility] Calcium Chloride 0.0014 MEQ/ML / Potassium Chloride 0.004 MEQ/ML / Sodium Chloride 0.103 MEQ/ML / Sodium Lactate 0.028 MEQ/ML Injectable Solution 1,000 mL, Rate: 25 ml/hr, Infuse over: 40 hr, Route: IV, Dosing Weight 73.636 kg, Total Volume: 1,000, Start date: 04/27/18 7:54:00 [employer]ARM MANAGER, Duration: 30 day, Stop date: 05/27/18 7:53:00 P[employer]ARM MANAGER, 1.81, m2 Inactive 04/27/2018 [facility] ceFAZolin + Sodium Chloride 0.9% IV 100 mL 2 gm, Route: IVPB, ONCALL, Start date: 04/27/18 6:00:00 [employer]ARM MANAGER, Duration: 1 doses or times, Stop date: 04/27/18 12:00:00 [employer]ARM MANAGER, ABX Indication: Surgical ProphylaxisNotes: (Same As: Sweta Goldmanzosuman) MEDICATION WASTE Product Size: 1000 mg Product Wasted: ___ mg Inactive 04/27/2018 [facility] Albuterol 0.83 MG/ML Inhalant Solution 2.49 mg, 3 mL, Route: NEB, Drug form: SOLN, Q20Min, Dosing Weight 73.636, kg, PRN Wheezing, Priority: STAT, Start date: 04/26/18 8:11:00 [employer]ARM [employer]NAGER, Duration: 30 day, Stop date: 05/26/18 8:10:00 CSTNotes: SEE RT DOCUMENTATION (Same as: Proventil) No Longer Active 04/26/2018 [facility] Diphenhydramine 12.5 mg, 0.25 mL, Route: IVP, Drug form: INJ, Q6H, Dosing Weight 73.636, kg, PRN Itching, Start date: 04/26/18 8:11:00 [employer]ARM MANAGER, Duration: 30 day, Stop date: 05/26/18 8:10:00 CSTNotes: (Same as: Benadryl) No Longer Active 04/26/2018 [facility] Ondansetron 4 mg, 2 mL, Route: IVP, Drug form: INJ, ONCE, Dosing Weight 73.636, kg, PRN Nausea & Vomiting, Start date: 04/26/18 8:11:00 CSTNotes: (Same as: Zofran) MEDICATION WASTE Product Size: 4 mg Product Wasted: ___ mg No Longer Active 04/26/2018 [facility] Meperidine 12.5 mg, 0.5 mL, Route: IVP, Drug form: INJ, Q30Min, Dosing Weight 73.636, kg, PRN Other -See Comment, For shivering, Start date: 04/26/18 8:11:00 P[employer] FARM MANAGER, Duration: 2 doses or times, Stop date: Limited # of timesNotes: (Same as: Demerol) "Use Precaution in Elderly, Seizure disorders, and Renal impairment" No Longer Active 04/26/2018 [facility] Naloxone 0.1 mg, 0.25 mL, Route: SUB-Q, Drug form: INJ, Q6H, Dosing Weight 73.636, kg, PRN Itching, Start date: 04/26/18 8:11:00 P[employer] FARM MANAGER, Duration: 30 day, Stop date: 05/26/18 8:10:00 CSTNotes: Same as Narcan No Longer Active 04/26/2018 [facility] Morphine 4 mg, 1 mL, Route: IVP, Drug form: SOLN, Q5Min, Dosing Weight 73.636, kg, PRN Pain Score 7-10, Start date: 04/26/18 8:11:00 P[employer] FARM MANAGER, Duration: 3 doses or times, Stop date: Limited # of timesNotes: (Same as:MORPhine Sulfate) No Longer Active 04/26/2018 [facility] Hydromorphone 0.5 mg, 0.5 mL, Route: IVP, Drug form: INJ, Q5Min, Dosing Weight 73.636, kg, PRN Pain Score 7-10, Start date: 04/26/18 8:11:00 PIG FARM MANAGER, Duration: 4 doses or times, Stop date: Limited # of timesNotes: Frandy e as: Dilaudid No Longer Active 04/26/2018 [facility] Fentanyl 50 microgram, 1 mL, Route: IVP, Drug form: INJ, Q5Min, Dosing Weight 73.636, kg, PRN Pain Score 7-10, Priority: Routine, Start date: 04/26/18 8:11:00 P[employer] FARM MANAGER, Duration: 2 doses or times, Stop date: Limited # of timesNotes: (Same as: Sublimaze) Preservative free. No Longer Active 04/26/2018 [facility] Oxycodone 10 mg, 10 mL, Route: NG, Drug form: LIQ, Q4H, Dosing Weight 73.636, kg, PRN Pain Score 7-10, Start date: 04/26/18 8:11:00 P[employer] FARM MANAGER, Duration: 30 day, Stop date: 05/26/18 8:10:00 CSTNotes: (Same as: 'Roxic odone) No Longer Active 04/26/2018 [facility] Flumazenil 0.2 mg, 2 mL, Route: IVP, Drug form: INJ, PRN, Dosing Weight 73.636, kg, PRN Benzodiazepine Reversal, Initial dose, Start date: 04/26/18 8:11:00 P[employer] FARM MANAGER, Duration: 30 day, Stop date: 05/26/18 8:10:00 P[employer] FARM MANAGER Notes: (Same as: Romazicon) No Longer Active 04/26/2018 [facility] Acetaminophen 1,000 mg, 100 mL, Route: IVPB, Drug form: INJ, ONCE, Dosing Weight 73.636, kg, PRN Pain Score 1-3, Start date: 04/26/18 8:11:00 CSTNotes: Infuse over 15 minutes Do not exceed 4gm/day of acetaminophen MEDICATION WASTE Product Size: 1000 mg Product Wasted: ___ mg No Longer Active 04/26/2018 [facility] Ketorolac 30 mg, 1 mL, Route: IVP, Drug form: INJ, ONCE, Dosing Weight 73.636, kg, Start date: 04/26/18 8:11:00 P[employer] FARM MANAGER, Stop date: 04/26/18 8:11:00 CSTNotes: (Same as:Toradol) IV bolus must be given >15 seconds. Give IM administration slowly and deeply into the muscle. Not for use > 4 days MEDICATION WASTE Product Size: 30 mg Product Wasted: ___ mg No Longer Active 04/26/2018 [facility] Hydralazine 10 mg, 0.5 mL, Route: IVP, Drug form: INJ, Q20Min, Dosing Weight 73.636, kg, PRN Elevated BP, Start date: 04/26/18 8:11:00 P[employer] FARM MANAGER, Duration: 2 doses or times, Stop date: Limited # of timesNotes: (Same as: Apresoline) Push over 5 minutes No Longer Active 04/26/2018 [facility] Labetalol 10 mg, 2 mL, Route: IVP, Drug form: INJ, Q5Min, Dosing Weight 73.636, kg, PRN Elevated BP, Start date: 04/26/18 8:11:00 PIG FARM MANAGER, Duration: 5 doses or times, Stop date: Limited # of timesNotes: (Same as: Nor modyne, Trandate) Push over 2 minutes Give bolus over 2-3 minutes. No Longer Active 04/26/2018 [facility] esmolol 10 mg, 1 mL, Route: IVP, Drug form: INJ, Q5Min, Dosing Weight 73.636, kg, PRN Other -See Comment, Start date: 04/26/18 8:11:00 P[employer] FARM MANAGER, Duration: 5 doses or times, Stop date: Limited # of timesNotes: (Same as: Brevibloc) No Longer Active 04/26/2018 [facility] amoxicillin 500 mg oral capsule 500 mg=1 cap, PO, TID, 0 Refill(s) Active 04/16/2018 [facility] ketorolac (TORADOL) 60 mg/2 mL injection 60 mg Intramuscular Inactive 01/30/[address] [facility] Ketorolac 60 Mg/2 Ml Intramuscular Solution Intramuscular Inactive 01/30/[address] [facility] Ketorolac 60 Mg/2 Ml Intramuscular Solution Intramuscular Inactive 01/30/[address] [facility] indomethacin (INDOCIN) 50 mg capsule Take 1 capsule by mouth 2 times daily as needed for Pain. Oral Active 01/30/[address] [facility] Indomethacin 50 Mg Capsule Take 1 capsule by mouth 2 times daily as needed for Pain. Oral Active 01/30/[address] [facility] Ondansetron 4 MG Disintegrating Tablet [Zofran] 4 mg=1 tab, PO, BID, PRN Nausea and Vomiting, Dissolve tab under tongue, # 10 tab, 0 Refill(s) Active 04/14/2017 [facility] Motrin 600 mg oral tablet 600 mg=1 tab, PO, Q6H, PRN Pain, take with food, # 30 tab, 0 Refill(s) No Longer Active 04/14/2017 [facility] tramadol hydrochloride 50 MG Oral Tablet 50 mg=1 tab, PO, BID, X 15 day, # 30 tab, 0 Refill(s) Active 04/14/2017 [facility] Zofran ODT 4 mg, Route: PO, Drug form: TABDIS, ONCE, Dosing Weight 80, kg, Priority: STAT, Start date: 04/13/17 17:33:00 P[employer]ARM [employer]NAGER, Stop date: 04/13/17 17:33:00 P[employer]ARM MANAGER Inactive 04/13/2017 [facility] Acetaminophen 325 MG / Hydrocodone Bitartrate 5 MG Oral Tablet [[place] 5/325] 2 tab, Route: PO, Drug Form: TAB, Dosing Weight 80, kg, ONCE, STAT, Start date: 04/13/17 17:33:00 PIG FARM MANAGER, Stop date: 04/13/17 17:33:00 PIG FARM MANAGER Inactive 04/13/2017 [facility] tramadol hydrochloride 50 MG Oral Tablet [Ultram] 50 mg=1 tab, PO, Q4H, PRN pain, X 3 day, # 20 tab, 0 Refill(s) Active 04/12/2017 [facility] Acetaminophen 325 MG / Hydrocodone Bitartrate 10 MG Oral Tablet [[place] 10/325] 1 tab, Route: PO, Drug Form: TAB, Dosing Weight 80, kg, ONCE, STAT, Start date: 04/11/17 17:47:00 PIG FARM MANAGER, Stop date: 04/11/17 17:47:00 CSTNotes: Do not exceed 4gm/day of acetaminophen. (Same as: [place] 325/10) Inactive 04/11/2017 [facility] Albuterol 0.83 MG/ML Inhalant Solution 2.49 mg=3 mL, NEB, Q6H, PRN as needed for shortness of breath, # 120 ea, 3 Refill(s) Active 11/24/2016 [facility] GI cocktail 30 mL, Route: PO, Drug Form: SUSP, Dosing Weight 77.273, kg, ONCE, STAT, Start date: 11/24/16 5:57:00 CDT, Stop date: 11/24/16 5:57:00 CDTNotes: G.I. Cocktail=antacid with simethicone 22.5 mL - lidocaine viscous 7.5 mL Inactive 11/24/2016 [facility] Dexamethasone 10 mg, Route: IVP, ONCE, Dosing Weight 77.273, kg, Priority: STAT, Start date: 11/24/16 5:57:00 CDT, Stop date: 11/24/16 5:57:00 CDT Inactive 11/24/2016 [facility] Acetaminophen 300 MG / Codeine Phosphate 30 MG Oral Tablet [Tylenol with Codeine #3] 1 - 2 tab, PO, Q6H, PRN Pain, X 4 day, # 24 tab, 0 Refill(s) Inactive 11/24/2016 [facility] Saline Flush 0.9% 10 mL, Route: IVP, Drug Form: INJ, Dosing Weight 77.273, kg, PRN, PRN Line Flush, Start date: 11/24/16 4:11:00 CDT, Duration: 30 day, Stop date: 12/24/16 4:10:00 CDTNotes: (Same as: BD Posiflush) Inactive 11/24/2016 [facility] Ibuprofen 800 mg, Route: PO, Drug form: TAB, ONCE, Dosing Weight 78.182, kg, Priority: STAT, Start date: 11/05/15 12:43:00 CDT, Stop date: 11/05/15 12:43:00 CDT Inactive 11/05/2015 [facility] Cyclobenzaprine hydrochloride 5 MG Oral Tablet [Flexeril] 5 mg=1 tab, PO, TID, X 7 day, # 21 tab, 0 Refill(s) Active 11/05/2015 [facility] Naproxen 500 MG Oral Tablet [Naprosyn] 500 mg=1 tab, PO, BID, # 60 tab, 0 Refill(s) Active 11/05/2015 [facility] 200 ACTUAT Albuterol 0.09 MG/ACTUAT Metered Dose Inhaler 2 puff, INHALATION, QID, PRN for wheezing, # 25 gm, 0 Refill(s) Active 11/03/2014 [facility] predniSONE 20 mg oral tablet 60 mg=3 tab, PO, Daily, Take 3 tablets for 60 mg dose, X 3 day, # 9 tab, 0 Refill(s)Special Instructions: Take 3 tablets for 60 mg dose Active 11/03/2014 [facility] homatropine methylbromide 0.3 MG/ML / Hydrocodone Bitartrate 1 MG/ML Oral Solution [Hycodan] 5 ml, PO, Q4H, PRN for cough, X 14 day, # 420 mL, 0 Refill(s) Active 11/03/2014 [facility] homatropine methylbromide 0.3 MG/ML / Hydrocodone Bitartrate 1 MG/ML Oral Solution [Hycodan] 5 mL, Route: PO, Dosing Weight 78.182, kg, Q4H, Start date: 11/03/14 12:00:00, Duration: 30 day, Stop date: 12/03/14 8:00:00 Inactive 11/03/2014 [facility] homatropine methylbromide 0.3 MG/ML / Hydrocodone Bitartrate 1 MG/ML Oral Solution 5 mL, Route: PO, Dosing Weight 78.182, kg, Q4H, Start date: 11/03/14 12:00:00, Duration: 30 day, Stop date: 12/03/14 8:00:00 Inactive 11/03/2014 [facility] homatropine methylbromide 0.3 MG/ML / Hydrocodone Bitartrate 1 MG/ML Oral Solution [Hycodan] 5 mL, Route: PO, Dosing Weight 78.182, kg, ONCE, Start date: 11/03/14 11:02:00, Stop date: 11/03/14 11:02:00 Inactive 11/03/2014 [facility] Dexamethasone 10 mg, Route: IM, ONCE, Dosing Weight 78.182, kg, Priority: STAT, Start date: 11/03/14 10:42:00, Stop date: 11/03/14 10:42:00 Inactive 11/03/2014 [facility] Albuterol 0.833 MG/ML / Ipratropium [place] 0.167 MG/ML Inhalant Solution [DuoNeb] 3 ml, Route: INHALATION, Drug Form: SOLN, Dosing Weight 78.182, kg, PRN, PRN Respiratory Protocol, Start date: 11/03/14 10:28:00, Duration: 30 day, Stop date: 12/03/14 10:27:00Notes: (Same as: Duoneb) Inactive 11/03/2014 [facility] albuterol CFC free 90 mcg/inh inhalation aerosol with adapter 2 puff, INHALATION, Q4H, for wheezing, # 9 gm, 0 Refill(s) Active 06/20/2014 [facility] Levofloxacin 750 MG Oral Tablet [Levaquin] 750 mg=1 tab, PO, Q24H, # 10 tab, 0 Refill(s) Active 06/20/2014 [facility] Prednisone 60 mg, Route: PO, Drug form: TAB, ONCE, Dosing Weight 78.182, kg, Priority: STAT, Start date: 06/20/14 4:47:00, Stop date: 06/20/14 4:47:00 Inactive 06/20/2014 [facility] Levaquin 750 mg, 1 tab, Route: PO, Drug form: TAB, ONCE, Dosing Weight 78.182, kg, Start date: 06/20/14 4:47:00, Stop date: 06/20/14 4:47:00Notes: Do not give w/antacids, dairy pdt & minerals Take 1 hr before or 2 hr after dairy products Inactive 06/20/2014 [facility] Albuterol 0.83 MG/ML Inhalant Solution 2.49 mg, 3 mL, Route: NEB, Drug form: SOLN, Q15Min, Dosing Weight 78.182, kg, Priority: STAT, Start date: 06/20/14 4:47:00, Duration: 2 doses or times, Stop date: 06/20/14 5:02:00Notes: SEE RT DOCUMENTATION (Same as: Proventil) Inactive 06/20/2014 [facility] Ketorolac 60 mg, Route: IM, Drug form: INJ, ONCE, Dosing Weight 78.182, kg, Priority: STAT, Start date: 06/20/14 4:46:00, Stop date: 06/20/14 4:46:00 Inactive 06/20/2014 [facility] Albuterol 0.833 MG/ML / Ipratropium [place] 0.167 MG/ML Inhalant Solution [DuoNeb] 3 ml, Route: INHALATION, Drug Form: SOLN, Dosing Weight 78.182, kg, PRN, PRN Respiratory Protocol, Start date: 06/20/14 4:46:00, Duration: 30 day, Stop date: 07/20/14 4:45:00Notes: (Same as: Duoneb) Inactive 06/20/2014 [facility] Allergies, Adverse Reactions, Alerts Substance Category Reaction Severity Reaction type Status Date Reported Comments Source No Known Medication Allergies Assertion Drug allergy [facility] Immunizations No Data Provided for This Section Results Order Name Results Value Reference Range Date Interpretation Comments Source URINE CHEM U Preg Negative (04/27/18 9:55 AM) Negative 04/27/2018 [facility] RAPID Grp A Strep Scr Negative (11/24/16 4:36 AM) Negative 11/24/2016 [facility] CARDIAC ENZYMES CK MB 0.9 0.5 - 3.6 11/24/2016 [facility] CARDIAC ENZYMES BNP 7 <=100 pg/mL 11/24/2016 [facility] CARDIAC ENZYMES Troponin-I <0.02 0.00 - 0.40 11/24/2016 [facility] CARDIAC ENZYMES Total CK 149 12 - 191 11/24/2016 [facility] CARDIAC ENZYMES CK MB Index 0.6 0.0 - 2.5 11/24/2016 [facility] ELECTROLYTES AGAP 10.5 10.0 - 20.0 11/24/2016 [facility] ELECTROLYTES Bili Total 0.4 0.2 - 1.3 11/24/2016 [facility] ELECTROLYTES B/C Ratio 17 6 - 25 11/24/2016 [facility] ELECTROLYTES eGFR 101 11/24/2016 Result Comment: [...] should be multiplied by the estimated BMI. [facility] ELECTROLYTES A/G Ratio 0.9 0.7 - 1.6 11/24/2016 [facility] ELECTROLYTES Globulin 3.9 2.7 - 4.2 11/24/2016 [facility] ELECTROLYTES Potassium Lvl 3.5 3.5 - 5.1 11/24/2016 [facility] ELECTROLYTES ALT 16 0 - 65 11/24/2016 [facility] ELECTROLYTES Albumin Lvl 3.4 3.5 - 5.0 11/24/2016 [facility] ELECTROLYTES Total Protein 7.3 6.4 - 8.4 11/24/2016 [facility] ELECTROLYTES Calcium Lvl 8.9 8.5 - 10.5 11/24/2016 [facility] ELECTROLYTES CO2 27 24 - 32 11/24/2016 [facility] ELECTROLYTES Chloride Lvl 104 95 - 109 11/24/2016 [facility] ELECTROLYTES Sodium Lvl 138 135 - 145 11/24/2016 [facility] ELECTROLYTES Glucose Lvl 93 70 - 99 11/24/2016 [facility] ELECTROLYTES Creatinine Lvl 0.69 0.50 - 1.40 11/24/2016 [facility] ELECTROLYTES BUN 12 7 - 22 11/24/2016 [facility] ELECTROLYTES Alk Phos 87 39 - 136 11/24/2016 [facility] ELECTROLYTES AST 17 0 - 37 11/24/2016 [facility] ENDOCRINOLOGY S Preg Negative *NA* (11/24/16 4:32 AM) Negative 11/24/2016 [facility] HEMATOLOGY PTT 33.0 22.9 - 35.8 11/24/2016 [facility] HEMATOLOGY PT 14.2 12.0 - 14.7 11/24/2016 [facility] HEMATOLOGY INR 1.08 0.85 - 1.17 11/24/2016 [facility] RBC 3.85 4.20 - 5.40 11/24/2016 [facility] Hgb 9.4 12.0 - 16.0 11/24/2016 [facility] WBC 7.0 3.7 - 10.4 11/24/2016 [facility] MCH 24.4 27.0 - 31.0 11/24/2016 [facility] Hct 29.3 36.0 - 48.0 11/24/2016 [facility] RDW 16.8 11.5 - 14.5 11/24/2016 [facility] MCHC 32.0 32.0 - 36.0 11/24/2016 [facility] MCV 76.2 80.0 - 98.0 11/24/2016 [facility] MPV 8.0 7.4 - 10.4 11/24/2016 [facility] Platelet 360 133 - 450 11/24/2016 [facility] Eosinophils # 0.4 0.0 - 0.5 11/24/2016 [facility] Lymphocytes # 1.2 1.0 - 5.5 11/24/2016 [facility] Monocytes # 0.6 0.0 - 0.8 11/24/2016 [facility] Microcyte 1+ *ABN* (11/24/16 4:32 AM) None Seen 11/24/2016 [facility] Basophils # 0.1 0.0 - 0.2 11/24/2016 [facility] Basophils 0.9 0.0 - 1.0 11/24/2016 [facility] Segs-Bands # 4.9 1.5 - 8.1 11/24/2016 [facility] Eosinophils 5.1 0.0 - 4.0 11/24/2016 [facility] Monocytes 7.9 2.0 - 12.0 11/24/2016 [facility] Segs 69.3 45.0 - 75.0 11/24/2016 [facility] Lymphocytes 16.8 20.0 - 40.0 11/24/2016 [facility] Pathology Reports No Data Provided for [...] underlying bony abnormality. [place] SECTION: ER 04/13/2017 [facility] Knee series 3 views DX Exam: [...] 2. Moderate suprapatellar effusion SL: [id number] 04/11/2017 [facility] 1view DX Clinical Indication: - cough; Comparison: 11/03/2014 Technique: X-ray chest frontal projection FINDINGS: There is no consolidation, pleural effusion or pneumothorax. The heart is normal in size. The mediastinum and holly are unremarkable. The visualized bones and soft tissues are within normal limits. IMPRESSION: No chest radiographic evidence of acute cardiopulmonary disease. SL: [id number] 11/24/2016 [facility] 2 views DX PA and LATERAL [...] cholecystectomy. Coding: Chest 2 views CPT Code: 36970 SL: 13 Bharath Calderon M.D. 11/03/2014 [facility] Consultation Notes No Data Provided for This Section Discharge Summaries No Data Provided for This Section History and Physicals No Data Provided for This Section Vital Signs Vital Sign Value Date Comments Source Systolic (mm Hg) 155 04/27/2018 [facility] Diastolic (mm Hg) 75 04/27/2018 [facility] Respitory Rate 16 04/27/2018 [facility] Systolic (mm Hg) 155 04/27/2018 [facility] Diastolic (mm Hg) 75 04/27/2018 [facility] Respitory Rate 17 04/27/2018 [facility] Systolic (mm Hg) 157 04/27/2018 [facility] Diastolic (mm Hg) 77 04/27/2018 [facility] Respitory Rate 15 04/27/2018 [facility] Temperature Oral (F) 98.1 F 04/16/2018 [facility] Heart Rate 64 04/16/2018 [facility] BMI Calculated 30.67 04/16/2018 [facility] Weight 73.636 04/16/2018 [facility] Height 154.94 cm 04/16/2018 [facility] Systolic (mm Hg) 144 01/30/[address] [facility] Diastolic (mm Hg) 65 01/30/[address] [facility] Heart Rate 73 01/30/[address] [facility] Temperature Oral (F) 36.61 Mikayla 01/30/[address] [facility] Respitory Rate 16 01/30/[address] [facility] Height 152.4 cm 01/30/[address] [facility] Weight 72.303 01/30/[address] [facility] BMI Calculated 31.13 01/30/[address] [facility] Respitory Rate 20 04/14/2017 [facility] Heart Rate 63 04/14/2017 [facility] Systolic (mm Hg) 129 04/14/2017 [facility] Diastolic (mm Hg) 80 04/14/2017 [facility] Temperature Oral (F) 98.3 F 04/14/2017 [facility] Respitory Rate 18 04/14/2017 [facility] Systolic (mm Hg) 136 04/14/2017 [facility] Diastolic (mm Hg) 84 04/14/2017 [facility] Heart Rate 88 04/14/2017 [facility] Temperature Oral (F) 98.0 F 04/13/2017 [facility] Heart Rate 91 04/13/2017 [facility] Respitory Rate 18 04/13/2017 [facility] Systolic (mm Hg) 141 04/13/2017 [facility] Diastolic (mm Hg) 85 04/13/2017 [facility] Systolic (mm Hg) 122 04/12/2017 [facility] Diastolic (mm Hg) 81 04/12/2017 [facility] Temperature Oral (F) 98.1 F 04/12/2017 [facility] Respitory Rate 17 04/12/2017 [facility] BMI Calculated 33.32 04/11/2017 [facility] Weight 80 04/11/2017 [facility] Height 154.94 cm 04/11/2017 [facility] Systolic (mm Hg) 150 04/11/2017 [facility] Diastolic (mm Hg) 85 04/11/2017 [facility] Heart Rate 100 04/11/2017 [facility] Respitory Rate 18 04/11/2017 [facility] Temperature Oral (F) 97.3 F 04/11/2017 [facility] Respitory Rate 18 11/24/2016 [facility] Systolic (mm Hg) 139 11/24/2016 [facility] Diastolic (mm Hg) 78 11/24/2016 [facility] Systolic (mm Hg) 130 11/24/2016 [facility] Diastolic (mm Hg) 70 11/24/2016 [facility] Respitory Rate 17 11/24/2016 [facility] Temperature Oral (F) 98 F 11/24/2016 [facility] Systolic (mm Hg) 126 11/24/2016 [facility] Diastolic (mm Hg) 78 11/24/2016 [facility] Respitory Rate 20 11/24/2016 [facility] Heart Rate 88 11/24/2016 [facility] Heart Rate 79 11/24/2016 [facility] Temperature Oral (F) 98.4 F 11/24/2016 [facility] Height 154.94 cm 11/24/2016 [facility] Weight 77.273 11/24/2016 [facility] BMI Calculated 32.19 11/24/2016 [facility] Temperature Oral (F) 98.5 F 11/24/2016 [facility] Heart Rate 94 11/24/2016 [facility] Respitory Rate 18 11/05/2015 [facility] Systolic (mm Hg) 128 11/05/2015 [facility] Diastolic (mm Hg) 78 11/05/2015 [facility] Heart Rate 79 11/05/2015 [facility] Temperature Oral (F) 97.7 F 11/05/2015 [facility] Systolic (mm Hg) 144 11/03/2014 [facility] Diastolic (mm Hg) 89 11/03/2014 [facility] Respitory Rate 16 11/03/2014 [facility] Heart Rate 77 11/03/2014 [facility] Temperature Oral (F) 98.2 F 11/03/2014 [facility] Respitory Rate 20 11/03/2014 [facility] Weight 78.182 11/03/2014 [facility] Respitory Rate 16 11/03/2014 [facility] Temperature Oral (F) 98 F 11/03/2014 [facility] Systolic (mm Hg) 156 11/03/2014 [facility] Diastolic (mm Hg) 98 11/03/2014 [facility] Heart Rate 84 11/03/2014 [facility] Heart Rate 87 06/20/2014 [facility] Temperature Oral (F) 98.3 F 06/20/2014 [facility] Respitory Rate 18 06/20/2014 [facility] Diastolic (mm Hg) 99 06/20/2014 [facility] Systolic (mm Hg) 138 06/20/2014 [facility] Systolic (mm Hg) 156 06/20/2014 [facility] Diastolic (mm Hg) 101 06/20/2014 [facility] Respitory Rate 20 06/20/2014 [facility] Heart Rate 108 06/20/2014 [facility] Respitory Rate 20 06/20/2014 [facility] Systolic (mm Hg) 170 06/20/2014 [facility] Heart Rate 18 06/20/2014 [facility] Diastolic (mm Hg) 94 06/20/2014 [facility] Temperature Oral (F) 98.1 F 06/20/2014 [facility] Weight 78.182 06/20/2014 [facility] Height 154.94 cm 06/20/2014 [facility] BMI Calculated 32.57 06/20/2014 [facility] Encounters Location Location Details Encounter Type Encounter Number Reason For Visit Attending Provider ADM Date DC Date Status Source [facility] [id number] Nadim Sabianist 06/20/2014 06/20/2014 [facility] [id number] Nadim Sabianist 11/03/2014 11/03/2014 [facility] [id number] Stephan Tan 11/05/2015 11/05/2015 [facility] Emergency [id number] Yakov Zamorano 11/24/2016 11/24/2016 [facility] Emergency [id number] Caitlin Dexter 04/11/2017 04/12/2017 [facility] Emergency [id number] Juan F Brewer 04/13/2017 04/14/2017 [facility] Emergency Center ([id number]) [facility] [id number] Luis FINNEY 01/30/2018 01/30/2018 [facility] Pricila Rico Same Day Office Visit [id number] Fredi Mabry MD 01/30/2018 01/30/2018 [facility] [id number] Lucas Hernandezlyaria 02/26/2018 02/27/2018 [facility] [place] [facility] Day Surgery [id number] Germán Alonso 04/27/2018 04/27/2018 [facility] [place] OP Therapy Patients [id number] Germán Alonso 05/22/2018 06/21/2018 [facility] [place] [facility] [place] [facility] Patients [id number] Germán Alonso 07/09/2018 08/08/2018 [facility] [place] Procedures Procedure Code Date Perfomer Comments Source Bilateral tubal ligation [id number] [facility] Cholecystectomy [id number] [facility] Bilateral tubal ligation [id number] [facility] [place] Cholecystectomy [id number] [facility] [place] Bilateral tubal ligation [id number] [facility] [place] Cholecystectomy [id number] [facility] [place] Bilateral tubal ligation [id number] [facility] Cholecystectomy [id number] [facility] Bilateral tubal ligation [id number] [facility] Cholecystectomy [id number] [facility] Assessment and Plan No Data Provided for This Section Plan of Care Plan of Care Date Source IMM Influenza Seasonal Feb to July (>/=19 yrs) 02/16/[address] [facility] Upcoming EncountersDateTypeSpecialtyCare TeamDescription 02/23/2018 Office Visit Family [facility] Brendon Pan [id number] [place], [place] [phone] (Fax) FOLLOW UP APPT FROM SAME DAY CLINIC... Health MaintenanceDue DateLast DoneComments Cervical Cancer Scrn (3 Yrs) 1986 Breast Cancer Scrn (Yearly) 2005 Colorectal Cancer Scrn Annual (FIT/FOBT) Age 50 to 75 2015 IMM Influenza Seasonal Feb to July (>/=19 yrs) 02/16/2018 02/20/[address] [facility] IMM Influenza Seasonal Feb to July (>/=19 yrs) 02/16/[address] [facility] Colorectal Cancer Scrn Annual (FIT/FOBT) Age 50 to [address] [facility] Breast Cancer Scrn (Yearly) [address] [facility] Cervical Cancer Scrn (3 Yrs) [address] [facility] Social History Social History Date Source [...] Cessation Counseling No entered on: 04/27/18 04/27/2018 [facility] Tobacco UseTypesPacks/DayYears UsedDate Never Smoker Smokeless Tobacco: Never Used Sex Assigned at BirthDate Recorded Not on file Job Start DateOccupationIndustry Not on file Not on file Not on file Travel HistoryTravel StartTravel End No recent travel history available. 01/30/[address] [facility] Social History TypeResponse Smoking Status Never smoker; Ready to change: No; Concerns about tobacco use in household: No; Exposure to Tobacco Smoke None; Cigarette Smoking Last 365 Days No; Reg Smoking Cessation Counseling No 04/13/2017 [facility] Social History TypeResponse Smoking Status Never smoker; Ready to change: No; Concerns about tobacco use in household: No; Exposure to Tobacco Smoke None; Cigarette Smoking Last 365 Days No; Reg Smoking Cessation Counseling No 04/13/2017 [facility] Family History No Data Provided for This Section Advance Directives No Data Provided for This Section Functional Status No Data Provided for This Section
[2018-12-09] MEDS ORDERED: SODIUM CHLORIDE 0.9% 1000ML 1,000 ML IV STA (19:26)
[2018-12-09] MEDS ORDERED: AMPICILLIN SOD/SULBACTAM 3GM 100 ML IV ONE (19:30)
[2018-12-09 20:33] VITALS: BP 162/83
== END 2018-12-09 21:11 | disposition home or self-care (01) ==
LOC: ER 19:20
DX: G51.0 Bell's palsy (principal)
CPT/HCPCS: 99282

== ENCOUNTER 2019-06-16 08:41 | Inpatient (IN) | payer BC, OTHER ==
[~2019-06-16] VITALS: Ht 154.9 cm; Wt 76.8 kg
[~2019-06-16 08:41] MED LIST: AUGMENTIN 875-1 EACH PO; BENZONATATE100 MG PO; LOSARTAN POTASS25 MG PO; PREDNISONE20 MG PO; XOPENEX0.31 MG/3 NEB
[2019-06-16] MEDS ORDERED: ALBUTEROL SULF 0.083% NEB SOLN 3 ML NEB NEB STA (08:50)
[2019-06-16] MEDS ORDERED: SODIUM CHLORIDE 0.9% 1000ML 1,000 ML IV STA (08:50)
[2019-06-16] MEDS ORDERED: METHYLPREDNISOLONE SOD SUCC 125 MG/2ML VIAL IV STA (08:50)
[2019-06-16] MEDS ORDERED: IPRATROPIUM BROMIDE 0.02% 2.5 ML NEB NEB ONE (09:00)
[2019-06-16 09:19] LABS: EOSINOPHILS % 0.7 % (0.0-6.0); HEMATOCRIT 37.7 % (34.2-44.1); HEMOGLOBIN 12.5 g/dL (12.0-16.0); LYMPHOCYTES % 18.4 % (18.0-39.1); MEAN CORPUSCULAR HEMOGLOBIN 28.2 pg (28-32); MEAN CORPUSCULAR HGB CONC 33.2 g/dL (31-35); MEAN CORPUSCULAR VOLUME 85.1 fL (81-99); MONOCYTES # (AUTO) 0.4 (0.2-0.8); MONOCYTES % 7.1 % (4.4-11.3); NEUTROPHILS # (AUTO) 4.1 (2.1-6.9); NEUTROPHILS % 73.6 % (38.7-80.0); PLATELET COUNT 232 x10e3/uL (140-360); RED BLOOD COUNT 4.43 x10e6/uL (3.6-5.1)
[2019-06-16 09:33] LABS: INR 0.99; PROTHROMBIN TIME 13.6 seconds (11.9-14.5)
[2019-06-16 09:34] LABS: PARTIAL THROMBOPLASTIN TIME 29.6 seconds (23.8-35.5)
[2019-06-16 09:41] LABS: ALANINE AMINOTRANSFERASE 93 IU/L (0-55); ALBUMIN 2.8 g/dL (3.5-5.0); ALBUMIN/GLOBULIN RATIO 0.6 (0.8-2.0); ALKALINE PHOSPHATASE 89 IU/L (40-150); ANION GAP 14.6 mmol/L (8-16); BLOOD UREA NITROGEN 14 mg/dL (7-26); BUN/CREATININE RATIO 20 (6-25); CALCIUM 9.8 mg/dL (8.4-10.2); CARBON DIOXIDE 25 mmol/L (22-29); CHLORIDE 100 mmol/L (98-107); CREATINE KINASE 478 IU/L (29-168); CREATININE, SERUM 0.69 mg/dL (0.57-1.11); EST GLOMERULAR FILTRATION RATE > 60 ML/MIN (60-); GLUCOSE 93 mg/dL (74-118); LIPASE 24 U/L (8-78); POTASSIUM 3.6 mmol/L (3.5-5.1); SODIUM 136 mmol/L (136-145)
--- NOTE | 2019-06-16 09:49 | Diagnostic Imaging Report ---
EXAMINATION: CHEST SINGLE (PORTABLE) INDICATION: Cough, shortness of breath COMPARISON: Chest radiograph 06/10/2019, chest CT 06/10/2019 FINDINGS: LINES/TUBES:EKG leads overlie the chest. LUNGS:The lungs are moderately inflated. Compared to 06/10/2019, there has been interval increase in patchy opacities at both lung bases. PLEURA:No pleural effusion or pneumothorax. MEDIASTINUM:The cardiomediastinal silhouette appears normal in size and shape. BONES/SOFT TISSUES:No acute osseous injury. ABDOMEN:No free air under the diaphragm. IMPRESSION: Patchy opacities at both lung bases, increased from 06/10/2019, are concerning for aspiration and/or pneumonia in the proper clinical setting. RECOMMENDATIONS: Follow-up PA and lateral chest radiograph in 6-8 weeks following treatment to assess for resolution. Signed by: Muriel Hitchcock MD on 06/16/2019 9:47 AM
[2019-06-16 10:09] LABS: B-TYPE NATRIURETIC PEPTIDE2 < 10.0 pg/mL (0-100)
[2019-06-16] MEDS ORDERED: HYDROCODONE/APAP 7.5MG-325MG 1 EA TAB PO PRN (10:15)
[2019-06-16] MEDS ORDERED: ONDANSETRON HCL INJ 2MG/ML 2ML 2 MG/ML VIAL IV PRN (10:30)
[2019-06-16] MEDS: PIPER-TAZ 3.375 GM 50 ML IV SCH ×3 (11:05→22:00)
[2019-06-16] MEDS: SODIUM CHLORIDE 0.9% 1000ML 1,000 ML IV SCH ×2 (11:05→21:09)
[2019-06-16] MEDS: AZITHROMYCIN 500MG/NS 250 ML 250 ML IV SCH (11:46)
[2019-06-16] MEDS: ALBUTEROL SULF 0.083% NEB SOLN 3 ML NEB NEB SCH ×4 (12:40→23:10)
[2019-06-16] MEDS: IPRATROPIUM BROMIDE 0.02% 2.5 ML NEB NEB SCH ×4 (12:40→23:10)
[2019-06-16 16:16] LABS: CLARITY,URINE SL CLOUDY (CLEAR); COLOR,URINE YELLOW (YELLOW); KETONES,URINE TRACE (NEGATIVE); LEUKOCYTE ESTERASE ,URINE NEGATIVE (NEGATIVE); NITRITE,URINE NEGATIVE (NEGATIVE); PROTEIN,URINE DIPSTICK NEGATIVE (NEGATIVE)
[2019-06-16 16:17] LABS: BILIRUBIN,URINE NEGATIVE (NEGATIVE); URINE UROBILINOGEN 0.2 mg/dL (0.2 - 1)
[2019-06-16] MEDS: METHYLPREDNISOLONE SOD SUCC 125 MG/2ML VIAL IV SCH ×2 (16:20→22:00)
[2019-06-16 16:29] LABS: BACTERIA,URINE MODERATE /HPF; EPITHELIAL CELLS,URINE FEW /LPF; RBC,URINE 0-5 /HPF (0-5)
[2019-06-16 17:46] LABS: CREATINE KINASE MB 0.4 ng/mL (0-5.0)
[2019-06-16 19:55] VITALS: BP 143/70
--- NOTE | 2019-06-16 20:00 | NUR ---
Patient received sitting up in bed. AAO x 3. Patient had no complaints of pain. Respirations even and non-labored. Admission history obtained. Initial physical assessment performed. Telemetry in place. Patient oriented to room, call light and plan of care. Fall precautions implemented. Patient instructed to call for assistance when needed. Call light within reach.
[2019-06-16 20:04] VITALS: BP 143/70
--- NOTE | 2019-06-16 20:30 | NUR ---
Dr. Atiya Vazquez paged regarding "Routine Consult". Reason: Pneumonia. Spoke to Dilia. Awaiting call back,
--- NOTE | 2019-06-16 20:50 | NUR ---
Dr. Vazquez here to see patient.
[2019-06-16 21:00] VITALS: BP 143/70
[2019-06-17] VITALS (8 sets, daily range): BP systolic 129–161; BP diastolic 62–78
--- NOTE | 2019-06-17 01:45 | NUR ---
Blood specimen sent to lab for analysis of cardiac enzymes.
--- NOTE | 2019-06-17 02:20 | Consultation ---
DATE OF CONSULTATION: 06/16/2019 Pulmonary Consultation REASON FOR CONSULT: Shortness of breath, wheezing and coughing. HISTORY OF PRESENT ILLNESS: Ms. Alexander is a 54-year-old female. She presented to the emergency room with coughing, wheezing and shortness of breath. She was discharged on June 13. She reports that episodically she has increasing cough, wheezing for the last 10 years. She received IV steroids and antibiotic at urgent care, which takes care of it and then it recurs after a few days. She is not on any inhalers at home. She reports that the wheezing and coughing are worse during the daytime and when she is trying to sleep, she denies any allergies, has nasal congestion. She works in [employer]. She does not have any pets at home. REVIEW OF SYSTEMS: GENERAL: Denies any fever or chills. HEAD: Denies any head trauma. ENT: Denies any earaches. CVS: Denies any chest pain. RESPIRATORY: Wheezing and coughing. GI: Denies any nausea or vomiting. The rest of the review of systems are negative except as in HPI. PAST MEDICAL HISTORY: Hypertension. PAST SURGICAL HISTORY: Tubal ligation, sling surgery. FAMILY AND SOCIAL HISTORY: She does not smoke. Does not drink. Works in [employer]. PHYSICAL EXAMINATION: VITAL SIGNS: Temperature 97.2, pulse of 66, blood pressure 138/78. CHEST: Wheezing bilaterally. HEART: S1 and S2 audible. ABDOMEN: Soft. EXTREMITIES: No pedal edema. NEUROLOGIC: Awake and alert. No focal neurologic deficits. LABORATORY DATA: Reviewed. ASSESSMENT AND PLAN: A 54-year-old female likely has underlying asthma, which is uncontrolled as the patient has never been on any maintenance inhaler or inhaled steroids. Plan, currently the patient is in exacerbation. Agree with steroids, nebulizer treatment, oxygen and antibiotics. Chest x-ray films reviewed. I do not think the patient has any new pneumonia. The patchy infiltrate could be due to mucus plugs versus previous pneumonia which was treated. Thank you for this consult. MD RICHARD Monteiro/MINDI /[id number]
[2019-06-17 02:24] LABS: CREATINE KINASE MB 0.4 ng/mL (0-5.0)
[2019-06-17] MEDS: IPRATROPIUM BROMIDE 0.02% 2.5 ML NEB NEB SCH ×6 (03:01→23:30)
[2019-06-17] MEDS: ALBUTEROL SULF 0.083% NEB SOLN 3 ML NEB NEB SCH ×6 (03:01→23:30)
[2019-06-17] MEDS: PIPER-TAZ 3.375 GM 50 ML IV SCH ×4 (04:30→22:13)
[2019-06-17] MEDS: METHYLPREDNISOLONE SOD SUCC 125 MG/2ML VIAL IV SCH (06:08)
--- NOTE | 2019-06-17 06:13 | Diagnostic Imaging Report ---
EXAMINATION: CHEST SINGLE (PORTABLE) COMPARISON: Chest x-ray 06/16/2019 INDICATION: ^ Pneumonia ^[id number] ^0520 ^Y DISCUSSION: Frontal view of the chest obtained at 0537 hours. HEART AND MEDIASTINUM: The cardiomediastinal silhouette is unremarkable. LINES: None. LUNGS: Low lung volumes. Bibasilar airspace opacities are stable. No interstitial edema. PLEURA: No pleural effusion or pneumothorax. BONES AND SOFT TISSUES: No focal osseous lesion. The soft tissues are normal. IMPRESSION: Stable bibasilar airspace opacities suggestive of atelectasis or infiltrate. Signed by: Dr. Batsheva Moreau MD on 06/17/2019 6:10 AM
--- NOTE | 2019-06-17 07:00 | NUR ---
RCD PT AT BED PT IS ALERT AND ORIENTED PT RESTING ON BED NO SIGNS OF ANY DISTRESS NOTED IV PATENT BY SALINE FLUSH BED LOW AND LOCKED CALL LIGHT IN REACH
--- NOTE | 2019-06-17 07:00 | NUR ---
Walking rounds/BSSR conducted.
--- NOTE | 2019-06-17 10:56 | History and Physical ---
REASON FOR ADMISSION: Pneumonia. HISTORY OF PRESENT ILLNESS: The patient is a 54-year-old female, was recently in the hospital for pneumonia, where she was discharged with p.o. medications with steroids and antibiotics, but she stated when she got home, she started having increasing midsternal chest pain, increasing shortness of breath and "gagging" so therefore she presented back to the emergency room where she was noticed to have persistent pneumonia on the x-ray so she was then admitted for further evaluation and treatment. PAST MEDICAL HISTORY: Significant for hypertension. MEDICATIONS: See MAR. SOCIAL HISTORY: Nonsmoker, nondrinker. FAMILY HISTORY: Hypertension. ALLERGIES: NO KNOWN ALLERGIES. PHYSICAL EXAMINATION: VITAL SIGNS: Temperature 95.9, pulse 69, blood pressure 158/71, sats 100% on nasal cannula. GENERAL: No apparent distress, lying in bed. NECK: Supple. CARDIOVASCULAR: Regular rate and rhythm. LUNGS: Bilateral wheezing, but very mild. ABDOMEN: Good bowel sounds. Soft, nontender. EXTREMITIES: No clubbing or cyanosis. NEUROLOGIC: Nonfocal. Moves all extremities x4. ASSESSMENT AND PLAN: 1. Pneumonia. Continue with current care and Pulmonary has seen the patient. 2. Asthma/chronic obstructive pulmonary disease. We will continue with her steroids. 3. Chest pain appears to be more pleuritic in nature. She will continue with pain control. She is currently chest pain free. 4. Hypertension. We will continue to monitor. 5. Elevated liver function tests. We will continue to monitor as well. The patient appears to be asymptomatic. She has no abdominal pain. No diarrhea. No nausea or vomiting. Please see hospital chart for full details. MD ZAMZAM Larry/MINDI /[id number]
[2019-06-17] MEDS: AZITHROMYCIN 500MG/NS 250 ML 250 ML IV SCH (11:00)
[2019-06-17 11:20] LABS: CREATINE KINASE MB 0.6 ng/mL (0-5.0)
[2019-06-17] MEDS ORDERED: ONDANSETRON HCL 4 MG ORAL DISINTEGRATING TAB PO PRN (14:15)
--- NOTE | 2019-06-17 16:15 | NUR ---
PT C/O ERNIE PAGED AND NOTIFIED DR JACOBSON GOT NEW ORDERS
[2019-06-17] MEDS: GUAIFENESIN/DEXTROMETHORPHAN LIQD 5 ML UDC NG PRN (17:01)
--- NOTE | 2019-06-17 18:39 | NUR ---
PT RESTING ON BED BED SIDE REPORT GIVEN TO ONCOMING NURSE
[2019-06-18] VITALS (9 sets, daily range): BP systolic 121–157; BP diastolic 58–87
[2019-06-18] MEDS: ALBUTEROL SULF 0.083% NEB SOLN 3 ML NEB NEB SCH ×6 (03:05→23:25)
[2019-06-18] MEDS: IPRATROPIUM BROMIDE 0.02% 2.5 ML NEB NEB SCH ×7 (03:05→23:25)
[2019-06-18] MEDS: PIPER-TAZ 3.375 GM 50 ML IV SCH ×4 (04:30→21:23)
[2019-06-18 06:58] LABS: BASOPHILS % 0.1 % (0.0-1.0); EOSINOPHILS % 0.1 % (0.0-6.0); HEMATOCRIT 30.1 % (34.2-44.1); HEMOGLOBIN 9.8 g/dL (12.0-16.0); LYMPHOCYTES % 13.2 % (18.0-39.1); MEAN CORPUSCULAR HGB CONC 32.6 g/dL (31-35); MONOCYTES # (AUTO) 0.5 (0.2-0.8); MONOCYTES % 6.7 % (4.4-11.3); NEUTROPHILS % 77.2 % (38.7-80.0); PLATELET COUNT 292 x10e3/uL (140-360); RED CELL DISTRIBUTION WIDTH 14.2 % (11.7-14.4)
[2019-06-18 07:23] LABS: ALANINE AMINOTRANSFERASE 57 IU/L (0-55); ALBUMIN 2.4 g/dL (3.5-5.0); ALBUMIN/GLOBULIN RATIO 0.7 (0.8-2.0); ALKALINE PHOSPHATASE 67 IU/L (40-150); ANION GAP 14.2 mmol/L (8-16); BLOOD UREA NITROGEN 10 mg/dL (7-26); BUN/CREATININE RATIO 15 (6-25); CALCIUM 9.3 mg/dL (8.4-10.2); CARBON DIOXIDE 24 mmol/L (22-29); CHLORIDE 108 mmol/L (98-107); CREATININE, SERUM 0.65 mg/dL (0.57-1.11); EST GLOMERULAR FILTRATION RATE > 60 ML/MIN (60-); GLUCOSE 109 mg/dL (74-118); MAGNESIUM 1.7 MG/DL (1.3-2.1); POTASSIUM 3.2 mmol/L (3.5-5.1); SODIUM 143 mmol/L (136-145)
--- NOTE | 2019-06-18 09:09 | NUR ---
PAGED AND NOTIFIED THE POTASSIUM LEVEL TO DR JACOBSON GOT NEW ORDERS
[2019-06-18] MEDS ORDERED: POTASSIUM CHLORIDE 20 MEQ TAB CR PO ONE (09:45)
[2019-06-18] MEDS: GUAIFENESIN/DEXTROMETHORPHAN LIQD 5 ML UDC NG PRN ×2 (09:48→17:37)
[2019-06-18] MEDS: AZITHROMYCIN 250 MG TAB PO SCH (11:12)
[2019-06-18 13:22] LABS: EOSINOPHILS % (MANUAL) 1 % (0-7); LYMPHOCYTES % (MANUAL) 7 % (19-48); MONOCYTES % (MANUAL) 10 % (3.4-9.0); NEUTROPHILS % (MANUAL) 82 % (40-74)
--- NOTE | 2019-06-18 19:19 | NUR ---
PT RESTING ON BED BED SIDE REPORT GIVEN TO ONCOMING NURSE
[2019-06-19] VITALS (8 sets, daily range): BP systolic 119–155; BP diastolic 64–77
[2019-06-19] MEDS: ALBUTEROL SULF 0.083% NEB SOLN 3 ML NEB NEB SCH ×5 (03:01→20:39)
[2019-06-19] MEDS: IPRATROPIUM BROMIDE 0.02% 2.5 ML NEB NEB SCH ×5 (03:01→20:39)
[2019-06-19] MEDS: PIPER-TAZ 3.375 GM 50 ML IV SCH ×4 (04:10→22:05)
[2019-06-19 06:03] LABS: BASOPHILS % 0.2 % (0.0-1.0); EOSINOPHILS % 0.5 % (0.0-6.0); HEMATOCRIT 33.8 % (34.2-44.1); HEMOGLOBIN 10.7 g/dL (12.0-16.0); LYMPHOCYTES # (AUTO) 1.4 (1.0-3.2); LYMPHOCYTES % 23.2 % (18.0-39.1); MEAN CORPUSCULAR HEMOGLOBIN 28.3 pg (28-32); MEAN CORPUSCULAR HGB CONC 31.7 g/dL (31-35); MEAN CORPUSCULAR VOLUME 89.4 fL (81-99); MONOCYTES # (AUTO) 0.7 (0.2-0.8); MONOCYTES % 11.2 % (4.4-11.3); NEUTROPHILS # (AUTO) 3.8 (2.1-6.9); NEUTROPHILS % 62.9 % (38.7-80.0); PLATELET COUNT 347 x10e3/uL (140-360); RED BLOOD COUNT 3.78 x10e6/uL (3.6-5.1); RED CELL DISTRIBUTION WIDTH 14.6 % (11.7-14.4)
[2019-06-19 06:26] LABS: ALANINE AMINOTRANSFERASE 51 IU/L (0-55); ALBUMIN 2.7 g/dL (3.5-5.0); ALBUMIN/GLOBULIN RATIO 0.8 (0.8-2.0); ALKALINE PHOSPHATASE 73 IU/L (40-150); ANION GAP 14.6 mmol/L (8-16); BLOOD UREA NITROGEN 9 mg/dL (7-26); BUN/CREATININE RATIO 12 (6-25); CALCIUM 9.6 mg/dL (8.4-10.2); CARBON DIOXIDE 26 mmol/L (22-29); CHLORIDE 104 mmol/L (98-107); CREATININE, SERUM 0.75 mg/dL (0.57-1.11); EST GLOMERULAR FILTRATION RATE > 60 ML/MIN (60-); GLUCOSE 88 mg/dL (74-118); POTASSIUM 4.6 mmol/L (3.5-5.1); SODIUM 140 mmol/L (136-145)
[2019-06-19] MEDS: PANTOPRAZOLE SOD 40 MG TABEC PO SCH (11:00)
[2019-06-19] MEDS: AZITHROMYCIN 250 MG TAB PO SCH (11:15)
[2019-06-19] MEDS: SUCRALFATE 1 GM/10 ML SUSP NG SCH ×3 (11:17→22:05)
--- NOTE | 2019-06-19 17:17 | NUR ---
PT C/O ABDOMINAL PAIN AND NAUSEA PAGED DR JACOBSON TO NOTIFY THAT
--- NOTE | 2019-06-19 18:53 | NUR ---
PT RESTING ON BED BED SIDE REPORT GIVEN TO ONCOMING NURSE
--- NOTE | 2019-06-19 19:20 | NUR ---
Pt visited in room during nursing rounds. Pt alert and oriented x3. Patient sitting on bedside recliner. Pt stated having some minor feeling of nausea but not as bad as before. Pt ambulatory in room prn. Call leonard within reach. Will monitor pt closely.
--- NOTE | 2019-06-19 22:25 | NUR ---
Dr. Navas came and visited pt in room. MD aware of patient condition and that patient has been having some feeling of nausea. Dr Navas ordered Zofran 4mg IV Q4hr prn and KUB in AM (06/20/19).
[2019-06-19] MEDS ORDERED: ONDANSETRON HCL INJ 2MG/ML 2ML 2 MG/ML VIAL IV PRN (22:30)
[2019-06-20] VITALS (8 sets, daily range): BP systolic 98–123; BP diastolic 54–66
[2019-06-20] MEDS: IPRATROPIUM BROMIDE 0.02% 2.5 ML NEB NEB SCH ×7 (00:25→23:10)
[2019-06-20] MEDS: ALBUTEROL SULF 0.083% NEB SOLN 3 ML NEB NEB SCH ×7 (00:25→23:10)
[2019-06-20] MEDS: PIPER-TAZ 3.375 GM 50 ML IV SCH ×4 (04:18→21:40)
[2019-06-20] MEDS: PANTOPRAZOLE SOD 40 MG TABEC PO SCH ×2 (06:41→16:57)
[2019-06-20] MEDS: SUCRALFATE 1 GM/10 ML SUSP NG SCH ×4 (06:41→21:40)
--- NOTE | 2019-06-20 06:41 | NUR ---
Pt escorted via wheelchair by [employer] for a KUB test. Pt in stable condition.
--- NOTE | 2019-06-20 06:55 | NUR ---
pt sleeping in bed, report received by previous shift
--- NOTE | 2019-06-20 08:05 | Diagnostic Imaging Report ---
EXAM: Abdomen Radiograph 1 View(s) INDICATION: ^abdominal pain, nausea ^[id number] ^0640 COMPARISON: CT abdomen pelvis 06/10/2019. FINDINGS: No abnormalities in the lower chest. No lines or tubes. Normal volume of stool in the colon. No dilated loops of small bowel. No abnormal abdominal calcifications.. No abnormal soft tissue masses. No pneumoperitoneum. No acute osseous abnormality. IMPRESSION: No acute abdominal radiographic abnormality. Signed by: Deyvi Yin MD on 06/20/2019 8:03 AM
--- NOTE | 2019-06-20 14:08 | Progress Note ---
DATE: 06/20/2019 SUBJECTIVE: The patient states that after rounds yesterday she started having a slight increase in abdominal discomfort as well as queasiness, but no vomiting. She states her last bowel movement was the day before. She states that food does aggravate it a little bit as far as the queasiness. States her breathing is doing much better overall. OBJECTIVE: VITAL SIGNS: Temperature 98.2, pulse 81, blood pressure 124/69, sats 95% on nasal cannula. GENERAL: She is in no apparent distress, lying in bed. CARDIOVASCULAR: Regular rate and rhythm. LUNGS: Have mild rhonchi bilaterally, but improved overall. ABDOMEN: Good bowel sounds. Soft, nontender, nondistended. No masses palpable. She has no peritoneal signs. She does not even have tenderness on exam. EXTREMITIES: No clubbing or cyanosis. NEUROLOGIC: Nonfocal. ASSESSMENT AND PLAN: 1. Abdominal discomfort. We will place her on some proton pump inhibitors, Carafate and antiemetics. We will get a KUB. 2. Acute respiratory failure with hypoxia. Continue with O2. 3. Obesity. Continue with diet. 4. Pneumonia. Continue with antibiotics. 5. Anemia. Continue to monitor p.r.n. Please see hospital chart for full details. MD ZAMZAM Larry/MINDI /[id number]
--- NOTE | 2019-06-20 19:20 | NUR ---
Pt visited in room during nursing rounds. Pt alert and oriented x3. Patient resting in bed. Ambulatory in room prn. Pt stated having some minor feeling of nausea but not as bad as before. Pt ambulatory in room prn. Call leonard within reach. Will monitor pt closely.
[2019-06-21] VITALS (8 sets, daily range): BP systolic 110–126; BP diastolic 58–72
[2019-06-21] MEDS ORDERED: SODIUM CHLORIDE 0.9% 250ML 250 ML ONE (00:10)
[2019-06-21] MEDS: ALBUTEROL SULF 0.083% NEB SOLN 3 ML NEB NEB SCH ×6 (03:47→23:40)
[2019-06-21] MEDS: IPRATROPIUM BROMIDE 0.02% 2.5 ML NEB NEB SCH ×6 (03:47→23:40)
[2019-06-21] MEDS: PIPER-TAZ 3.375 GM 50 ML IV SCH ×4 (04:16→22:03)
[2019-06-21] MEDS: SUCRALFATE 1 GM/10 ML SUSP NG SCH ×4 (06:25→22:02)
--- NOTE | 2019-06-21 07:00 | NUR ---
BEDSIDE SHIFT REPORT RECEIVED FROM THE TUNNEL ELASTIC OPERATOR ZIGZAG RN. EDUCATED PT ABOUT FALL PRECAUTIONS. CALL LIGHT WITH IN EASY REACH. INSTRUCTED PT TO USE CALL LIGHT FOR ALL THE NEEDS. PT VERBALIZED UNDERSTANDING. BED IS LOW AND LOCKED. SIDE RAILS X2. PT DENIES NEEDS AT THIS TIME.
--- NOTE | 2019-06-21 19:00 | NUR ---
BEDSIDE SHIFT REPORT GIVEN TO THE PROCUREMENT ENGINEER RN. PT DENIED FURTHER NEEDS.
--- NOTE | 2019-06-21 20:07 | NUR ---
RECEIVED PT IN BED AOX3 .RESPIRATIONS ARE EVEN AND UNLABORED .DENIES PAIN CALL LIGHT WITH IN REACH .CONTINUE TO MONITOR
[2019-06-22] VITALS: BP 112/61
[2019-06-22] MEDS: IPRATROPIUM BROMIDE 0.02% 2.5 ML NEB NEB SCH ×3 (03:00→10:35)
[2019-06-22] MEDS: ALBUTEROL SULF 0.083% NEB SOLN 3 ML NEB NEB SCH ×3 (03:00→10:35)
[2019-06-22 04:00] VITALS: BP 134/75
[2019-06-22] MEDS: PIPER-TAZ 3.375 GM 50 ML IV SCH ×2 (04:00→10:59)
[2019-06-22] MEDS: GUAIFENESIN/DEXTROMETHORPHAN LIQD 5 ML UDC NG PRN ×2 (05:48→11:07)
--- NOTE | 2019-06-22 06:18 | NUR ---
PT C/O COUGH AND GIVEN COUGH MEDICINE .DR JACOBSON HAVE SEEN THE PT .CALL LIGHT WITH IN REACH .CONTINUE TO MONITOR
--- NOTE | 2019-06-22 07:00 | NUR ---
BEDSIDE SHIFT REPORT RECEIVED FROM THE PACKAGING MACHINE OPERATOR RN. EDUCATED PT ABOUT FALL PRECAUTIONS. CALL LIGHT WITH IN EASY REACH. INSTRUCTED PT TO USE CALL LIGHT FOR ALL THE NEEDS. PT VERBALIZED UNDERSTANDING. BED IS LOW AND LOCKED. SIDE RAILS X2. PT DENIES NEEDS AT THIS TIME.
--- NOTE | 2019-06-22 07:27 | NUR ---
BEDSIDE REPORT GIVEN TO THE ONCOMING NURSE
[2019-06-22 07:51] VITALS: BP 130/69
[2019-06-22 08:00] VITALS: BP 130/69
[2019-06-22] MEDS: PANTOPRAZOLE SOD 40 MG TABEC PO SCH (08:29)
[2019-06-22] MEDS: SUCRALFATE 1 GM/10 ML SUSP NG SCH ×2 (08:29→12:00)
--- NOTE | 2019-06-22 10:12 | NUR ---
PAGED DR. JACOBSON REGARDING PT D/C PLAN. WAITING FOR THE RESPONSE FROM THE
[2019-06-22 12:00] VITALS: BP 133/80
[2019-06-22] MEDS ORDERED: LEVAQUIN500 MG PO (12:48)
[2019-06-22] MEDS ORDERED: PROAIR HFA INH8.5 GM (12:51)
[2019-06-22] MEDS ORDERED: ALBUTEROL0.63 MG/3 (12:51)
[2019-06-22] MEDS ORDERED: ARNUITY ELLIP200 MCG (12:54)
[2019-06-22] MEDS ORDERED: PREDNISONE20 MG PO (12:56)
--- NOTE | 2019-06-22 13:00 | NUR ---
ROSHAN TO D/C PT PER DR. JACOBSON AND DR. SHEEHAN.
--- NOTE | 2019-06-22 13:10 | NUR ---
PT DISCHARGED HOME SAFELY WITH FAMILY MEMBER.IV REMOVED, TIP INTACT. DRESSING APPLIED. RX GIVEN. DISCHARGE INSTRUCTIONS GIVEN AND PATIENT VERBALIZED UNDERSTANDING. PT ESCORTED TO THE PRIVATE AUTO AT THE FRONT ENTRANCE WITH TECH. PT DENIED FURTHER NEEDS.
== END 2019-06-22 13:11 | disposition home or self-care (01) | DRG 190 ==
LOC: ER 08:41 → ERHOLD 10:37 → MED/SURG2 18:46
PROVIDERS: ADMIT Internal Medicine; ATTEND Internal Medicine
DX: J44.0 Chronic obstructive pulmonary disease with (acute) lower respiratory infection (principal); J15.9 Unspecified bacterial pneumonia; J96.01 Acute respiratory failure with hypoxia; J44.1 Chronic obstructive pulmonary disease with (acute) exacerbation; I10 Essential (primary) hypertension; R94.5 Abnormal results of liver function studies; D64.9 Anemia, unspecified; R10.9 Unspecified abdominal pain; K21.9 Gastro-esophageal reflux disease without esophagitis; E66.9 Obesity, unspecified; Z68.32 Body mass index [BMI] 32.0-32.9, adult
CPT/HCPCS: 36415; 71045; 74018; 80053; 81001; 82550; 82553; 83605; 83690; 83735; 83880; 84484; 85025; 85610; 85730; 87040; 87086; 93005; 94640; 99284; J0456; J2543; J2930; J7030; J7050; Q0162

== ENCOUNTER 2019-07-09 02:14 | Emergency (ER) | payer OTHER ==
[~2019-07-09] VITALS: Ht 154.9 cm; Wt 76.7 kg
[~2019-07-09 02:14] MED LIST changes: +ALBUTEROL0.63 MG/3; +ARNUITY ELLIP200 MCG; +LEVAQUIN500 MG PO; +PROAIR HFA INH8.5 GM
[2019-07-09] MEDS ORDERED: ACETAMINOPHEN 325 MG TAB PO ONE (02:30)
[2019-07-09 02:50] LABS: BASOPHILS % 0.4 % (0.0-1.0); EOSINOPHILS # (AUTO) 0.2 (0.0-0.4); EOSINOPHILS % 3.6 % (0.0-6.0); HEMATOCRIT 33.6 % (34.2-44.1); HEMOGLOBIN 10.7 g/dL (12.0-16.0); LYMPHOCYTES # (AUTO) 0.9 (1.0-3.2); LYMPHOCYTES % 16.7 % (18.0-39.1); MEAN CORPUSCULAR HEMOGLOBIN 28.6 pg (28-32); MEAN CORPUSCULAR HGB CONC 31.8 g/dL (31-35); MEAN CORPUSCULAR VOLUME 89.8 fL (81-99); MONOCYTES # (AUTO) 0.6 (0.2-0.8); NEUTROPHILS # (AUTO) 3.6 (2.1-6.9); NEUTROPHILS % 66.9 % (38.7-80.0); PLATELET COUNT 344 x10e3/uL (140-360); RED BLOOD COUNT 3.74 x10e6/uL (3.6-5.1); RED CELL DISTRIBUTION WIDTH 14.7 % (11.7-14.4)
[2019-07-09 02:57] LABS: INFLUENZAE A&B ANTIGEN (RAPID) NEGATIVE (NEGATIVE)
[2019-07-09 02:58] LABS: STREPTOCOCCUS GRP A ANTIGEN NEGATIVE (NEGATIVE)
[2019-07-09 02:59] LABS: INR 1.06; PROTHROMBIN TIME 14.5 seconds (11.9-14.5)
[2019-07-09 03:00] LABS: PARTIAL THROMBOPLASTIN TIME 33.9 seconds (23.8-35.5)
[2019-07-09 03:10] LABS: ALANINE AMINOTRANSFERASE 15 IU/L (0-55); ALBUMIN 3.2 g/dL (3.5-5.0); ALBUMIN/GLOBULIN RATIO 0.7 (0.8-2.0); ALKALINE PHOSPHATASE 79 IU/L (40-150); ANION GAP 11.1 mmol/L (8-16); BLOOD UREA NITROGEN 10 mg/dL (7-26); BUN/CREATININE RATIO 13 (6-25); CALCIUM 9.4 mg/dL (8.4-10.2); CARBON DIOXIDE 25 mmol/L (22-29); CHLORIDE 106 mmol/L (98-107); CREATINE KINASE 41 IU/L (29-168); CREATININE, SERUM 0.76 mg/dL (0.57-1.11); EST GLOMERULAR FILTRATION RATE > 60 ML/MIN (60-); GLUCOSE 105 mg/dL (74-118); POTASSIUM 4.1 mmol/L (3.5-5.1); SODIUM 138 mmol/L (136-145)
--- NOTE | 2019-07-09 03:10 | Diagnostic Imaging Report ---
EXAMINATION: CHEST 2 VIEWS INDICATION: ^FEVER, COUGH ^[id number] ^0245 ^Y COMPARISON: Chest x-ray 06/17/2019 FINDINGS: PA and lateral views TUBES and LINES: None. LUNGS: Lungs are well inflated. Diffuse peribronchial thickening. Streaky perihilar airspace opacities. No confluent infiltrates PLEURA: No pleural effusion or pneumothorax. HEART AND MEDIASTINUM: The cardiomediastinal silhouette is unremarkable.. BONES AND SOFT TISSUES: No focal osseous lesions. Soft tissues are unremarkable. UPPER ABDOMEN: Unremarkable. Cholecystectomy clips in the right upper quadrant. IMPRESSION: Diffuse peribronchial thickening suggestive of bronchitis. Streaky perihilar airspace opacities may represent subsegmental atelectasis. Small foci of pneumonia cannot be excluded. Signed by: Dr. Batsheva Moreau MD on 07/09/2019 3:07 AM
--- NOTE | 2019-07-09 03:47 | Diagnostic Imaging Report ---
Right complete knee. CPT CODE: 54196. INDICATION: Pain, no history of trauma COMPARISON: None FINDINGS: No evidence of acute fracture or dislocation. The visualized joint spaces of the knee are preserved. There is a fabella in the popliteal fossa. No joint effusion. IMPRESSION: No osseous abnormalities to explain pain. Signed by: Dr. Batsheva Moreau MD on 07/09/2019 3:44 AM
[2019-07-09 03:57] VITALS: BP 125/74
== END 2019-07-09 04:21 | disposition home or self-care (01) ==
LOC: ER 02:14
DX: R07.89 Other chest pain (principal); R05 Cough; J20.9 Acute bronchitis, unspecified
CPT/HCPCS: 36415; 71046; 80053; 82550; 82553; 83518; 83605; 84484; 85025; 85610; 85730; 87040; 87070; 87400; 93005; 99284

== ENCOUNTER 2020-10-02 06:16 | Emergency (ER) | payer OTHER ==
[~2020-10-02] VITALS: Ht 154.9 cm; Wt 76.7 kg
[~2020-10-02 06:16] MED LIST changes: +FOLIC ACID PO; +METHOTREXATE2.5 MG PO; +OMEPRAZOLE40 MG PO
[2020-10-02] MEDS ORDERED: ONDANSETRON HCL INJ 2MG/ML 2ML 2 MG/ML VIAL IV STA (06:45)
[2020-10-02] MEDS ORDERED: DEXAMETHASONE SOD PHOS 10 MG/1 ML VIAL IV ONE (06:45)
[2020-10-02] MEDS ORDERED: HYDROCODONE/APAP 5MG-325MG TAB PO ONE (06:45)
[2020-10-02 07:50] LABS: ALANINE AMINOTRANSFERASE 11 IU/L (0-55); ALBUMIN 3.2 g/dL (3.5-5.0); ALBUMIN/GLOBULIN RATIO 0.7 (0.8-2.0); ALKALINE PHOSPHATASE 98 IU/L (40-150); ANION GAP 13.9 mmol/L (8-16); BASOPHILS % 0.3 % (0.0-1.0); BLOOD UREA NITROGEN 12 mg/dL (7-26); BUN/CREATININE RATIO 16 (6-25); CALCIUM 10.3 mg/dL (8.4-10.2); CARBON DIOXIDE 27 mmol/L (22-29); CHLORIDE 102 mmol/L (98-107); CREATINE KINASE 30 IU/L (29-168); CREATININE, SERUM 0.77 mg/dL (0.57-1.11); EOSINOPHILS # (AUTO) 0.1 (0.0-0.4); EST GLOMERULAR FILTRATION RATE > 60 ML/MIN (60-); GLUCOSE 91 mg/dL (74-118); HEMATOCRIT 36.5 % (34.2-44.1); HEMOGLOBIN 11.6 g/dL (12.0-16.0); INR 1.02; LYMPHOCYTES % 10.3 % (18.0-39.1); MEAN CORPUSCULAR HEMOGLOBIN 27.8 pg (28-32); MEAN CORPUSCULAR HGB CONC 31.8 g/dL (31-35); MEAN CORPUSCULAR VOLUME 87.5 fL (81-99); MONOCYTES # (AUTO) 0.8 (0.2-0.8); NEUTROPHILS # (AUTO) 7.3 (2.1-6.9); NEUTROPHILS % 79.1 % (38.7-80.0); PARTIAL THROMBOPLASTIN TIME 32.1 seconds (23.8-35.5); PLATELET COUNT 292 x10e3/uL (140-360); POTASSIUM 3.9 mmol/L (3.5-5.1); RED BLOOD COUNT 4.17 x10e6/uL (3.6-5.1); RED CELL DISTRIBUTION WIDTH 13.9 % (11.7-14.4); SODIUM 139 mmol/L (136-145)
[2020-10-02 07:51] LABS: CLARITY,URINE CLEAR (CLEAR); COLOR,URINE YELLOW (YELLOW); KETONES,URINE NEGATIVE (NEGATIVE); LEUKOCYTE ESTERASE ,URINE NEGATIVE (NEGATIVE); NITRITE,URINE NEGATIVE (NEGATIVE); PROTEIN,URINE DIPSTICK NEGATIVE (NEGATIVE); URINE UROBILINOGEN 0.2 mg/dL (0.2 - 1)
[2020-10-02 07:57] LABS: BACTERIA,URINE RARE /HPF; EPITHELIAL CELLS,URINE RARE /LPF; RBC,URINE 21-50 /HPF (0-5); WBC,URINE (MAN) 0-5 /HPF (0-5)
[2020-10-02 11:30] VITALS: BP 137/77
== END 2020-10-02 11:31 | disposition home or self-care (01) ==
LOC: ER 07:42
DX: M06.9 Rheumatoid arthritis, unspecified (principal); R52 Pain, unspecified
CPT/HCPCS: 36415; 71045; 80053; 81001; 82550; 82553; 83735; 84484; 85025; 85610; 85730; 87086; 93005; 99284; J1100; J2405

== ENCOUNTER 2021-03-15 20:47 | Observation (INO) | payer OTHER ==
[~2021-03-15] VITALS: Ht 154.9 cm; Wt 76.7 kg
[2021-03-15] MEDS ORDERED: ONDANSETRON HCL INJ 2MG/ML 2ML 2 MG/ML VIAL IV STA (20:56)
[2021-03-15] MEDS ORDERED: Morphine 4mg Syringe 4 MG/ML INJ IV STA (20:56)
[2021-03-15] MEDS ORDERED: ASPIRIN 81 MG CHEW TAB PO ONE (21:00)
[2021-03-15 21:09] LABS: BASOPHILS % 0.4 % (0.0-1.0); EOSINOPHILS # (AUTO) 0.2 (0.0-0.4); EOSINOPHILS % 2.1 % (0.0-6.0); HEMATOCRIT 37.3 % (34.2-44.1); HEMOGLOBIN 11.5 g/dL (12.0-16.0); LYMPHOCYTES # (AUTO) 2.2 (1.0-3.2); LYMPHOCYTES % 23.6 % (18.0-39.1); MEAN CORPUSCULAR HEMOGLOBIN 27.5 pg (28-32); MEAN CORPUSCULAR HGB CONC 30.8 g/dL (31-35); MEAN CORPUSCULAR VOLUME 89.2 fL (81-99); MONOCYTES # (AUTO) 0.7 (0.2-0.8); MONOCYTES % 7.9 % (4.4-11.3); NEUTROPHILS % 65.8 % (38.7-80.0); PLATELET COUNT 346 x10e3/uL (140-360); RED BLOOD COUNT 4.18 x10e6/uL (3.6-5.1); RED CELL DISTRIBUTION WIDTH 14.8 % (11.7-14.4)
[2021-03-15 21:30] LABS: ALBUMIN 3.3 g/dL (3.5-5.0); ALBUMIN/GLOBULIN RATIO 0.7 (0.8-2.0); ANION GAP 13.6 mmol/L (8-16); CALCIUM 9.6 mg/dL (8.4-10.2); CREATININE, SERUM 0.78 mg/dL (0.57-1.11); POTASSIUM 3.6 mmol/L (3.5-5.1)
[2021-03-15] MEDS ORDERED: ONDANSETRON HCL INJ 2MG/ML 2ML 2 MG/ML VIAL IV PRN (22:15)
[2021-03-15] MEDS ORDERED: Morphine 4mg Syringe 4 MG/ML INJ IV PRN (22:15)
[2021-03-15] MEDS ORDERED: SODIUM CHLORIDE 0.9% 50ML 50 ML ONE (22:23)
[2021-03-15] MEDS ORDERED: IOPAMIDOL 370 MG/ML 200 ML INFUS..BTL INJ ONE (22:23)
[2021-03-16] VITALS (10 sets, daily range): BP systolic 103–145; BP diastolic 55–73
[2021-03-16] MEDS: SODIUM CHLORIDE 0.9% 1000ML 1,000 ML IV SCH ×2 (01:44→06:15)
[2021-03-16 07:54] LABS: BASOPHILS % 0.3 % (0.0-1.0); EOSINOPHILS # (AUTO) 0.1 (0.0-0.4); EOSINOPHILS % 1.7 % (0.0-6.0); HEMATOCRIT 33.2 % (34.2-44.1); HEMOGLOBIN 10.1 g/dL (12.0-16.0); LYMPHOCYTES # (AUTO) 1.2 (1.0-3.2); LYMPHOCYTES % 20.1 % (18.0-39.1); MEAN CORPUSCULAR HEMOGLOBIN 27.5 pg (28-32); MEAN CORPUSCULAR HGB CONC 30.4 g/dL (31-35); MEAN CORPUSCULAR VOLUME 90.5 fL (81-99); MONOCYTES # (AUTO) 0.7 (0.2-0.8); MONOCYTES % 11.8 % (4.4-11.3); NEUTROPHILS % 65.9 % (38.7-80.0); PLATELET COUNT 287 x10e3/uL (140-360); RED BLOOD COUNT 3.67 x10e6/uL (3.6-5.1); RED CELL DISTRIBUTION WIDTH 14.9 % (11.7-14.4)
[2021-03-16 08:24] LABS: ALBUMIN 2.8 g/dL (3.5-5.0); ALBUMIN/GLOBULIN RATIO 0.7 (0.8-2.0); CREATININE, SERUM 0.74 mg/dL (0.57-1.11)
[2021-03-16 08:25] LABS: CREATINE KINASE 19 IU/L (29-168)
[2021-03-16 09:19] LABS: FERRITIN 24.96 ng/mL (4.63-204.00)
[2021-03-16] MEDS ORDERED: KETOROLAC TROMETHAMINE 30 MG/ML VIAL IV PRN (11:45)
[2021-03-16] MEDS ORDERED: KETOROLAC TROMETHAMINE 30 MG/ML VIAL IM ONE (12:30)
[2021-03-16] MEDS ORDERED: PREDNISONE 20 MG TAB PO SCH (12:30)
[2021-03-16 15:23] LABS: CREATINE KINASE MB 0.6 ng/mL (0-5.0)
[2021-03-16] MEDS ORDERED: ATORVASTATIN CA10 MG PO (18:43)
[2021-03-17 04:00] VITALS: BP 143/54
[2021-03-17 08:00] VITALS: BP 143/54
[2021-03-17] MEDS ORDERED: PREDNISONE 20 MG TAB PO SCH (08:00)
[2021-03-17 08:06] VITALS: BP 144/57
[2021-03-17] MEDS ORDERED: MOTRIN200 MG PO (11:10)
[2021-03-17] MEDS ORDERED: PREDNISONE20 MG PO (11:10)
[2021-03-17] MEDS ORDERED: AMLODIPINE BESYLATE 10 MG TAB PO SCH (12:15)
[2021-03-17 12:18] VITALS: BP 174/72
[2021-03-17] MEDS ORDERED: NORVASC10 MG PO (12:35)
== END 2021-03-17 13:09 | disposition home or self-care (01) ==
LOC: ER 20:53 → ERHOLD 22:24 → MED/SURG2 03-16 00:29
PROVIDERS: ADMIT Internal Medicine; ATTEND Internal Medicine
DX: R07.9 Chest pain, unspecified (principal); M06.9 Rheumatoid arthritis, unspecified; I10 Essential (primary) hypertension; Z20.822 Contact with and (suspected) exposure to COVID-19; D64.9 Anemia, unspecified; E66.9 Obesity, unspecified; Z68.31 Body mass index [BMI] 31.0-31.9, adult
CPT/HCPCS: 36415 ×2; 71045; 71260; 78452; 80053 ×2; 80061; 82550 ×2; 82553 ×2; 82607; 82728; 82746; 83540; 83690; 84466; 84484 ×2; 85025 ×2; 85379; 93005; 93017; 93306; 99284; A9502; G0378 ×3; J1885; J2270 ×2; J2405 ×2; J7030; J7512 ×2; Q9967; U0002

== ENCOUNTER 2021-08-28 12:52 | Emergency (ER) | payer OTHER ==
[~2021-08-28] VITALS: Ht 154.9 cm; Wt 76.7 kg
[~2021-08-28 12:52] MED LIST changes: +ATORVASTATIN CA10 MG PO; +MOTRIN200 MG PO; +NORVASC10 MG PO
[2021-08-28] MEDS ORDERED: ONDANSETRON HCL 4 MG ORAL DISINTEGRATING TAB PO ONE (13:30)
[2021-08-28] MEDS ORDERED: KETOROLAC TROMETHAMINE 60 MG/2 ML VIAL IM ONE (13:30)
[2021-08-28] MEDS ORDERED: DEXAMETHASONE SOD PHOS 10 MG/1 ML VIAL IM ONE (13:30)
[2021-08-28] MEDS ORDERED: KETOROLAC TROMETHAMINE 30 MG/ML VIAL ONE (13:35)
== END 2021-08-28 13:35 | disposition home or self-care (01) ==
LOC: ER 13:00
DX: M25.512 Pain in left shoulder (principal); M54.2 Cervicalgia; M25.522 Pain in left elbow; M25.561 Pain in right knee; M06.9 Rheumatoid arthritis, unspecified; I10 Essential (primary) hypertension
CPT/HCPCS: 99282; J1100; J1885; Q0162

== ENCOUNTER 2021-12-20 13:25 | Emergency (ER) | payer OTHER ==
[~2021-12-20] VITALS: Ht 154.9 cm; Wt 76.7 kg
[2021-12-20] MEDS ORDERED: IBUPROFEN 400 MG TAB PO ONE (13:45)
== END 2021-12-20 15:47 | disposition home or self-care (01) ==
LOC: ER 13:45
DX: R05.9 Cough, unspecified (principal); U07.1 COVID-19; I10 Essential (primary) hypertension; M06.9 Rheumatoid arthritis, unspecified
CPT/HCPCS: 0223U; 36415; 71046; 99283

== ENCOUNTER 2021-12-26 12:00 | Observation (INO) | payer OTHER ==
[~2021-12-26] VITALS: Ht 154.9 cm; Wt 79.4 kg
[2021-12-26 13:01] LABS: BASOPHILS % 0.2 % (0.0-1.0); EOSINOPHILS % 0.4 % (0.0-6.0); HEMATOCRIT 37.1 % (34.2-44.1); HEMOGLOBIN 11.7 g/dL (12.0-16.0); LYMPHOCYTES # (AUTO) 1.2 (1.0-3.2); LYMPHOCYTES % 14.7 % (18.0-39.1); MEAN CORPUSCULAR HEMOGLOBIN 28.2 pg (28-32); MEAN CORPUSCULAR HGB CONC 31.5 g/dL (31-35); MEAN CORPUSCULAR VOLUME 89.4 fL (81-99); MONOCYTES # (AUTO) 0.6 (0.2-0.8); MONOCYTES % 7.3 % (4.4-11.3); NEUTROPHILS # (AUTO) 6.5 (2.1-6.9); NEUTROPHILS % 77.2 % (38.7-80.0); PLATELET COUNT 320 x10e3/uL (140-360); RED BLOOD COUNT 4.15 x10e6/uL (3.6-5.1)
[2021-12-26 13:21] LABS: BAND NEUTROPHILS % (MANUAL) 1 %; EOSINOPHILS % (MANUAL) 1 % (0-7); LYMPHOCYTES % (MANUAL) 20 % (19-48); MONOCYTES % (MANUAL) 7 % (3.4-9.0); NEUTROPHILS % (MANUAL) 69 % (40-74); PLATELET ESTIMATE ADEQUATE; PLATELET MORPHOLOGY COMMENT NORMAL
[2021-12-26 13:31] LABS: ALBUMIN/GLOBULIN RATIO 0.6 (0.8-2.0); ANION GAP 9.6 mmol/L (8-16); CALCIUM 9.9 mg/dL (8.4-10.2); CREATININE, SERUM 0.77 mg/dL (0.57-1.11); POTASSIUM 3.6 mmol/L (3.5-5.1)
[2021-12-26] MEDS ORDERED: Morphine 4mg INJECTION 4 MG/ML INJ IV PRN ×2 (14:45→18:15)
[2021-12-26] MEDS: ONDANSETRON HCL INJ 2MG/ML 2ML 2 MG/ML VIAL IV PRN ×3 (15:07→23:25)
[2021-12-26] MEDS ORDERED: IOPAMIDOL 370 MG/ML 100 ML INFUS..BTL INJ ONE (15:20)
[2021-12-26] MEDS ORDERED: KETOROLAC TROMETHAMINE 30 MG/ML VIAL IV STA (16:14)
[2021-12-26] MEDS ORDERED: LORAZEPAM 0.5 MG TAB PO ONE (16:45)
[2021-12-26] MEDS ORDERED: ONDANSETRON HCL INJ 2MG/ML 2ML 2 MG/ML VIAL IV PRN (18:15)
[2021-12-26] MEDS ORDERED: SODIUM CHLORIDE FLUSH 10 ML SYR INJ PRN (18:15)
[2021-12-26] MEDS ORDERED: LOSARTAN POTASS25 MG PO (19:52)
[2021-12-26] MEDS: LOSARTAN POTASSIUM 25 MG TAB PO SCH (20:17)
[2021-12-26 21:15] LABS: CREATINE KINASE MB 0.3 ng/mL (0-5.0)
[2021-12-26] MEDS ORDERED: HYDRALAZINE HCL 20 MG/ML VIAL IV PRN (22:45)
[2021-12-26] MEDS ORDERED: HYDRALAZINE HCL 20 MG/ML VIAL ONE (22:51)
[2021-12-27] VITALS: BP 158/88
[2021-12-27 01:43] VITALS: BP 158/88
[2021-12-27 03:13] VITALS: BP 158/88
[2021-12-27 03:57] LABS: CREATINE KINASE MB 0.4 ng/mL (0-5.0)
[2021-12-27 05:42] LABS: BASOPHILS % 0.3 % (0.0-1.0); EOSINOPHILS % 0.2 % (0.0-6.0); HEMATOCRIT 34.9 % (34.2-44.1); HEMOGLOBIN 11.5 g/dL (12.0-16.0); LYMPHOCYTES % 16.6 % (18.0-39.1); MEAN CORPUSCULAR HEMOGLOBIN 28.1 pg (28-32); MEAN CORPUSCULAR VOLUME 85.3 fL (81-99); MONOCYTES # (AUTO) 0.3 (0.2-0.8); MONOCYTES % 5.5 % (4.4-11.3); NEUTROPHILS # (AUTO) 4.6 (2.1-6.9); NEUTROPHILS % 77.1 % (38.7-80.0); PLATELET COUNT 297 x10e3/uL (140-360); RED BLOOD COUNT 4.09 x10e6/uL (3.6-5.1); RED CELL DISTRIBUTION WIDTH 13.1 % (11.7-14.4)
[2021-12-27 05:48] VITALS: BP 122/86
[2021-12-27 06:10] LABS: ALBUMIN 2.9 g/dL (3.5-5.0); ALBUMIN/GLOBULIN RATIO 0.6 (0.8-2.0); ANION GAP 12.5 mmol/L (8-16); CREATININE, SERUM 0.8 mg/dL (0.57-1.11); MAGNESIUM 1.9 MG/DL (1.3-2.1); POTASSIUM 3.5 mmol/L (3.5-5.1)
[2021-12-27 06:29] LABS: CREATINE KINASE MB 0.5 ng/mL (0-5.0)
[2021-12-27 08:05] VITALS: BP 141/76
[2021-12-27 08:06] VITALS: BP 141/76
[2021-12-27] MEDS ORDERED: ASPIRIN 81 MG ENTERIC COATED PO SCH (09:00)
[2021-12-27] MEDS: LOSARTAN POTASSIUM 25 MG TAB PO SCH (09:12)
[2021-12-27] MEDS ORDERED: KETOROLAC TROME10 MG PO (09:35)
[2021-12-27] MEDS ORDERED: PREDNISONE10 MG PO (09:35)
[2021-12-27 09:55] LABS: CHOL/HDL RATIO 4.7 (3.0-3.6)
[2021-12-27] MEDS ORDERED: PREDNISONE 10 MG TAB PO SCH (10:00)
== END 2021-12-27 11:34 | disposition home or self-care (01) ==
LOC: ER 12:20 → ERHOLD 18:03 → INTOOBSV 18:03 → MED/SURG2 23:54
PROVIDERS: ADMIT Internal Medicine; ATTEND Internal Medicine
DX: R07.89 Other chest pain (principal); U07.1 COVID-19; M06.9 Rheumatoid arthritis, unspecified; Z79.52 Long term (current) use of systemic steroids; G80.9 Cerebral palsy, unspecified; I10 Essential (primary) hypertension; R79.1 Abnormal coagulation profile
CPT/HCPCS: 0223U; 36415 ×2; 71045; 71260; 80053 ×2; 80061; 82550 ×2; 82553 ×2; 83690; 83735; 84484 ×2; 85025 ×2; 85379; 93005 ×2; 93306; 99284; G0378 ×2; J0360; J1885; J2270; J2405; Q9967

== ENCOUNTER 2022-04-16 10:38 | Emergency (ER) | payer OTHER ==
[~2022-04-16] VITALS: Ht 154.9 cm; Wt 33.6 kg
[~2022-04-16 10:38] MED LIST changes: +KETOROLAC TROME10 MG PO; +PREDNISONE10 MG PO
[2022-04-16] MEDS ORDERED: PREDNISONE20 MG PO (12:32)
[2022-04-16] MEDS ORDERED: ALBUTEROL1.25 MG/3 NEB (12:32)
== END 2022-04-16 12:45 | disposition home or self-care (01) ==
LOC: ER 10:45
DX: R05.9 Cough, unspecified (principal); J06.9 Acute upper respiratory infection, unspecified; J45.901 Unspecified asthma with (acute) exacerbation; Z20.822 Contact with and (suspected) exposure to COVID-19
CPT/HCPCS: 71046; 87400; 99283; U0002

== ENCOUNTER 2022-04-22 06:03 | Emergency (ER) | payer OTHER ==
[~2022-04-22] VITALS: Ht 154.9 cm; Wt 33.6 kg
[~2022-04-22 06:03] MED LIST changes: +ALBUTEROL1.25 MG/3 NEB
[2022-04-22] MEDS ORDERED: SODIUM CHLORIDE 0.9% 1000ML 1,000 ML IV STA (06:23)
[2022-04-22] MEDS ORDERED: ONDANSETRON HCL INJ 2MG/ML 2ML 2 MG/ML VIAL IV STA (06:23)
[2022-04-22] MEDS ORDERED: Morphine 4mg INJECTION 4 MG/ML INJ IV STA (06:31)
[2022-04-22 06:42] LABS: BASOPHILS % 0.2 % (0.0-1.0); EOSINOPHILS # (AUTO) 0.2 (0.0-0.4); EOSINOPHILS % 1.6 % (0.0-6.0); HEMATOCRIT 34.9 % (34.2-44.1); HEMOGLOBIN 11.4 g/dL (12.0-16.0); LYMPHOCYTES # (AUTO) 1.7 (1.0-3.2); LYMPHOCYTES % 18.6 % (18.0-39.1); MEAN CORPUSCULAR HEMOGLOBIN 28.9 pg (28-32); MEAN CORPUSCULAR HGB CONC 32.7 g/dL (31-35); MEAN CORPUSCULAR VOLUME 88.4 fL (81-99); MONOCYTES # (AUTO) 0.4 (0.2-0.8); MONOCYTES % 4.7 % (4.4-11.3); NEUTROPHILS # (AUTO) 6.8 (2.1-6.9); NEUTROPHILS % 74.6 % (38.7-80.0); PLATELET COUNT 284 x10e3/uL (140-360); RED BLOOD COUNT 3.95 x10e6/uL (3.6-5.1); RED CELL DISTRIBUTION WIDTH 12.9 % (11.7-14.4)
[2022-04-22 06:57] LABS: INR 1.06
[2022-04-22 07:01] LABS: STREPTOCOCCUS GRP A ANTIGEN NEGATIVE (NEGATIVE)
[2022-04-22 07:10] LABS: ALBUMIN 3.1 g/dL (3.5-5.0); ALBUMIN/GLOBULIN RATIO 0.8 (0.8-2.0); ANION GAP 13.3 mmol/L (8-16); CALCIUM 9.8 mg/dL (8.4-10.2); CREATININE, SERUM 0.7 mg/dL (0.57-1.11); MAGNESIUM 1.8 MG/DL (1.3-2.1); POTASSIUM 3.3 mmol/L (3.5-5.1)
[2022-04-22 07:19] LABS: CLARITY,URINE SL CLOUDY (CLEAR); COLOR,URINE YELLOW (YELLOW); KETONES,URINE NEGATIVE (NEGATIVE); LEUKOCYTE ESTERASE ,URINE NEGATIVE (NEGATIVE); NITRITE,URINE NEGATIVE (NEGATIVE); PROTEIN,URINE DIPSTICK NEGATIVE (NEGATIVE); URINE UROBILINOGEN 0.2 mg/dL (0.2 - 1)
[2022-04-22 07:20] LABS: CREATINE KINASE MB 1.1 ng/mL (0-5.0)
[2022-04-22 07:39] LABS: BACTERIA,URINE FEW /HPF; EPITHELIAL CELLS,URINE MODERATE /LPF; WBC,URINE (MAN) 0-5 /HPF (0-5)
[2022-04-22] MEDS ORDERED: IOPAMIDOL 370 MG/ML 100 ML INFUS..BTL INJ ONE (08:19)
[2022-04-22] MEDS ORDERED: PANTOPRAZOLE SO40 MG PO (08:43)
[2022-04-22] MEDS ORDERED: ONDANSETRON ODT4 MG PO (08:43)
[2022-04-22] MEDS ORDERED: DICYCLOMINE HCL20 MG PO (08:43)
[2022-04-22] MEDS ORDERED: BENZONATATE100 MG PO (09:09)
== END 2022-04-22 09:49 | disposition home or self-care (01) ==
LOC: ER 06:08
DX: R11.2 Nausea with vomiting, unspecified (principal); B34.9 Viral infection, unspecified; R10.84 Generalized abdominal pain; R05.9 Cough, unspecified; I10 Essential (primary) hypertension; M06.9 Rheumatoid arthritis, unspecified; Z20.822 Contact with and (suspected) exposure to COVID-19
CPT/HCPCS: 36415; 71045; 74177; 80053; 81001; 82550; 82553; 83518; 83690; 83735; 84484; 85025; 85610; 85730; 87070; 93005; 99284; C9113; J2270; J2405; J7030; Q9967; U0002

== ENCOUNTER 2022-10-04 00:55 | Emergency (ER) | payer OTHER ==
[~2022-10-04] VITALS: Ht 154.9 cm; Wt 81.6 kg
[~2022-10-04 00:55] MED LIST changes: +DICYCLOMINE HCL20 MG PO; +ONDANSETRON ODT4 MG PO; +PANTOPRAZOLE SO40 MG PO
[2022-10-04] MEDS ORDERED: ALBUTEROL SULF 0.083% NEB SOLN 3 ML NEB NEB STA (01:00)
[2022-10-04] MEDS ORDERED: METHYLPREDNISOLONE SOD SUCC 125 MG/2ML VIAL IM ONE (01:00)
[2022-10-04] MEDS ORDERED: IPRATROPIUM BROMIDE 0.02% 2.5 ML NEB NEB ONE (01:00)
[2022-10-04] MEDS ORDERED: METHYLPREDNISOLONE SOD SUCC 125 MG/2ML VIAL ONE (01:06)
[2022-10-04] MEDS ORDERED: ACETAMINOPHEN 325 MG TAB ONE (01:08)
[2022-10-04] MEDS ORDERED: ACETAMINOPHEN 325 MG TAB PO ONE (01:15)
[2022-10-04 01:30] VITALS: PULSE 93; RESP 18; O2SAT 94
[2022-10-04] MEDS ORDERED: ALBUTEROL1.25 MG/3 NEB (02:54)
[2022-10-04] MEDS ORDERED: DOXYCYCLINE HY100 MG PO (02:54)
[2022-10-04] MEDS ORDERED: MEDROL4 M2 PO (02:54)
[2022-10-04 03:17] VITALS: BP 139/71; PULSE 90; RESP 19; TEMP 99.1; O2SAT 96
== END 2022-10-04 03:19 | disposition home or self-care (01) ==
LOC: ER 01:06
DX: R50.9 Fever, unspecified (principal); J45.901 Unspecified asthma with (acute) exacerbation; I10 Essential (primary) hypertension; M06.9 Rheumatoid arthritis, unspecified; Z20.822 Contact with and (suspected) exposure to COVID-19
CPT/HCPCS: 71045; 94640; 94799; 99283; J2930; U0002

== ENCOUNTER 2024-01-04 03:24 | Emergency (ER) | payer MEDICARE ==
[~2024-01-04] VITALS: Ht 154.9 cm; Wt 81.6 kg
[~2024-01-04 03:24] MED LIST changes: +BACTRIM DS TAB1 EACH PO; +CIPROFLOXACIN750 MG PO; +CYCLOBENZAPRINE5 MG PO; +DOXYCYCLINE HY100 MG PO; +MEDROL4 M2 PO; +NAPROXEN250 MG PO
[2024-01-04 03:30] VITALS: PULSE 71; RESP 16; TEMP 98.1; O2SAT 98
[2024-01-04] MEDS ORDERED: CYCLOBENZAPRINE5 MG PO (03:44)
[2024-01-04] MEDS: KETOROLAC TROMETHAMINE 30 MG/ML VIAL IM STA (03:50)
== END 2024-01-04 03:50 | disposition home or self-care (01) ==
LOC: ER 03:34
DX: M54.42 Lumbago with sciatica, left side (principal); I10 Essential (primary) hypertension; M06.9 Rheumatoid arthritis, unspecified
CPT/HCPCS: 99282; J1885

== ENCOUNTER 2024-08-29 01:24 | Emergency (ER) | payer MEDICARE ==
[~2024-08-29] VITALS: Ht 154.9 cm; Wt 81.6 kg
[2024-08-29 01:30] VITALS: TEMP 98
[2024-08-29 04:00] VITALS: PULSE 57; RESP 17
[2024-08-29 05:00] VITALS: BP 164/85; O2SAT 100
== END 2024-08-29 04:40 | disposition home or self-care (01) ==
LOC: ER 01:35
DX: S00.83XA Contusion of other part of head, initial encounter (principal); R51.9 Headache, unspecified; W01.0XXA Fall on same level from slipping, tripping and stumbling without subsequent striking against object, initial encounter; Y93.01 Activity, walking, marching and hiking; Y92.89 Other specified places as the place of occurrence of the external cause; I10 Essential (primary) hypertension; M06.9 Rheumatoid arthritis, unspecified
CPT/HCPCS: 70450; 99283

== ENCOUNTER 2024-09-03 06:06 | Emergency (ER) | payer MEDICARE ==
[~2024-09-03] VITALS: Ht 154.9 cm; Wt 81.6 kg
[2024-09-03 06:21] VITALS: TEMP 97.8
[2024-09-03] MEDS ORDERED: SODIUM CHLORIDE FLUSH 10 ML SYR IV PRN (06:30)
[2024-09-03] MEDS ORDERED: ONDANSETRON HCL INJ 2MG/ML 2ML 2 MG/ML VIAL ONE (06:38)
[2024-09-03 06:41] LABS: BASOPHILS % 0.2 % (0.0-1.0); EOSINOPHILS # (AUTO) 0.2 (0.0-0.4); EOSINOPHILS % 1.8 % (0.0-6.0); HEMATOCRIT 34.7 % (34.2-44.1); LYMPHOCYTES % 35.2 % (18.0-39.1); MEAN CORPUSCULAR HEMOGLOBIN 28.6 pg (28-32); MEAN CORPUSCULAR HGB CONC 31.7 g/dL (31-35); MEAN CORPUSCULAR VOLUME 90.4 fL (81-99); MONOCYTES # (AUTO) 0.8 (0.2-0.8); MONOCYTES % 9.2 % (4.4-11.3); NEUTROPHILS # (AUTO) 4.5 (2.1-6.9); NEUTROPHILS % 53.5 % (38.7-80.0); PLATELET COUNT 353 x10e3/uL (140-360); RED BLOOD COUNT 3.84 x10e6/uL (3.6-5.1); RED CELL DISTRIBUTION WIDTH 13.2 % (11.7-14.4); WHITE BLOOD COUNT 8.37 x10e3/uL (4.8-10.8)
[2024-09-03] MEDS: ONDANSETRON HCL INJ 2MG/ML 2ML 2 MG/ML VIAL IV STA (06:41)
[2024-09-03 06:55] LABS: INR 0.93
[2024-09-03 07:05] LABS: ALBUMIN/GLOBULIN RATIO 0.7 (0.8-2.0); ANION GAP 13.3 mmol/L (8-16); BILIRUBIN,TOTAL 0.2 mg/dL (0.2-1.2); CALCIUM 9.5 mg/dL (8.4-10.2); CREATININE, SERUM 0.73 mg/dL (0.57-1.11); TOTAL PROTEIN 7.2 g/dL (6.5-8.1)
[2024-09-03 07:07] LABS: POTASSIUM 3.3 mmol/L (3.5-5.1)
[2024-09-03 07:10] LABS: TROPONIN I 0.002 ng/mL (0-0.300)
[2024-09-03] MEDS: MECLIZINE HCL 12.5 MG TAB PO ONE (07:50)
[2024-09-03 09:45] LABS: CLARITY,URINE CLOUDY (CLEAR); COLOR,URINE YELLOW (YELLOW); LEUKOCYTE ESTERASE ,URINE SMALL (NEGATIVE); NITRITE,URINE POSITIVE (NEGATIVE); PH,URINE 6 (5 - 7); PROTEIN,URINE DIPSTICK 1+ (NEGATIVE)
[2024-09-03 09:46] LABS: BILIRUBIN,URINE NEGATIVE (NEGATIVE); GLUCOSE, URINE NEGATIVE (NEGATIVE); KETONES,URINE NEGATIVE (NEGATIVE); URINE UROBILINOGEN 0.2 mg/dL (0.2 - 1)
[2024-09-03 09:58] LABS: BACTERIA,URINE MANY /HPF; EPITHELIAL CELLS,URINE FEW /LPF; RBC,URINE 0-5 /HPF (0-5); TRANSITIONAL EPI CELLS,URINE RARE; WBC,URINE (MAN) >50 /HPF (0-5)
[2024-09-03] MEDS ORDERED: MECLIZINE HCL25 MG PO (11:22)
[2024-09-03] MEDS ORDERED: CEPHALEXIN500 MG PO (11:22)
[2024-09-03 11:33] VITALS: PULSE 71; RESP 17
[2024-09-03 11:52] VITALS: O2SAT 100
== END 2024-09-03 11:55 | disposition home or self-care (01) ==
LOC: ER 06:20
DX: R42 Dizziness and giddiness (principal); N39.0 Urinary tract infection, site not specified; R11.2 Nausea with vomiting, unspecified; I10 Essential (primary) hypertension; M06.9 Rheumatoid arthritis, unspecified; R94.31 Abnormal electrocardiogram [ECG] [EKG]
CPT/HCPCS: 36415; 70450; 71045; 80053; 81001; 83880; 84484; 85025; 85610; 85730; 87086; 87186; 93005; 94760; 99284; J0696; J2405; J8597

== ENCOUNTER 2025-03-05 05:14 | Emergency (ER) | payer OTHER, MEDICARE ==
[~2025-03-05] VITALS: Ht 154.9 cm; Wt 81.6 kg
[~2025-03-05 05:14] MED LIST changes: +CEPHALEXIN500 MG PO; +MECLIZINE HCL25 MG PO
[2025-03-05 05:20] VITALS: TEMP 97.9
[2025-03-05 06:00] LABS: BASOPHILS % 0.3 % (0.0-1.0); EOSINOPHILS % 2.7 % (0.0-6.0); LYMPHOCYTES % 14.3 % (18.0-39.1); MONOCYTES % 7.6 % (4.4-11.3); NEUTROPHILS % 74.7 % (38.7-80.0); RED CELL DISTRIBUTION WIDTH 12.4 % (11.7-14.4)
[2025-03-05] MEDS ORDERED: SODIUM CHLORIDE FLUSH 10 ML SYR IV PRN (06:00)
[2025-03-05 06:12] LABS: EST GLOMERULAR FILTRATION RATE 82 ML/MIN (>=60)
[2025-03-05] MEDS ORDERED: KETOROLAC TROMETHAMINE 30 MG/ML VIAL ONE (06:41)
[2025-03-05] MEDS ORDERED: DEXAMETHASONE SOD PHOS 10 MG/1 ML VIAL ONE (06:41)
[2025-03-05] MEDS: DEXAMETHASONE SOD PHOS 10 MG/1 ML VIAL IV ONE (06:47)
[2025-03-05] MEDS: KETOROLAC TROMETHAMINE 30 MG/ML VIAL IV STA (06:47)
[2025-03-05] MEDS: SODIUM CHLORIDE 0.9% 500ML 500 ML IV ONE (06:47)
[2025-03-05 07:05] LABS: CORONAVIRUS COVID-19 AG NEGATIVE (NEGATIVE)
[2025-03-05] MEDS ORDERED: PREDNISONE5 MG PO (07:38)
[2025-03-05] MEDS ORDERED: VOLTAREN ARTHRI20 GM TOP (07:38)
[2025-03-05] MEDS ORDERED: ULTRAM 50MG50 MG PO (07:38)
[2025-03-05] MEDS ORDERED: ONDANSETRON ODT8 MG PO (07:38)
[2025-03-05] MEDS ORDERED: HYDROCHLOROTHIA25 MG PO (07:38)
[2025-03-05] MEDS ORDERED: DULOXETINE HCL20 MG PO (07:38)
[2025-03-05 07:40] VITALS: PULSE 67; RESP 18; O2SAT 99
[2025-03-05] MEDS ORDERED: CEFDINIR300 MG PO (08:14)
[2025-03-05] MEDS ORDERED: DOXYCYCLINE HY100 MG PO (08:14)
== END 2025-03-05 08:28 | disposition home or self-care (01) ==
LOC: ER 05:20
DX: M25.59 Pain in other specified joint (principal); J18.9 Pneumonia, unspecified organism; M06.9 Rheumatoid arthritis, unspecified; I10 Essential (primary) hypertension; Z11.52 Encounter for screening for COVID-19
CPT/HCPCS: 36415; 71045; 80053; 84484; 85025; 87040; 87428; 93005; 94760; 99284; J1100; J1885; J7040